=== PATIENT | female | born 1935 | race Caucasian/White ===

== ENCOUNTER 2023-08-12 14:52 | Emergency (ER) | payer MEDICARE, SELFPAY ==
[2023-08-12 14:53] VITALS: BP 153/125; PULSE 92; RESP 18; TEMP 36.9; O2SAT 98; BMI 23.6
--- NOTE | 2023-08-12 15:13 | CT_ITS ---
STUDY: CT BRAIN WITHOUT CONTRAST REASON FOR EXAM: Female, 87 years old. head injury Individualized dose optimization techniques were used for this CT. TECHNIQUE: Transaxial CT imaging of the brain was performed without administration of intravenous contrast material. COMPARISON: None FINDINGS: There are calcifications noted in the distal vertebral arteries. There are calcifications noted in the cavernous carotid arteries. This is consistent for atherosclerotic disease. Normal calvarium. Normal soft tissues. There is mild cerebral atrophy with widening of the extra-axial spaces and ventricular dilatation. There are areas of decreased attenuation within the white matter tracts of the supratentorial brain, consistent with microvascular disease changes. Normal basal ganglia and thalami. Normal brainstem. There is mild cerebellar atrophy. There is no intracranial hemorrhage. There are no findings of an acute ischemic infarction. Degenerative changes of the mandibular condyles. ASPECTS Score for Acute Strokes: 04/03 CT/Brain/Head without Contrast IMPRESSION: There are no acute findings. Chronic involutional changes of the brain. Electronically Signed: Theodore Meléndez MD at 16:09 EST Reading Location ID and State: [facility] / [place] , Service support ,
--- NOTE | 2023-08-12 15:13 | CT_ITS ---
EXAM: CT MAXILLOFACIAL WITHOUT INTRAVENOUS CONTRAST CLINICAL INDICATION: head injury TECHNIQUE: Helically acquired images were obtained of the face without intravenous contrast. This CT exam was performed using one or more of the following dose reduction techniques: automated exposure control, adjustment of the mA and/or kV according to patient size, and/or use of iterative reconstruction technique. RADIATION DOSE: CTDIvol = 29.38 mGy, DLP = 496.03 mGy-cm COMPARISON: No relevant prior studies available. FINDINGS: BONES/JOINTS: Degenerative changes of the mandibular condyles. No displaced fracture. No discrete lytic or blastic abnormalities. SOFT TISSUES: Unremarkable. No focal subcutaneous swelling. No discrete fluid collections. ORBITS: Unremarkable. Both globes are unremarkable. Extraocular muscles are normal. Retrobulbar fat appears unremarkable. SINUSES: Unremarkable as visualized. Clear. MASTOID AIR CELLS: Unremarkable as visualized. Clear. DENTAL: No acute findings. No periodontal osseous erosion. CT/Sinus/Facial Bone IMPRESSION: Degenerative changes of the mandibular condyles. Electronically Signed: Theodore Meléndez MD at 16:11 EST ,
--- NOTE | 2023-08-12 15:13 | RAD_ITS ---
EXAM: XR LEFT HUMERUS, 2 OR MORE VIEWS CLINICAL INDICATION: pain TECHNIQUE: Frontal and lateral views of the left humerus. COMPARISON: No relevant prior studies available. FINDINGS: BONES/JOINTS: Degenerative changes of the left shoulder. No acute fracture. No subluxation. Normal alignment. No sclerotic or destructive changes observed. SOFT TISSUES: Unremarkable. No soft tissue swelling or gas. No radiopaque foreign body. RAD/Humerus min 2 Views IMPRESSION: No acute findings in the left humerus. Electronically Signed: Theodore Meléndez MD at 16:08 EST ,
--- NOTE | 2023-08-12 15:15 | EDS_ITS ---
<Statement entered by Ana Barnett MD - 08/12/23 18:45> I have personally performed a face to face assessment of the patient and have reviewed the OFE Note. Patient presents with son after fall at local store. He let her out of the of the car near the door and she slipped on ice falling onto her left side. She is able to do her shopping but developed swelling around her left eye and presents for evaluation. She did not lose consciousness. She is complaining of facial pain along with left shoulder pain. Patient sitting upright in bed no acute distress. Alert and talkative. Head and neck examination reveals ecchymosis and edema along the lateral portion of the left upper orbital rim. No lacerations noted. No focal C-spine tenderness noted. Heart is regular rate and rhythm. Lung sounds are clear. Abdomen is soft and nontender. Left upper extremity examination reveals mild tenderness at the proximal left humerus. Decreased range of motion secondary to pain. No obvious deformities. Good distal pulses and strong hand grasp. Left humerus and left shoulder x-rays per my interpretation reveal no obvious dislocation or fracture. Radiology interpretation reviewed and agrees. CT scans of the brain, facial bones, and C-spine revealed no evidence of acute trauma or injury. Test results discussed with the patient she will continue supportive care at home. Return instructions provided. HPI History of Present Illness Chief Complaint: Fall Narrative Narrative: 87-year-old female was walking into [facility] and slipped on the ice landing on her left side. She struck her left forehead on the pavement and injured her left shoulder. No LOC. She was with her son and was able to get up and continued shopping. She developed swelling and bruising and presents for evaluation. She has no headache, visual changes, neck pain, or nausea or vomiting. She is on baby aspirin, no blood thinners. She is right-hand dominant. [facility] Medical History no medical history Home Medications aspirin 81 mg tablet,delayed release (Adult Aspirin Regimen) 81 mg PO DAILY 08/12/23 [History Last Taken Unknown] Allergy/AdvReac Type Severity Reaction Status Date / Time No Known Allergies Allergy Verified 08/12/23 14:53 Surgical History (Updated 08/12/23 @ 15:18 by Margoth Andrade) Hx of cholecystectomy Social History Smoking Status: Never smoker ROS ROS ED ROS Narrative Eyes: Negative for visual change. GI: Negative for nausea, vomiting. Neuro: Negative for headache, motor/sensory dysfunction. Musc: Positive for left upper arm pain. EXAM Physical Exam Narrative Exam Narrative: CONST: Patient sitting in no acute distress. EYES: Normal inspection. PERRL, EOMI. ENT: Soft tissue swelling and bruising over left lateral superior orbital rim, no step-offs,, no raccoon eyes or leger sign, no hemotympanum, no nasal septal hematoma, no CSF otorrhea or rhinorrhea. NECK: Normal inspection. No midline spinal tenderness, no step off or crepitus. RESP: No respiratory distress, CTAB. CVS: Regular rate and rhythm, no murmur, no gallop. ABD: Soft and nontender, no guarding or rebound. Back: Normal inspection, no midline tenderness. SKIN: Tiny abrasion right distal ring finger. EXTREMITIES: Normal inspection of upper and lower extremities, mild tenderness left anterior shoulder and proximal humerus with limited shoulder range of motion, no deformity, no tenderness of elbow or distal extremity. No tenderness of right arm or lower extremities. 2+ radial DP pulses. NEURO: Oriented x4. PSYCH: Normal affect. Const Vital Signs: 08/12/23 14:53 08/12/23 15:21 Temperature 98.4 F Temperature Source Temporal Pulse Rate 92 Respiratory Rate 18 Respiratory Effort Normal Non-Labored Respiratory Depth Normal Respiratory Pattern Normal Blood Pressure 153/125 H Blood Pressure Mean 134 Pulse Ox 98 Oxygen Delivery Method Room Air Room Air MDM MDM MDM Narrative Medical decision making narrative: History gathered from: Patient and son Differential: Facial contusions, skull fracture, intracranial hemorrhage Patient had a mechanical fall and struck the left side of her head and left arm on the ground. No LOC. No blood thinners. She is up and ambulatory and has localized pain over the head injury but no other complaints. GCS 15. There is a left sided hematoma over the superior orbital rim but no signs of basilar skull fracture. She is neurologically intact. She is tender over the left shoulder and proximal humerus but has no deformity or crepitus and is distally neurovascularly intact. CT scans of the brain, facial bones, and cervical spine are all negative. Left arm x-rays negative. She declined analgesia here and will take [id number] Tylenol. I discussed head injury return precautions and she was discharged in stable condition. Radiography Diagnostic Testing: Clinical Impression(s) from Imaging Studies Brain CT 08/12/23 15:13 IMPRESSION: There are no acute findings. Chronic involutional changes of the brain. Electronically Signed: Theodore Meléndez MD at 16:09 EST , Facial/Sinus 08/12/23 15:13 IMPRESSION: Degenerative changes of the mandibular condyles. Electronically Signed: Theodore Meléndez MD at 16:11 EST , Humerus X-Ray 08/12/23 15:13 IMPRESSION: No acute findings in the left humerus. Electronically Signed: Theodore Meléndez MD at 16:08 EST , Cervical Spine CT 08/12/23 15:18 IMPRESSION: There are degenerative changes as noted above. Electronically Signed: Theodore Meléndez MD at 16:11 EST , Shoulder X-Ray 08/12/23 15:40 IMPRESSION: There are no acute findings of the shoulder. Electronically Signed: Theodore Meléndez MD at 16:08 EST , ED attending interpretation of left shoulder and humerus shows no acute fracture or dislocation. Discharge Plan Triage Chief Complaint: Fall ED Midlevel Provider: Elda Garcia ED Provider: Ana Barnett Dx/Rx/DC Orders Clinical Impression: Contusion of arm, left, Facial hematoma, Head injury Instructions: Bruises (Contusions) Prescriptions: No Action aspirin [Adult Aspirin Regimen] 81 mg tablet,delayed release (DR/EC) 81 mg PO DAILY Primary Care Provider: THEODORE MORRELL DO Referrals: THEODORE MORRELL DO [Other] Activity Restrictions/Additional Instructions: Your CT scan showed no evidence of broken bones or internal bleeding. Your left arm x-rays are negative. Take Tylenol as needed for pain and use ice for the swelling. Disposition Disposition: Home, Self Care
--- NOTE | 2023-08-12 15:18 | CT_ITS ---
STUDY: X-RAY - CERVICAL SPINE REASON FOR EXAM: Female, 87 years old. fall TECHNIQUE: CT Spine Cervical W/O Contrast Injection COMPARISON: None FINDINGS: Normal anterior atlantoaxial articulation. No acute findings of the odontoid process. There is straightening of the normal cervical lordosis. There is multi-level endplate spondylosis. There is multi-level degenerative disc disease with multilevel disc space narrowing. There is multi-level osseous foraminal stenosis. The soft tissue structures are unremarkable. CT/Spine Cervical without Contras IMPRESSION: There are degenerative changes as noted above. Electronically Signed: Theodore Meléndez MD at 16:11 EST ,
--- OUTSIDE RECORDS SUMMARY | 2023-08-12 15:34 | XMS RPT_ITS | CCD ---
Author Name Unknown Address [address] [place] [address] Organization [facility] Care Team Providers Care Research And Evaluation Analyst Name Role Phone Unavailable Primary Care Provider UnavailRAS Herbert Attending Unavailable Unavailable Primary Care Provider Unavailyash mooney Unavailable Primary Care Provider UnavailDULCE Seymour Attending Unavailable ANA AVILA Referring Unavailable ANA AVILA Referring Unavailable ANA AVILA Attending Unavailable NANCY HIGGINBOTHAM Referring Unavailable VANESSA ARAIZA Attending Unavailable NANCY HIGGINBOTHAM Attending Unavailable Medications Completed/Discontinued Medications Medication Drug Class(es) Dates Sig (Normalized) Sig (Original) aspirin 81 mg delayed release oral tablet (7 sources) Platelet Aggregation Inhibitor, Nonsteroidal Anti-inflammatory Drug take 1 tablet by mouth once daily aspirin, enteric coated (ASPIRIN, ENTERIC COATED) 81 mg EC tablet Take 81 mg by mouth once daily. 0 Active Problems Active Problems Problem Classification Problem Date Documented Da te Episodic/Chronic E Codes: Fall (5 sources) Fall; Translations: [Unspecified fall, initial encounter] Onset: 10-15-2021 Episodic Heart valve disorders (2 sources) Heart murmur; Translations: [Cardiac murmur, unspecified] Onset: 05-16-2022 Episodic Immunizations and screening for infectious disease (5 sources) Patient encounter status; Translations: [Encounter for immunization] Onset: 05-16-2022 Episodic Other aftercare (1 source) Removal of sutures done; Translations: [Encounter for removal of sutures] Episodic Other aftercare (1 source) Wound finding; Translations: [Encounter for other specified aftercare] Episodic Other injuries and conditions due to external causes (1 source) Injury of head; Translations: [Unspecified injury of head, initial encounter] Episodic Other screening for suspected conditions (not mental disorders or infectious disease) (2 sources) Encounter for screening for diabetes mellitus; Translations: [Encounter for screening for lipoid disorders] Onset: 05-05-2022 Episodic Thyroid disorders (4 sources) Thyroid nodule; Translations: [Nontoxic single thyroid nodule] Onset: 05-16-2022 Chronic Past or Other Problems Problem Classification Problem Date Documented Da te Episodic/Chronic Fracture of upper limb (1 source) Nondisplaced fracture of neck of fifth metacarpal bone, left hand, initial encounter for closed fracture; Translations: [Nondisplaced fracture of neck of fifth metacarpal bone, left hand, initial encounter for closed fracture] Onset: 02-09-2022 Episodic Open wounds of extremities (1 source) Laceration without foreign body of left hand, initial encounter; Translations: [Skin tear of left hand without complication, initial encounter] Onset: 02-09-2022 Episodic Open wounds of head; neck; and trunk (2 sources) Laceration of left eyebrow; Translations: [Laceration without foreign body of left eyelid and periocular area, subsequent encounter] Onset: 10-15-2021 Episodic Other injuries and conditions due to external causes (2 sources) Unspecified injury of head, initial encounter; Translations: [Closed head injury, initial encounter] Onset: 10-15-2021 Episodic Superficial injury; contusion (4 sources) Contusion of left hand; Translations: [Contusion of left hand, initial encounter] Onset: 10-15-2021 Episodic Results Test Name Value Interpretation Reference Range Facil ity Vital Signs Date Time Vital Sign Value Performing Clinician Zak tovar 05-16-2022 15:14-0500 Body temperature 97.9 [degF] Dulce Bradford [employer] Work Phone: [facility] 05-16-2022 15:14-0500 Body weight 55.52 kg Dulce Bradford [employer] Work Phone: [facility] 05-16-2022 15:14-0500 Diastolic blood pressure 76 mm[Hg] Dulce Bradford [employer] Work Phone: [facility] 05-16-2022 15:14-0500 Heart rate 90 /min Dulce Bradford [employer] Work Phone: [facility] 05-16-2022 15:14-0500 SaO2% (BldA) [Mass fraction] 97 % Dulce Bradford DO Work Phone: [facility] 05-16-2022 15:14-0500 Systolic blood pressure 136 mm[Hg] Dulce Bradford DO Work Phone: [facility] 04-20-2022 16:07-0400 Body height 157.5 cm Ana Avila APRN.SPOT CHECKER Work Phone: [facility] 04-20-2022 16:07-0400 Body temperature 97 [degF] Ana Avila APRN.SPOT CHECKER Work Phone: [facility] 04-20-2022 16:07-0400 Body weight 53.07 kg Ana Avila APRN.SPOT CHECKER Work Phone: [facility] 04-20-2022 16:07-0400 Diastolic blood pressure 72 mm[Hg] Ana Avila APRN.SPOT CHECKER Work Phone: [facility] 04-20-2022 16:07-0400 Heart rate 88 /min Ana Avila APRN.SPOT CHECKER Work Phone: [facility] 04-20-2022 16:07-0400 SaO2% (BldA) [Mass fraction] 98 % Ana Avila APRN.SPOT CHECKER Work Phone: [facility] 04-20-2022 16:07-0400 Systolic blood pressure 138 mm[Hg] Ana Avila APRN.SPOT CHECKER Work Phone: [facility] 04-11-2022 19:12-0400 Body temperature 98.29 [degF] Ed Coreno PA-C Work Phone: [facility] 04-11-2022 19:12-0400 Body weight 53.07 kg Ed Coreno PA-C Work Phone: [facility] 04-11-2022 19:12-0400 Diastolic blood pressure 93 mm[Hg] Ed Coreno PA-C Work Phone: [facility] 04-11-2022 19:12-0400 Heart rate 109 /min Ed Coreno PA-C Work Phone: [facility] 04-11-2022 19:12-0400 SaO2% (BldA) [Mass fraction] 97 % Ed Coreno PA-C Work Phone: [facility] 04-11-2022 19:12-0400 Systolic blood pressure 171 mm[Hg] Ed Coreno PA-C Work Phone: [facility] 10-31-2021 10:53-0400 Body temperature 99 [degF] Zenaida Chiplinski OVERHEAD GARAGE DOOR HANGER.SPOT CHECKER Work Phone: [facility] 10-31-2021 10:53-0400 Diastolic blood pressure 94 mm[Hg] Zenaida Chiplinski OVERHEAD GARAGE DOOR HANGER.SPOT CHECKER Work Phone: [facility] 10-31-2021 10:53-0400 Heart rate 87 /min Zenaida Chiplinski OVERHEAD GARAGE DOOR HANGER.SPOT CHECKER Work Phone: [facility] 10-31-2021 10:53-0400 SaO2% (BldA) [Mass fraction] 99 % Zenaida Chiplinski OVERHEAD GARAGE DOOR HANGER.SPOT CHECKER Work Phone: [facility] 10-31-2021 10:53-0400 Systolic blood pressure 156 mm[Hg] Zenaida Chiplinski OVERHEAD GARAGE DOOR HANGER.SPOT CHECKER Work Phone: [facility] 10-21-2021 11:41-0400 Body temperature 99.19 [degF] America Lopez OVERHEAD GARAGE DOOR HANGER.SPOT CHECKER Work Phone: [facility] 10-21-2021 11:41-0400 Diastolic blood pressure 85 mm[Hg] America Lopez OVERHEAD GARAGE DOOR HANGER.SPOT CHECKER Work Phone: [facility] 10-21-2021 11:41-0400 Heart rate 76 /min America Lopez OVERHEAD GARAGE DOOR HANGER.SPOT CHECKER Work Phone: [facility] 10-21-2021 11:41-0400 SaO2% (BldA) [Mass fraction] 98 % America Lpoez OVERHEAD GARAGE DOOR HANGER.SPOT CHECKER Work Phone: [facility] 10-21-2021 11:41-0400 Systolic blood pressure 155 mm[Hg] America Lopez APRN.CNP Work Phone: [facility] Encounters Encounter Date Encounter Type Care Provider Facility Start: 05-16-2022 End: 05-17-2022 ambulatory DULCE BRADFORD Facility:[facility] Start: 05-16-2022 End: 05-16-2022 Patient encounter procedure Dulce Bradford DO Work Phone: [facility] Procedures Date Procedure Procedure Detail Performing Clinician Start: 04-29-2022 Us soft tissue head & neck real time imge docm Ana Avila APRN.CNP Work Phone: Start: 04-20-2022 Alignment [employer] COVI D-19 BIVALENT BOOSTER VACCINE, AGE 12+ YR Ana Avila APRN.CNP Work Phone: Plan of Treatment Date Care Activity Detail Author Start: 01-05-2030 Urine microalbumin profile [facility] Start: 05-05-2025 DIABETES SCREEN DIABETES SCREEN [facility] Start: 05-05-2025 Diabetes Screening Diabetes Screening [facility] Start: 02-23-2023 Covid-19 Vaccine ( season) Covid-19 Vaccine ( season) [facility] Start: 02-23-2023 Influenza vaccination Influenza Vaccine (#1) [facility] Start: 06-25-2022 Advance Directive Discussion Advance Directive Discussion [facility] Start: 06-25-2022 Depression Assessment Depression Assessment [facility] Start: 04-20-2022 End: 06-20-2022 Comprehensive metabolic 2000 panel - Serum or Plasma COMP METABOLIC PANEL Lab Routine Screening for diabetes mellitus Expected: 04/20/2022, Expires: 06/20/2022 [facility] Work Phone: Immunizations Immunization Date Immunization Notes Care Provider Fa cility 05-16-2022 pneumococcal Conjuga te, unspecified formulation Dulce Bradford DO Work Phone: [facility] Work Phone: 05-16-2022 pneumococcal (PCV20) vaccine, 20 valent (PREVNAR 20) Dulceamena Bradford DO Work Phone: [facility] 04-20-2022 COVID-19 booster vaccine, age 12+ yr, bivalent ([employer]) Ana Avila APRN.SPOT CHECKER Work Phone: [facility] 03-04-2022 influenza (aIIV4) vaccine, age 65+ yr, quadrivalent, PF (FLUAD QUADRIVALENT) Ana Avila APRN.SPOT CHECKER Work Phone: [facility] 03-04-2022 influenza virus vaccine, unspecified formulation Us 1 [facility] 06-07-2021 zoster vaccine recombinant Ana Avila APRN.SPOT CHECKER Work Phone: [facility] 03-31-2021 zoster vaccine recombinant Ana Avila APRN.SPOT CHECKER Work Phone: [facility] 03-04-2020 influenza, injectabl e, quadrivalent, preservative free Ana Avila APRN.SPOT CHECKER Work Phone: [facility] 01-06-2020 tetanus toxoid, redu janice diphtheria toxoid, and acellular pertussis vaccine, adsorbed America Lopez APRN.SPOT CHECKER Work Phone: [facility] 03-17-2019 Seasonal trivalent influenza vaccine, adjuvanted, preservative free Ana Avila APRN.SPOT CHECKER Work Phone: [facility] 03-25-2018 influenza, high dose seasonal, preservative-free Ana Avila OVERHEAD GARAGE DOOR HANGER.SPOT CHECKER Work Phone: [facility] 04-20-2017 influenza, high dose seasonal, preservative-free Ana Coos OVERHEAD GARAGE DOOR HANGER.SPOT CHECKER Work Phone: [facility] 04-25-2016 influenza, high dose seasonal, preservative-free Ana Coos OVERHEAD GARAGE DOOR HANGER.SPOT CHECKER Work Phone: [facility] 04-20-2015 influenza, seasonal, injectable, preservative free Ana Avila OVERHEAD GARAGE DOOR HANGER.SPOT CHECKER Work Phone: [facility] 03-25-2014 influenza, seasonal, injectable Ana Avila OVERHEAD GARAGE DOOR HANGER.SPOT CHECKER Work Phone: [facility] 04-04-2013 influenza, seasonal, injectable Ana Avila OVERHEAD GARAGE DOOR HANGER.SPOT CHECKER Work Phone: [facility] Payers Date Payer Category Payer Unknown MEDPAY MEDPAY [id number] 2022-Present [phone] [id number] [facility] [id number] [place] [address] Indemnity [id number] 2022 Unknown [id number] 2001 Medicare MEDICARE MEDICAR E A AND B [id number] 2001-Present [phone] [place] [address] Medicare [id number] 2001 Medicare MEDICARE MEDICAR E A AND B [id number] 2001-Present [phone] [place] [address] Medicare [id number] 2001 Medicare [id number] Social History Date Type Detail Facility Start: 01-06-2020 End: 02-08-2022 Tobacco smoking status VAIS Never smoked tobacco [facility] Start: 01-06-2020 End: 02-08-2022 Tobacco use and exposure Smokeless tobacco non-user [facility] Start: 1935 Sex Assigned At Not on file [facility] Start: 10-05-2021 End: 05-16-2022 Exposure to SARS-CoV-2 (event) Not sure [facility] Start: 02-16-2022 End: 04-21-2022 Alcohol intake Lifetime non-drinker (finding) [facility] Start: 04-20-2022 End: 05-16-2022 History SDOH Alcohol Binge 1 [facility] jose alberto Start: 04-20-2022 End: 05-16-2022 History SDOH Social Connections Phone 5 [facility] Start: 04-20-2022 End: 05-16-2022 History SDOH Social Connections Get Together 4 [facility] Start: 04-20-2022 End: 05-16-2022 History SDOH Social Connections Anabaptism 3 [facility] Start: 04-20-2022 History SDOH Physica l Activity DPW 7 [facility] Start: 04-20-2022 End: 05-16-2022 History SDOH Transport Med 2 [facility] jose alberto Start: 05-16-2022 History SDOH Alcohol Std Drinks 0 [facility] Start: 02-09-2022 End: 04-20-2022 History of Social function [facility] jose albetro Start: 02-09-2022 End: 04-20-2022 Social connection and isolation panel [facility] Active Member of Clu bs or Organizations Not on file [facility] Are you now , , , , never or living with a partner? [facility] How often do you hav e 6 or more drinks on 1 occasion? Never [facility] Do you feel stress - tense, restless, nervous, or anxious, or unable to sleep at night because your mind is troubled all the time - these days [OSQ] To some extent [facility] (I/We) worried wheth er (my/our) food would run out before (I/we) got money to buy more. Never true [facility] In the past 12 month s, was there a time when you were not able to pay the mortgage or rent on time? No [facility] Clinical Notes 10-15-2021 to 05-16-2022 Dulce Bradford DO - 05/16/2022 3:25 PM Teagan Adams RT(R) - 04/29/2022 8:15 AM Clair Avila APRN.SPOT CHECKER - 04/20/2022 4:24 PM EDTPatient InstructionsPatient Instructions Note Date & Type Note Facility 05-16-2022 Note HNO ID: [id number] Author: Dulce K Sanchez, DO Service: ? Author Type: Physician Type: Progress Notes Filed: 05/16/2022 3:52 PM Note Text: Pt presents to establish care. Fu er multiple x in past year for mechanical falls. All have been under circumstances when pt not using cane. Has been encouraged over and again to use assistive devices and to not do things ought not be doing. Work ups have been negative re ct neck, brain. Noted thyroid nodules, multiple. Bx suggested Rather unremarkable hx for age. Really has no co today apart from oa aches but not wanting to use meds for sfx The history is provided by the patient and a relative. HISTORY REVIEWED No past medical history on file. No past surgical history on file. No family history on file. Social History Social History Narrative Not on file Allergies: ALLERGIES No Known Allergies Medications: aspirin, enteric coated (ASPIRIN, ENTERIC COATED) 81 mg EC tablet Take 81 mg by mouth once daily. Problem List: There is no problem list on file for this patient. Review of Systems Constitutional: Negative. Respiratory: Negative. Cardiovascular: Negative. Gastrointestinal: Negative. Endocrine: Negative. Neurological: Negative. Light-headedness: mechanical falls. Physical Exam Vitals and nursing note reviewed. Constitutional: Appearance: She is well-developed. Cardiovascular: Rate and Rhythm: Normal rate and regular rhythm. Heart sounds: Murmur (signif holosyst murmur aortic post, less so at mitral.) heard. No friction rub. No gallop. Pulmonary: Effort: Pulmonary effort is normal. Breath sounds: Normal breath sounds. Abdominal: General: Bowel sounds are normal. Palpations: Abdomen is soft. Neurological: Mental Status: She is alert. Psychiatric: Behavior: Behavior normal. BP 136/76 Pulse 90 Temp 36.6 ?C (97.9 ?F) Wt 55.5 kg (122 lb 6.4 oz) SpO2 97% BMI 22.39 kg/m? ASSESSMENT/PLAN: 1. Thyroid nodule - ICD9: 241.0, ICD10: E04.1 (primary diagnosis) Sched bx as recommended. Discuss w pt will do to get info but does not relegate pt to sx. Agrees to move forward - IMAGING GUIDED BIOPSY THYROID 2. Encounter for immunization - ICD9: V03.89, ICD10: Z23 - PNEUMOCOCCAL VACCINE (PREVNAR 20) 3. Cardiac murmur - ICD9: 785.2, ICD10: R01.1 Long standing and has been told before. Apparently no siu/echo for per pt. Discuss can pursue if pt wishes. Dulce Bradford, DO [facility] 05-16-2022 History of Present illness Narrative Pt presents to establish care. Fu er multiple x in past year for mechanical falls. All have been under circumstances when pt not using cane. Has been encouraged over and again to use assistive devices and to not do things ought not be doing. Work ups have been negative re ct neck, brain. Noted thyroid nodules, multiple. Bx suggested Rather unremarkable hx for age. Really has no co today apart from oa aches but not wanting to use meds for sfx The history is provided by the patient and a relative. HISTORY REVIEWED No past medical history on file. No past surgical history on file. No family history on file. Social History Social History Narrative Not on file Allergies: ALLERGIES No Known Allergies Medications: aspirin, enteric coated (ASPIRIN, ENTERIC COATED) 81 mg EC tablet Take 81 mg by mouth once daily. Problem List: There is no problem list on file for this patient. Review of Systems Constitutional: Negative. Respiratory: Negative. Cardiovascular: Negative. Gastrointestinal: Negative. Endocrine: Negative. Neurological: Negative. Light-headedness: mechanical falls. Physical Exam Vitals and nursing note reviewed. Constitutional: Appearance: She is well-developed. Cardiovascular: Rate and Rhythm: Normal rate and regular rhythm. Heart sounds: Murmur (signif holosyst murmur aortic post, less so at mitral.) heard. No friction rub. No gallop. Pulmonary: Effort: Pulmonary effort is normal. Breath sounds: Normal breath sounds. Abdominal: General: Bowel sounds are normal. Palpations: Abdomen is soft. Neurological: Mental Status: She is alert. Psychiatric: Behavior: Behavior normal. BP 136/76 Pulse 90 Temp 36.6 C (97.9 F) Wt 55.5 kg (122 lb 6.4 oz) SpO2 97% BMI 22.39 kg/m ASSESSMENT/PLAN: 1. Thyroid nodule - ICD9: 241.0, ICD10: E04.1 (primary diagnosis) Sched bx as recommended. Discuss w pt will do to get info but does not relegate pt to sx. Agrees to move forward - IMAGING GUIDED BIOPSY THYROID 2. Encounter for immunization - ICD9: V03.89, ICD10: Z23 - PNEUMOCOCCAL VACCINE (PREVNAR 20) 3. Cardiac murmur - ICD9: 785.2, ICD10: R01.1 Long standing and has been told before. Apparently no siu/echo for per pt. Discuss can pursue if pt wishes. Dulce Bradford DO documented in this encounter [facility] 04-29-2022 Note HNO ID: [id number] Author: RT Maritza(R) Service: ? Author Type: Sales Porter Type: Progress Notes Filed: 04/29/2022 8:24 AM Note Text: Radiology Service Progress Note PATIENT NAME: Yeimy Paniagua DATE OF SERVICE: April 29, 2022 TIME: 8:23 AM PATIENT IDENTITY VERIFICATION COMPLETED USING TWO (2) IDENTIFIERS: Name and Date of confirmed by patient verbally. FALL SCREENING: Has the patient had 2 falls in the last year or 1 fall with injury or currently using an Ambulatory Assistive Device (Walker, Cane, Wheelchair, Crutches, etc.)? No PATIENT GENDER DATA: Female. status: : No status: NO. PATIENT RELEVANT IMPLANT DATA REVIEWED: Not Applicable RADIOLOGY DEPARTMENT: Ultrasound thyroid PERIPHERAL IV DATA: Not applicable SIGNED BY: RT Maritza(R) April 29, 2022 8:23 AM [facility] 04-29-2022 History of Present illness Narrative Radiology Service Progress Note PATIENT NAME: Yeimy Paniagua DATE OF SERVICE: April 29, 2022 TIME: 8:23 AM PATIENT IDENTITY VERIFICATION COMPLETED USING TWO (2) IDENTIFIERS: Name and Date of confirmed by patient verbally. FALL SCREENING: Has the patient had 2 falls in the last year or 1 fall with injury or currently using an Ambulatory Assistive Device (Walker, Cane, Wheelchair, Crutches, etc.)? No PATIENT GENDER DATA: Female. status: : No status: NO. PATIENT RELEVANT IMPLANT DATA REVIEWED: Not Applicable RADIOLOGY DEPARTMENT: Ultrasound thyroid PERIPHERAL IV DATA: Not applicable SIGNED BY: RT Maritza(R) April 29, 2022 8:23 AM documented in this encounter [facility] 04-20-2022 Note HNO ID: [id number] Author: Ana Avila APRN.SPOT CHECKER Service: ? Author Type: Nurse Practitioner Type: Progress Notes Filed: 04/21/2022 7:31 AM Note Text: This note was created using F?rsat Bu F?rsatriter. Subjective Yeimy Paniagua is a 86 year old female. Patient presents with: Fall: Fell at home 04/12/2022 Yeimy Paniagua is a 86 year old female who presents as new patient to our practice for ER follow up She fell and hit her head on 04/12/22. Went to ER ER report and CT head and neck reviewed. She is agreeable to recommendation for US thyroid Feeling fine since the fall. No symptoms She feels great. Lives alone in [place]. Son, daughter and son-in law assist in her care Neighbor checks in daily Walks with cane She plans to sell home and move in with son eventually Review of Systems Constitutional: Negative for chills, diaphoresis, fatigue and fever. HENT: Negative for congestion, rhinorrhea and sore throat. Eyes: Negative for visual disturbance. Respiratory: Negative for cough, chest tightness, shortness of breath and wheezing. Cardiovascular: Negative for chest pain, palpitations and leg swelling. Gastrointestinal: Negative for abdominal pain, constipation, diarrhea, nausea and vomiting. Genitourinary: Negative for decreased urine volume, difficulty urinating, frequency and urgency. Skin: Negative for rash. Neurological: Negative for dizziness, tremors, syncope, weakness, light-headedness, numbness and headaches. Psychiatric/Behavioral: Negative for confusion, dysphoric mood and sleep disturbance. The patient is not nervous/anxious. Objective BP 138/72 Pulse 88 Temp 36.1 ?C (97 ?F) (Left Tympanic) Ht 157.5 cm (5' 2 ) Wt 53.1 kg (117 lb) SpO2 98% BMI 21.40 kg/m? Physical Exam Vitals and nursing note reviewed. Constitutional: General: She is not in acute distress. Appearance: Normal appearance. She is not ill-appearing, toxic-appearing or diaphoretic. HENT: Head: Normocephalic and atraumatic. Right Ear: External ear normal. Left Ear: External ear normal. Nose: Nose normal. Eyes: General: Lids are normal. Conjunctiva/sclera: Conjunctivae normal. Pupils: Pupils are equal, round, and reactive to light. Cardiovascular: Rate and Rhythm: Normal rate and regular rhythm. Pulses: Normal pulses. Heart sounds: Murmur heard. Pulmonary: Effort: Pulmonary effort is normal. No respiratory distress. Breath sounds: Normal breath sounds. No wheezing, rhonchi or rales. Musculoskeletal: Cervical back: Normal range of motion and neck supple. Right lower leg: No edema. Left lower leg: No edema. Skin: General: Skin is warm and dry. Capillary Refill: Capillary refill takes less than 2 seconds. Neurological: General: No focal deficit present. Mental Status: She is alert and oriented to person, place, and time. Motor: No weakness. Psychiatric: Mood and Affect: Mood normal. Behavior: Behavior normal. Thought Content: Thought content normal. Judgment: Judgment normal. Assessment and Plan ASSESSMENT/PLAN: 1. Fall, subsequent encounter - ICD9: V58.89, E888.9, ICD10: W19.XXXD (primary diagnosis) - Continue use of cane - Follow up with Dr. Bradford as scheduled to [facility] 2. Encounter for immunization - ICD9: V03.89, ICD10: Z23 - - [employer] COVID-19 BIVALENT BOOSTER VACCINE, AGE 12+ YR - she will return for PNA vac 3. Thyroid nodule - ICD9: 241.0, ICD10: E04.1 - US THYROID/PARATHYROID 4. Screening for diabetes mellitus - ICD9: V77.1, ICD10: Z13.1 - COMP METABOLIC PANEL 5. Screening for lipid disorders - ICD9: V77.91, ICD10: Z13.220 - LIPID PANEL BASIC Ana Avila APRN.[facility] 04-20-2022 History of Present illness Narrative This note was created using NoteWriter. Subjective Yeimy Paniagua is a 86 year old female. Patient presents with: Fall: Fell at home 04/12/2022 Yeimy Paniagua is a 86 year old female who presents as new patient to our practice for ER follow up She fell and hit her head on 04/12/22. Went to ER ER report and CT head and neck reviewed. She is agreeable to recommendation for US thyroid Feeling fine since the fall. No symptoms She feels great. Lives alone in [place]. Son, daughter and son-in law assist in her care Neighbor checks in daily Walks with cane She plans to sell home and move in with son eventually Review of Systems Constitutional: Negative for chills, diaphoresis, fatigue and fever. HENT: Negative for congestion, rhinorrhea and sore throat. Eyes: Negative for visual disturbance. Respiratory: Negative for cough, chest tightness, shortness of breath and wheezing. Cardiovascular: Negative for chest pain, palpitations and leg swelling. Gastrointestinal: Negative for abdominal pain, constipation, diarrhea, nausea and vomiting. Genitourinary: Negative for decreased urine volume, difficulty urinating, frequency and urgency. Skin: Negative for rash. Neurological: Negative for dizziness, tremors, syncope, weakness, light-headedness, numbness and headaches. Psychiatric/Behavioral: Negative for confusion, dysphoric mood and sleep disturbance. The patient is not nervous/anxious. Objective BP 138/72 Pulse 88 Temp 36.1 C (97 F) (Left Tympanic) Ht 157.5 cm (5' 2 ) Wt 53.1 kg (117 lb) SpO2 98% BMI 21.40 kg/m Physical Exam Vitals and nursing note reviewed. Constitutional: General: She is not in acute distress. Appearance: Normal appearance. She is not ill-appearing, toxic-appearing or diaphoretic. HENT: Head: Normocephalic and atraumatic. Right Ear: External ear normal. Left Ear: External ear normal. Nose: Nose normal. Eyes: General: Lids are normal. Conjunctiva/sclera: Conjunctivae normal. Pupils: Pupils are equal, round, and reactive to light. Cardiovascular: Rate and Rhythm: Normal rate and regular rhythm. Pulses: Normal pulses. Heart sounds: Murmur heard. Pulmonary: Effort: Pulmonary effort is normal. No respiratory distress. Breath sounds: Normal breath sounds. No wheezing, rhonchi or rales. Musculoskeletal: Cervical back: Normal range of motion and neck supple. Right lower leg: No edema. Left lower leg: No edema. Skin: General: Skin is warm and dry. Capillary Refill: Capillary refill takes less than 2 seconds. Neurological: General: No focal deficit present. Mental Status: She is alert and oriented to person, place, and time. Motor: No weakness. Psychiatric: Mood and Affect: Mood normal. Behavior: Behavior normal. Thought Content: Thought content normal. Judgment: Judgment normal. Assessment and Plan ASSESSMENT/PLAN: 1. Fall, subsequent encounter - ICD9: V58.89, E888.9, ICD10: W19.XXXD (primary diagnosis) - Continue use of cane - Follow up with Dr. Bradford as scheduled to [facility] 2. Encounter for immunization - ICD9: V03.89, ICD10: Z23 - - PFIZER-BIONTECH COVID-19 BIVALENT BOOSTER VACCINE, AGE 12+ YR - she will return for PNA vac 3. Thyroid nodule - ICD9: 241.0, ICD10: E04.1 - US THYROID/PARATHYROID 4. Screening for diabetes mellitus - ICD9: V77.1, ICD10: Z13.1 - COMP METABOLIC PANEL 5. Screening for lipid disorders - ICD9: V77.91, ICD10: Z13.220 - LIPID PANEL BASIC Ana Avila APRN.SPOT CHECKER documented in this encounter [facility] 04-11-2022 Note HNO ID: [id number] Author: Ed Norwood PA-C Service: ? Author Type: Physician Assistant Vice President Type: Progress Notes Filed: 04/11/2022 8:21 PM Note Text: This note was created using NoteWriter. Subjective Yeimy Paniagua is a 86 year old female. Patient here with son and grand daughter to be evaluated for a fall. States she fell at approx 6:30 pm (about 45 minutes previously) at home when she was plugging in her furnace and my left leg gave out . Indicates that she hit the back of her head on a door. She denies numbness, tingling, palpitations, syncope, LOC, vision changes, fever, chills, N/V, GANT, dizziness, CP, SOB. ROS as below. Has had weight loss d/t not eating and has decreased sleep d/t grief from losing her of 64 years October of this year. States she lives alone and this will be her third fall since September of this year (10/15/2021 and 02/08/2022). Not on blood thinners. No alcohol or drug use. The history is provided by the patient and a relative. No banana room cutter was used. Fall The accident occurred Less than 1 hour ago. The fall occurred while standing. She fell from a height of 3 to 5 ft. Impact surface: hard wood door. There was no blood loss. The point of impact was the head. The pain is present in the head. The pain is at a severity of 0/10. The patient is experiencing no pain. She was Ambulatory at the scene. There was No entrapment after the fall. There was No drug use involved in the accident. There was No alcohol use involved in the accident. Pertinent negatives include no visual change, no fever, no numbness, no abdominal pain, no bowel incontinence, no nausea, no vomiting, no hematuria, no headaches, no hearing loss, no loss of consciousness and no tingling. She has tried nothing for the symptoms. The treatment provided no relief. Review of Systems Constitutional: Negative for activity change, appetite change, chills, diaphoresis, fatigue, fever and unexpected weight change. HENT: Negative. Eyes: Negative for photophobia, pain, discharge, redness, itching and visual disturbance. Respiratory: Negative for apnea, cough, choking, chest tightness, shortness of breath, wheezing and stridor. Cardiovascular: Negative for chest pain, palpitations and leg swelling. Gastrointestinal: Negative for abdominal pain, bowel incontinence, nausea and vomiting. Genitourinary: Negative for hematuria. Musculoskeletal: Positive for arthralgias (left leg). Negative for back pain, gait problem, joint swelling, myalgias, neck pain and neck stiffness. Skin: Negative for color change, pallor, rash and wound. Neurological: Negative for dizziness, tingling, tremors, seizures, loss of consciousness, syncope, facial asymmetry, speech difficulty, weakness, light-headedness, numbness and headaches. Psychiatric/Behavioral: Positive for sleep disturbance. Negative for agitation, confusion and hallucinations. The patient is not nervous/anxious. Objective BP 171/93 Pulse 109 Temp 36.8 ?C (98.3 ?F) (Temporal) Wt 53.1 kg (117 lb) SpO2 97% BMI 21.40 kg/m? VSS Physical Exam Vitals and nursing note reviewed. Constitutional: General: She is not in acute distress. Appearance: Normal appearance. She is normal weight. She is not ill-appearing, toxic-appearing or diaphoretic. HENT: Head: Contusion (small tender mass back of head) and mass (small tender mass back of head) present. No raccoon eyes, Reyna's sign, abrasion, right periorbital erythema, left periorbital erythema or laceration. Hair is normal. Jaw: There is normal jaw occlusion. Right Ear: Tympanic membrane, ear canal and external ear normal. Left Ear: Tympanic membrane, ear canal and external ear normal. Mouth/Throat: Mouth: Mucous membranes are moist. Pharynx: Oropharynx is clear. No oropharyngeal exudate or posterior oropharyngeal erythema. Eyes: Extraocular Movements: Extraocular movements intact. Pupils: Pupils are equal, round, and reactive to light. Cardiovascular: Rate and Rhythm: Regular rhythm. Tachycardia present. Pulses: Normal pulses. Heart sounds: Normal heart sounds. No murmur heard. No friction rub. No gallop. Comments: Elevated BP Pulmonary: Effort: Pulmonary effort is normal. No respiratory distress. Breath sounds: Normal breath sounds. No stridor. No wheezing, rhonchi or rales. Musculoskeletal: General: No swelling, tenderness, deformity or signs of injury. Normal range of motion. Cervical back: Normal range of motion and neck supple. No rigidity or tenderness. Right lower leg: No edema. Left lower leg: No edema. Lymphadenopathy: Cervical: No cervical adenopathy. Skin: General: Skin is warm and dry. Coloration: Skin is not jaundiced or pale. Findings: No bruising, erythema, lesion or rash. Neurological: General: No focal deficit present. Mental Status: She is alert and oriented to person, place, and time. Mental status is at baseli (more content not included)... [facility] 04-11-2022 Instructions Ed Norwood PA-C - 04/11/2022 7:34 PM EDT Please proceed to [facility] for further care Fluids and rest May take Acetaminophen for pain relief HEAD INJURY-ADULT BASIC INFORMATION DESCRIPTION: Injury to the head, with or without unconsciousness or other visible signs. Head wounds may be open or closed depending on the nature of the injury. FREQUENT SIGNS AND SYMPTOMS Depends on the extent of injury. The presence or absence of swelling at the injury site is not related to the seriousness of injury. Signs and symptoms include any or all of the following: Drowsiness or confusion. Vomiting and nausea. Blurred vision. Pupils of different size. Loss of consciousness either temporarily or for long periods. Amnesia or memory lapses. Irritability. Headache. Bleeding of the scalp, if the skin is broken. POSSIBLE COMPLICATIONS: Bleeding under the skull (subdural hemorrhage and hematoma). Bleeding into the brain TREATMENT GENERAL MEASURES: Hospitalization for observation, if signs and symptoms are severe. Diagnostic tests may include laboratory studies of blood and cerebrospinal fluid, X-rays of the skull and neck and CT scan of the head. The extent of injury can be determined only with careful examination and observation. After a doctor s examination the injured person may be sent home, but a responsible person must stay with the person and watch for serious symptoms. The first 24 hours or as recommended. Report to the doctor immediately if you cant awaken or arouse the person Report also any of the following: Vomiting. Inability to move arms and legs equally well on both sides. Temperature above 100 degrees F (37.8 degrees C). Stiff neck. Pupils of unequal size or shape. Convulsions. Noticeable restlessness. Severe headache that persists longer than 4 hours after injury. Confusion or disorientation. Additional information available from the national [employer], [address] [place] [address], . MEDICATION Don t give any medicine including non-prescription acetaminophen or aspirin until the diagnosis is certain. ACTIVITY The patient should rest in bed until the danger is over. Normal activity may then be resumed as symptoms improve. DIET Full liquid diet until the danger passes. NOTIFY OUR OFFICE IF You or a family member has symptoms of a head injury or observed them in someone else. After an injury, you observe any of the symptoms discussed in General Measures. Copyright 1994 by [email or web address] documented in this encounter [facility] 04-11-2022 History of Present illness Narrative This note was created using NoteWriter. Subjective Yeimy I Galonski is a 86 year old female. Patient here with son and grand daughter to be evaluated for a fall. States she fell at approx 6:30 pm (about 45 minutes previously) at home when she was plugging in her furnace and my left leg gave out . Indicates that she hit the back of her head on a door. She denies numbness, tingling, palpitations, syncope, LOC, vision changes, fever, chills, N/V, GANT, dizziness, CP, SOB. ROS as below. Has had weight loss d/t not eating and has decreased sleep d/t grief from losing her of 64 years October of this year. States she lives alone and this will be her third fall since September of this year (10/15/2021 and 02/08/2022). Not on blood thinners. No alcohol or drug use. The history is provided by the patient and a relative. No banana room cutter was used. Fall The accident occurred Less than 1 hour ago. The fall occurred while standing. She fell from a height of 3 to 5 ft. Impact surface: hard wood door. There was no blood loss. The point of impact was the head. The pain is present in the head. The pain is at a severity of 0/10. The patient is experiencing no pain. She was Ambulatory at the scene. There was No entrapment after the fall. There was No drug use involved in the accident. There was No alcohol use involved in the accident. Pertinent negatives include no visual change, no fever, no numbness, no abdominal pain, no bowel incontinence, no nausea, no vomiting, no hematuria, no headaches, no hearing loss, no loss of consciousness and no tingling. She has tried nothing for the symptoms. The treatment provided no relief. Review of Systems Constitutional: Negative for activity change, appetite change, chills, diaphoresis, fatigue, fever and unexpected weight change. HENT: Negative. Eyes: Negative for photophobia, pain, discharge, redness, itching and visual disturbance. Respiratory: Negative for apnea, cough, choking, chest tightness, shortness of breath, wheezing and stridor. Cardiovascular: Negative for chest pain, palpitations and leg swelling. Gastrointestinal: Negative for abdominal pain, bowel incontinence, nausea and vomiting. Genitourinary: Negative for hematuria. Musculoskeletal: Positive for arthralgias (left leg). Negative for back pain, gait problem, joint swelling, myalgias, neck pain and neck stiffness. Skin: Negative for color change, pallor, rash and wound. Neurological: Negative for dizziness, tingling, tremors, seizures, loss of consciousness, syncope, facial asymmetry, speech difficulty, weakness, light-headedness, numbness and headaches. Psychiatric/Behavioral: Positive for sleep disturbance. Negative for agitation, confusion and hallucinations. The patient is not nervous/anxious. Objective BP 171/93 Pulse 109 Temp 36.8 C (98.3 F) (Temporal) Wt 53.1 kg (117 lb) SpO2 97% BMI 21.40 kg/m VSS Physical Exam Vitals and nursing note reviewed. Constitutional: General: She is not in acute distress. Appearance: Normal appearance. She is normal weight. She is not ill-appearing, toxic-appearing or diaphoretic. HENT: Head: Contusion (small tender mass back of head) and mass (small tender mass back of head) present. No raccoon eyes, Reyna's sign, abrasion, right periorbital erythema, left periorbital erythema or laceration. Hair is normal. Jaw: There is normal jaw occlusion. Right Ear: Tympanic membrane, ear canal and external ear normal. Left Ear: Tympanic membrane, ear canal and external ear normal. Mouth/Throat: Mouth: Mucous membranes are moist. Pharynx: Oropharynx is clear. No oropharyngeal exudate or posterior oropharyngeal erythema. Eyes: Extraocular Movements: Extraocular movements intact. Pupils: Pupils are equal, round, and reactive to light. Cardiovascular: Rate and Rhythm: Regular rhythm. Tachycardia present. Pulses: Normal pulses. Heart sounds: Normal heart sounds. No murmur heard. No friction rub. No gallop. Comments: Elevated BP Pulmonary: Effort: Pulmonary effort is normal. No respiratory distress. Breath sounds: Normal breath sounds. No stridor. No wheezing, rhonchi or rales. Musculoskeletal: General: No swelling, tenderness, deformity or signs of injury. Normal range of motion. Cervical back: Normal range of motion and neck supple. No rigidity or tenderness. Right lower leg: No edema. Left lower leg: No edema. Lymphadenopathy: Cervical: No cervical adenopathy. Skin: General: Skin is warm and dry. Coloration: Skin is not jaundiced or pale. Findings: No bruising, erythema, lesion or rash. Neurological: General: No focal deficit present. Mental Status: She is alert and oriented to person, place, and time. Mental status is at baseline. Cranial Nerves: No cranial nerve deficit. Sensory: No sensory deficit. Motor: No weakness. Coordination: Coordination normal. Gait: Gait normal. Psychiatric: Mood and Affect: Mood normal. Behavior: Behavior normal. Assessment and Plan ASSESSMENT/PLAN: 1. Fall, initial encounter - ICD9: E888.9, ICD10: W19.XXXA (primary diagnosis) 2. Injury of head, initial encounter - ICD9: 959.01, ICD10: S09.90XA Sent patient to [facility] for further care Fluids and rest May take Acetaminophen for pain relief See visit diagnoses, orders and follow up recommendations Reviewed medication list I discussed the nature and progression of the above described condition and have reviewed test results that were completed today in clinic with the patient and family The patient has been advised to return to the clinic in the event of clinical condition not improving If any worsening of condition patient advised to go to [facility] Emergency room/[facility] emergency room/call 911 Advised to continue health maintenance with primary care provider Education provided regarding visit today, see after visit summary The patient and family verbalized understanding of the above and all questions were answered prior to discharge. The patient was discharged in stable condition without incident. Ed Norwood PA-C documented in this encounter [facility] 02-16-2022 Note HNO ID: [id number] Author: Vanessa Araiza PA-C Service: ? Author Type: Physician Assistant Vice President Type: Progress Notes Filed: 02/16/2022 8:02 AM Note Text: Vanessa Araiza PA-C Department of Orthopaedics Orthopaedics [address] [place] [id number] Dept: [phone] February 16, 2022 CHIEF COMPLAINT: New and Fracture of the Left Hand Ms. Yeimy Paniagua is a 86 year old female she presents with a left hand injury after a fall about 7 days ago. Patient was entering a casino for dinner when she tripped on the transition between the tile on the carpet floor. She initially went to the emergency room because she had an abrasion on her forehead that would not stop bleeding. She states that her hand is a 1 out of 10 soreness more or less related to the splint rubbing on the proximal forearm. She is right-hand dominant and lives alone, her son's, and check on her quite often. She ambulates with a cane that she holds in her right hand. ASSESSMENT: S60.222A Contusion of left hand, initial encounter (primary encounter diagnosis) S60.222A Traumatic ecchymosis of left hand, initial encounter PLAN: X-ray was questionable for a left fifth metacarpal base fracture, she does not have any tenderness to palpation over that area however. She is quite a bit of bruising and swelling in her hand she does have a small abrasion along the lateral border of the fifth MCP joint. We will get her into a mood Abir brace just for comfort. We discussed proper handwashing as well as icing and elevating. She can follow-up on an as-needed basis. Ms. Yeimy Paniagua was advised as to contrast therapies and/or to take analgesics/anti-inflammatories as needed and all contraindications were reviewed. OBJECTIVE: Ms. Yeimy Paniagua is a pleasant 86 year old in no apparent distress. Gen:There were no vitals taken for this visit. nl development, non obese, no deformities ENT: Normocephalic, normal hearing, moist mucosa CV: Pulses:Radial= 2+ and symmetric, capillary refill < 2 secs, no peripheral edema/varicosities Skin: no rash, bruising or lesions. Good turgor. Psych: cooperative and appropriate, alert and oriented x 3, good mood and affect. Musculoskeletal: Patient has a small abrasion along the lateral border of the left MCP joint. Abrasion is well scabbed over, not erythematous and without drainage. Patient is actively using her hand to speak, flexing extending the wrist and fingers without discomfort. There is no tenderness palpation over the base of the fifth metacarpal, no tenderness over into the other metacarpals and/or tenderness over the distal radius or ulna. Imaging: * * *Final Report* * * DATE OF EXAM: Feb 08 2022 11:46PM [id number] - XR HAND 3V PA/LAT/OBL LT / PROCEDURE REASON: Fracture, hand * * * * Physician Interpretation * * * * History: Evaluate for fracture TECHNIQUE: 3 views left hand. No priors Findings/ impression: Vertical lucency on oblique views of the hand at the base of the fifth metacarpal could represent a nondisplaced fracture. Correlate for pain in this region. No dislocations. Tattoo Identifier: PSCB Transcribe Date/Time: Feb 08 2022 11:56P Dictated by : EDUAR MARES MD This examination was interpreted and the report reviewed and electronically signed by: EDUAR MARES MD on Feb 09 2022 12:04AM EST left hand with mild edema extending from the wrist into all the digits. There is ecchymosis in the palm of the hand extending into the middle and ring digits. Supporting Subjective Information Below: Past Surgical History: No past surgical history on file. Medications: Current Outpatient Medications Medication Sig aspirin, enteric coated (ASPIRIN, ENTERIC COATED) 81 mg EC tablet Take 81 mg by mouth once daily. No current facility-administered medications for this visit. Allergies: Patient has no known allergies. ROS: General (negative for fatigue, malaise, weight loss/gain) HEENT (negative for headache, earache, recent vision changes, sinus pain, sore throat) Respiratory (no recent shortness of breath, hemoptysis) CV (negative for chest tightness, palpitations) Musculoskeletal (see HPI) Psych (no depression, anxiety) This note was partially generated using [employer] voice recognition system, and there may be some incorrect words, spellings, and punctuation that were not noted in checking the note before saving. Vanessa Araiza PA-C [facility] 02-16-2022 History of Present illness Narrative Vanessa Araiza PA-C Department of Orthopaedics Orthopaedics [address] [place] [id number] Dept: [phone] February 16, 2022 CHIEF COMPLAINT: New and Fracture of the Left Hand Ms. Yeimy Paniagua is a 86 year old female she presents with a left hand injury after a fall about 7 days ago. Patient was entering a casino for dinner when she tripped on the transition between the tile on the carpet floor. She initially went to the emergency room because she had an abrasion on her forehead that would not stop bleeding. She states that her hand is a 1 out of 10 soreness more or less related to the splint rubbing on the proximal forearm. She is right-hand dominant and lives alone, her son's, and check on her quite often. She ambulates with a cane that she holds in her right hand. ASSESSMENT: S60.222A Contusion of left hand, initial encounter (primary encounter diagnosis) S60.222A Traumatic ecchymosis of left hand, initial encounter PLAN: X-ray was questionable for a left fifth metacarpal base fracture, she does not have any tenderness to palpation over that area however. She is quite a bit of bruising and swelling in her hand she does have a small abrasion along the lateral border of the fifth MCP joint. We will get her into a mood Abir brace just for comfort. We discussed proper handwashing as well as icing and elevating. She can follow-up on an as-needed basis. Ms. Yeimy Paniagua was advised as to contrast therapies and/or to take analgesics/anti-inflammatories as needed and all contraindications were reviewed. OBJECTIVE: Ms. Yeimy Paniagua is a pleasant 86 year old in no apparent distress. Gen:There were no vitals taken for this visit. nl development, non obese, no deformities ENT: Normocephalic, normal hearing, moist mucosa CV: Pulses:Radial= 2+ and symmetric, capillary refill < 2 secs, no peripheral edema/varicosities Skin: no rash, bruising or lesions. Good turgor. Psych: cooperative and appropriate, alert and oriented x 3, good mood and affect. Musculoskeletal: Patient has a small abrasion along the lateral border of the left MCP joint. Abrasion is well scabbed over, not erythematous and without drainage. Patient is actively using her hand to speak, flexing extending the wrist and fingers without discomfort. There is no tenderness palpation over the base of the fifth metacarpal, no tenderness over into the other metacarpals and/or tenderness over the distal radius or ulna. Imaging: * * *Final Report* * * DATE OF EXAM: Feb 08 2022 11:46PM [id number] - XR HAND 3V PA/LAT/OBL LT / PROCEDURE REASON: Fracture, hand * * * * Physician Interpretation * * * * History: Evaluate for fracture TECHNIQUE: 3 views left hand. No priors Findings/ impression: Vertical lucency on oblique views of the hand at the base of the fifth metacarpal could represent a nondisplaced fracture. Correlate for pain in this region. No dislocations. Tattoo Identifier: ROSALIND Transcribe Date/Time: Feb 08 2022 11:56P Dictated by : EDUAR MARES MD This examination was interpreted and the report reviewed and electronically signed by: EDUAR MARES MD on Feb 09 2022 12:04AM EST left hand with mild edema extending from the wrist into all the digits. There is ecchymosis in the palm of the hand extending into the middle and ring digits. Supporting Subjective Information Below: Past Surgical History: No past surgical history on file. Medications: Current Outpatient Medications Medication Sig aspirin, enteric coated (ASPIRIN, ENTERIC COATED) 81 mg EC tablet Take 81 mg by mouth once daily. No current facility-administered medications for this visit. Allergies: Patient has no known allergies. ROS: General (negative for fatigue, malaise, weight loss/gain) HEENT (negative for headache, earache, recent vision changes, sinus pain, sore throat) Respiratory (no recent shortness of breath, hemoptysis) CV (negative for chest tightness, palpitations) Musculoskeletal (see HPI) Psych (no depression, anxiety) This note was partially generated using [employer] voice recognition system, and there may be some incorrect words, spellings, and punctuation that were not noted in checking the note before saving. Vanessa Araiza PA-C documented in this encounter [facility] 02-09-2022 Note HNO ID: [id number] Author: RT Nayeli(R) Service: ? Author Type: Sales Porter Type: Progress Notes Filed: 02/08/2022 11:44 PM Note Text: Radiology Service Progress Note PATIENT NAME: Yeimy Paniagua DATE OF SERVICE: February 08, 2022 TIME: 11:44 PM PATIENT IDENTITY VERIFICATION COMPLETED USING TWO (2) IDENTIFIERS: Name and Date of confirmed by patient verbally. FALL SCREENING: Has the patient had 2 falls in the last year or 1 fall with injury or currently using an Ambulatory Assistive Device (Walker, Cane, Wheelchair, Crutches, etc.)? No PATIENT GENDER DATA: Female. status: : No status: NO. PATIENT RELEVANT IMPLANT DATA REVIEWED: Yes RADIOLOGY DEPARTMENT: General X-ray: Exam(s) Completed: Upper Extremity X-Ray(s): Hand, left PERIPHERAL IV DATA: Not applicable SIGNED BY: RT Nayeli(R) February 08, 2022 11:44 PM [facility] 10-31-2021 Note HNO ID: [id number] Author: Zenaida Hou APRN.SPOT CHECKER Service: ? Author Type: Nurse Practitioner Type: Progress Notes Filed: 10/31/2021 1:13 PM Note Text: This note was created using [employer] Subjective Yeimy Paniagua is a 86 year old female. The history is provided by the patient. [facility]he[facility] of wound to LT brow. Pt fell in her bathroom at home 10/15/21- sutures placed to a laceration just above the LT brow Presented [facility] for suture removal 10/21/21- per note, sutures removed without difficulty For the last 10 days she has been keeping covered with bacitracin ointment and bandage Today presents requesting wound check- wants to know that wound is OK and what further wound care is needed She denies any bleeding, drainage, redness, bruising or swelling to area Review of Systems Constitutional: Negative for fever. Skin: Positive for wound. Negative for color change, pallor and rash. Objective BP 156/94 Pulse 87 Temp 37.2 ?C (99 ?F) (Temporal) SpO2 99% Physical Exam Vitals reviewed. Constitutional: Appearance: Normal appearance. HENT: Head: Skin: General: Skin is warm and dry. Neurological: Mental Status: She is alert. Psychiatric: Mood and Affect: Mood normal. Behavior: Behavior normal. Assessment and Plan 1. Visit for wound check - ICD9: V58.89, ICD10: Z51.89 (primary diagnosis) 2. Laceration of left eyebrow, subsequent encounter - ICD9: V58.89, 873.42, ICD10: S01.112D Wound appears appropriately healed OK to wash normally, leave open to air No sign of infection noted Follow up PRAmena Hou APRN.CNP [facility] 10-31-2021 History of Present illness Narrative Images from the original note were not included. This note was created using [employer] Subjective Yeimy Paniagua is a 86 year old female. The history is provided by the patient. [facility] recheck of wound to LT brow. Pt fell in her bathroom at home 10/15/21- sutures placed to a laceration just above the LT brow Presented here in [facility] for suture removal 10/21/21- per note, sutures removed without difficulty For the last 10 days she has been keeping covered with bacitracin ointment and bandage Today presents requesting wound check- wants to know that wound is OK and what further wound care is needed She denies any bleeding, drainage, redness, bruising or swelling to area Review of Systems Constitutional: Negative for fever. Skin: Positive for wound. Negative for color change, pallor and rash. Objective BP 156/94 Pulse 87 Temp 37.2 C (99 F) (Temporal) SpO2 99% Physical Exam Vitals reviewed. Constitutional: Appearance: Normal appearance. HENT: Head: Skin: General: Skin is warm and dry. Neurological: Mental Status: She is alert. Psychiatric: Mood and Affect: Mood normal. Behavior: Behavior normal. Assessment and Plan 1. Visit for wound check - ICD9: V58.89, ICD10: Z51.89 (primary diagnosis) 2. Laceration of left eyebrow, subsequent encounter - ICD9: V58.89, 873.42, ICD10: S01.112D Wound appears appropriately healed OK to wash normally, leave open to air No sign of infection noted Follow up CARLENE Hou APRN.ZAK documented in this encounter [facility] 10-21-2021 Note HNO ID: [id number] Author: America Lopez APRN.CNP Service: ? Author Type: Nurse Practitioner Type: Progress Notes Filed: 10/21/2021 12:44 PM Note Text: This note was created using NoteWriter. Subjective Yeimy Paniagua is a 85 year old female. This 85 year old female presents to [facility] with request for suture removal. 6 simple interrupted placed by [facility] ED 6 days ago. Pt fell. Resolving bruising to knees and face. Pt reports good intake, denies issues with swallowing or chewing. Pt denies fever, discharge, pain at the site. Pt is pleasant, articulate and in NAD. The history is provided by the patient. Review of Systems Constitutional: Negative for activity change, appetite change, chills, diaphoresis, fatigue and fever. Respiratory: Negative for shortness of breath. Cardiovascular: Negative for chest pain. Gastrointestinal: Negative for abdominal pain. Musculoskeletal: Positive for gait problem. Stable gait with quad cane for support Skin: Positive for wound. Negative for color change. Well approx lac to right brow region, healing, sutures placed 6 days ago Allergic/Immunologic: Negative for immunocompromised state. Neurological: Negative for dizziness, light-headedness and headaches. Hematological: Negative. Does not bruise/bleed easily. Psychiatric/Behavioral: Negative. Objective BP 155/85 Pulse 76 Temp 37.3 ?C (99.2 ?F) (Temporal) SpO2 98% No past medical history on file. Current Outpatient Medications on File Prior to Visit Medication Sig - aspirin, enteric coated (ASPIRIN, ENTERIC COATED) 81 mg EC tablet Take 81 mg by mouth once daily. No current facility-administered medications on file prior to visit. Physical Exam Vitals and nursing note reviewed. Constitutional: General: She is not in acute distress. Appearance: Normal appearance. She is not ill-appearing, toxic-appearing or diaphoretic. HENT: Head: Normocephalic and atraumatic. Right Ear: Tympanic membrane normal. Left Ear: Tympanic membrane normal. Nose: Nose normal. Mouth/Throat: Mouth: Mucous membranes are moist. Eyes: General: Right eye: No discharge. Left eye: No discharge. Extraocular Movements: Extraocular movements intact. Conjunctiva/sclera: Conjunctivae normal. Pupils: Pupils are equal, round, and reactive to light. Cardiovascular: Rate and Rhythm: Normal rate. Pulmonary: Effort: Pulmonary effort is normal. Musculoskeletal: General: Normal range of motion. Cervical back: Normal range of motion and neck supple. Skin: General: Skin is warm. Findings: Bruising present. Comments: Lac to left brow area, well approx, scant bleeding, 6 simple interrupted sutures removed. No appreciated infection or bleeding. Well tolerated removal. Scant film of Bacitracin applied following suture removal. Neurological: Mental Status: She is alert and oriented to person, place, and time. Psychiatric: Mood and Affect: Mood normal. Behavior: Behavior normal. ASSESSMENT/PLAN: 1. Visit for suture removal - ICD9: V58.32, ICD10: Z48.02 Bacitracin ointment to suture site at night x 10 days Return to us or primary doctor if pain, redness, swelling, discharge of laceration site Wash normally- pat dry Still healing- so be gentle x 1 week OK to leave open OK to stop jose carlos wrap to knees Bruising is resolving, gait unimpaired, no tenderness Consider compression hose as discussed- [employer] ok- to help with ankle swelling, elevate when able Follow up with primary care as needed OK to restart aspirin on Sun next week America Lopez APRN.[facility] 10-21-2021 History of Present illness Narrative This note was created using [employer]. Subjective Yeimy Paniagua is a 85 year old female. This 85 year old female presents to [facility] with request for suture removal. 6 simple interrupted placed by [facility] ED 6 days ago. Pt fell. Resolving bruising to knees and face. Pt reports good intake, denies issues with swallowing or chewing. Pt denies fever, discharge, pain at the site. Pt is pleasant, articulate and in NAD. The history is provided by the patient. Review of Systems Constitutional: Negative for activity change, appetite change, chills, diaphoresis, fatigue and fever. Respiratory: Negative for shortness of breath. Cardiovascular: Negative for chest pain. Gastrointestinal: Negative for abdominal pain. Musculoskeletal: Positive for gait problem. Stable gait with quad cane for support Skin: Positive for wound. Negative for color change. Well approx lac to right brow region, healing, sutures placed 6 days ago Allergic/Immunologic: Negative for immunocompromised state. Neurological: Negative for dizziness, light-headedness and headaches. Hematological: Negative. Does not bruise/bleed easily. Psychiatric/Behavioral: Negative. Objective BP 155/85 Pulse 76 Temp 37.3 C (99.2 F) (Temporal) SpO2 98% No past medical history on file. Current Outpatient Medications on File Prior to Visit Medication Sig aspirin, enteric coated (ASPIRIN, ENTERIC COATED) 81 mg EC tablet Take 81 mg by mouth once daily. No current facility-administered medications on file prior to visit. Physical Exam Vitals and nursing note reviewed. Constitutional: General: She is not in acute distress. Appearance: Normal appearance. She is not ill-appearing, toxic-appearing or diaphoretic. HENT: Head: Normocephalic and atraumatic. Right Ear: Tympanic membrane normal. Left Ear: Tympanic membrane normal. Nose: Nose normal. Mouth/Throat: Mouth: Mucous membranes are moist. Eyes: General: Right eye: No discharge. Left eye: No discharge. Extraocular Movements: Extraocular movements intact. Conjunctiva/sclera: Conjunctivae normal. Pupils: Pupils are equal, round, and reactive to light. Cardiovascular: Rate and Rhythm: Normal rate. Pulmonary: Effort: Pulmonary effort is normal. Musculoskeletal: General: Normal range of motion. Cervical back: Normal range of motion and neck supple. Skin: General: Skin is warm. Findings: Bruising present. Comments: Lac to left brow area, well approx, scant bleeding, 6 simple interrupted sutures removed. No appreciated infection or bleeding. Well tolerated removal. Scant film of Bacitracin applied following suture removal. Neurological: Mental Status: She is alert and oriented to person, place, and time. Psychiatric: Mood and Affect: Mood normal. Behavior: Behavior normal. ASSESSMENT/PLAN: 1. Visit for suture removal - ICD9: V58.32, ICD10: Z48.02 Bacitracin ointment to suture site at night x 10 days Return to us or primary doctor if pain, redness, swelling, discharge of laceration site Wash normally- pat dry Still healing- so be gentle x 1 week OK to leave open OK to stop jose carlos wrap to knees Bruising is resolving, gait unimpaired, no tenderness Consider compression hose as discussed- [employer] ok- to help with ankle swelling, elevate when able Follow up with primary care as needed OK to restart aspirin on Sun next week America Lopez APRN.SPOT CHECKER documented in this encounter [facility] 10-21-2021 Instructions America Lopez APRN.ZAK - 10/21/2021 12:01 PM EDT Bacitracin ointment to suture site at night x 10 days Return to us or primary doctor if pain, redness, swelling, discharge Wash normally- pat dry Still healing so be gentle x 1 week OK to leave open documented in this encounter [facility] 10-15-2021 Note HNO ID: [id number] Author: RT Irasema(R) Service: ? Author Type: Technologist Type: Progress Notes Filed: 10/15/2021 6:50 PM Note Text: Radiology Service Progress Note PATIENT NAME: Yeimy Paniagua DATE OF SERVICE: October 15, 2021 TIME: 6:49 PM PATIENT IDENTITY VERIFICATION COMPLETED USING TWO (2) IDENTIFIERS: Name and Date of confirmed by patient verbally and Name and Date of confirmed by identification band. FALL SCREENING: Has the patient had 2 falls in the last year or 1 fall with injury or currently using an Ambulatory Assistive Device (Walker, Cane, Wheelchair, Crutches, etc.)? Emergency Room Patient: Screened in ED PATIENT GENDER DATA: Female. status: : No status: NO. PATIENT RELEVANT IMPLANT DATA REVIEWED: Not Applicable RADIOLOGY DEPARTMENT: General X-ray: Exam(s) Completed: Lower Extremity X-Ray(s): Knee, AP / LAT Left PERIPHERAL IV DATA: Not applicable SIGNED BY: RT Irasema(R) October 15, 2021 6:49 PM [facility] Diagnosis Visit for wound check- Primary Encounter for other specified aftercare Laceration of left eyebrow, subsequent encounter [facility] Diagnosis Contusion of left hand, initial encounter- Primary Traumatic ecchymosis of left hand, initial encounter [facility]* Diagnosis Fall, initial encounter- Primary Injury of head, initial encounter documented in this encounter [facility] note* Diagnosis Fall, subsequent encounter- Primary Encounter for immunization Need for other specified prophylactic vaccination against single bacterial disease Thyroid nodule Nontoxic uninodular goiter Screening for diabetes mellitus Screening for lipid disorders [facility] Diagnosis Thyroid nodule- Primary Nontoxic uninodular goiter Encounter for immunization Need for other specified prophylactic vaccination against single bacterial disease Cardiac murmur Undiagnosed cardiac murmurs [facility]* Diagnosis Thyroid nodule Nontoxic uninodular goiter documented in this encounter [facility] for referral (narrative)* Diagnostic Procedure Only (Routine) - Pending Review Specialty Diagnoses / Procedures Referred By Bill moody Referred To Contact US IMAGING Diagnoses Thyroid nodule Procedures US THYROID/PARATHYROID US SOFT TISSUE HEAD & NECK REAL TIME IMGE Ana Trujillo APRN.CNP [address] [place] [address] Us Imaging Referral ID Status Reason Start Date Expiration Date Visits Requested Visits Authorized [id number] Pending Review Auto-Generat ed Referral 05/20/2023 1 1 [facility] for referral (narrative)* Diagnostic Procedure Only (Routine) - Closed Specialty Diagnoses / Procedures Referred By Bill moody Referred To Contact US IMAGING Diagnoses Thyroid nodule Procedures US THYROID/PARATHYROID US SOFT TISSUE HEAD & NECK REAL TIME IMGE Ana Trujillo APRN.CNP [address] [place] [address] Us Imaging [id number] Referral ID Status Reason Start Date Expiration Date V isits Requested Visits Authorized [id number] Closed Auto-Generate d Referral 04/20/2022 05/20/2023 1 1 [facility] for visit Narrative* Diagnostic Procedure Only (Routine) - Closed Specialty Diagnoses / Procedures Referred By Bill t Referred To Contact US IMAGING Diagnoses Thyroid nodule Procedures US THYROID/PARATHYROID US SOFT TISSUE HEAD & NECK REAL TIME IMGE Ana Trujillo APRN.CNP [address] [facility] [place] [place] [address] [facility] [address] Referral ID Status Reason Start Date Expiration Date V isits Requested Visits Authorized [id number] Closed Auto-Generate d Referral 04/20/2022 05/20/2023 1 1 [facility] Advance Directives Documents on File Type Date Recorded Patient Optometric Assistant Expl anation Advance Directive(s) 10/15/2021 7:37 PM Summary Purpose Family History No Family History Records FoundNo Family History Records Found Additional Source Comments Source Comments (unrecognize d section and content) In the event this informatio n is protected by the Federal Confidentiality of Alcohol and Drug Abuse Patient Records regulations: The Federal rules restrict any use of the information to criminally investigate or prosecute any alcohol or drug abuse patient.[facility] event this information is protected by the Federal Confidentiality of Alcohol and Drug Abuse Patient Records regulations: The Federal rules restrict any use of the information to criminally investigate or prosecute any alcohol or drug abuse patient.[facility] the event this information is protected by the Federal Confidentiality of Alcohol and Drug Abuse Patient Records regulations: The Federal rules restrict any use of the information to criminally investigate or prosecute any alcohol or drug abuse patient.[facility] the event this information is protected by the Federal Confidentiality of Alcohol and Drug Abuse Patient Records regulations: The Federal rules restrict any use of the information to criminally investigate or prosecute any alcohol or drug abuse patient.[facility] the event this information is protected by the Federal Confidentiality of Alcohol and Drug Abuse Patient Records regulations: The Federal rules restrict any use of the information to criminally investigate or prosecute any alcohol or drug abuse patient.[facility] the event this information is protected by the Federal Confidentiality of Alcohol and Drug Abuse Patient Records regulations: The Federal rules restrict any use of the information to criminally investigate or prosecute any alcohol or drug abuse patient.[facility] the event this information is protected by the Federal Confidentiality of Alcohol and Drug Abuse Patient Records regulations: The Federal rules restrict any use of the information to criminally investigate or prosecute any alcohol or drug abuse patient.[facility] Reason for Visit (unrecogniz ed section and content) Reason Comments Wound Check Sutures removed from above left eyebrow - Seen in [facility] 10/21/21 Reason Comments New Fracture Reason Comments Fall Fell in the doorway of her home and hit her head on the door; approx 6:30 this evening Reason Comments Fall Fell at home 022 Reason Comments Establish Care Go over ultrasound r esults INFORMATION SOURCE (unrecogn ized section and content) DATE CREATED AUTHOR AUTHOR'S ORGANIZ ATION 05/20/2022 [facility] FOR RECORDS PERTAINING TO PATIENTS WHO ARE OR HAVE BEEN ENROLLED IN A CHEMICAL DEPENDENCY/SUBSTANCEABUSE PROGRAM, SOME INFORMATION MAY BE OMITTED. This clinical summary was aggregated from multiple sources. Caution should be exercised in using it in the provision of clinical care. This summary normalizes information from multiple sources, and as a consequence, information in this document may materially change the coding, format and clinical context of patient data. In addition, data may be omitted in some cases. CLINICAL DECISIONS SHOULD BE BASED ON THE PRIMARY CLINICAL RECORDS. [employer] provides no warranty or guarantee of the accuracy or completeness of information in this document.
--- NOTE | 2023-08-12 15:40 | RAD_ITS ---
STUDY: XR Shoulder Min 2 Views REASON FOR EXAM: Female, 87 years old. pain TECHNIQUE: XR Shoulder 4 Views LEFT COMPARISON: None. FINDINGS: There is moderate degenerative arthrosis of the glenohumeral articulation. Normal acromioclavicular joint. Normal acromion. Normal humeral head and visualized proximal humerus. The soft tissue structures are unremarkable. Normal visualized pulmonary apex. RAD/Shoulder min 2 Views IMPRESSION: There are no acute findings of the shoulder. Electronically Signed: Theodore Meléndez MD at 16:08 EST ,
== END 2023-08-12 16:43 | disposition home or self-care (01) ==
PROVIDERS: Emergency Provider Emergency Medicine; Visit Provider Emergency Medicine
DX: S05.12XA Contusion of eyeball and orbital tissues, left eye, initial encounter (principal); S06.9X0A Unspecified intracranial injury without loss of consciousness, initial encounter; S49.92XA Unspecified injury of left shoulder and upper arm, initial encounter; Y92.512 Supermarket, store or market as the place of occurrence of the external cause; Z79.82 Long term (current) use of aspirin; W00.0XXA Fall on same level due to ice and snow, initial encounter
CPT/HCPCS: 70450; 70486; 72125; 73030; 73060; 99282

== ENCOUNTER 2023-12-07 13:57 | Inpatient (IN) | payer MEDICARE, SELFPAY ==
[2023-12-07 13:58] VITALS: BP 127/81; PULSE 116; RESP 18; TEMP 36.9; O2SAT 96; BMI 22.6
--- NOTE | 2023-12-07 14:24 | EKG12_ITS ---
Test Reason : FALL Blood Pressure : / mmHG Vent. Rate : 101 BPM Atrial Rate : 101 BPM P-R Int : 124 ms QRS Dur : 112 ms QT Int : 358 ms P-R-T Axes : 073 003 107 degrees QTc Int : 464 ms Sinus tachycardia with Premature atrial complexes Incomplete left bundle branch block Left ventricular hypertrophy with repolarization abnormality ( Sokolow-Amaya , [place] product , Romhi lt-Shepard ) Abnormal ECG Confirmed by MARIO VELAZQUEZ, DAISY ([id number]), newspaper or periodical editor JOANNE HOLDER ([id number]) on 12/10/2023 9:44:05 AM Referred By: Confirmed By:ROSY MARTIN MD
--- NOTE | 2023-12-07 14:30 | NURSING ---
NO OLD EKGS
[2023-12-07 14:39] LABS: Absolute Lymphocyte Count 0.97 X10^3/uL (0.83-4.51); Absolute Neutrophil Count 15.6 X10^3/uL (2.0-7.7); Basophil# 0.04 X10^3/uL; Basophil% 0.2 % (0-1); Eosinophils% 0.6 % (0-5); Hematocrit 38.7 % (37-47); Lymphocyte # 0.97 X10^3/ul (0.83-4.51); Lymphocyte % 5.5 % (19-41); Mean Corp Hgb Conc 33.6 g/dL (32-36); Mean Corpuscular Hgb 30.7 pg (27.0-32.0); Mean Corpuscular Volume 91.5 fL (81-99); Mean Platelet Vol. 10.5 fl (6.2-12.0); Monocyte# 0.79 X10^3/uL; Monocyte% 4.5 % (0-10); NRBC Flagged by Analyzer 0 % (0-5); Neutrophil # 15.55 X10^3/uL (2.7-7.7); Neutrophil % 88.6 % (47-70); Platelet Count 164 K/mm3 (150-450); RBC Distribution Width CV 13.4 % (11.6-14.6); RBC Distribution Width SD 45.1 fl (35.1-43.9); Red Blood Count 4.23 M/mm3 (4.2-5.4); White Blood Count 17.6 K/mm3 (4.4-11.0)
--- NOTE | 2023-12-07 14:40 | RAD_ITS ---
STUDY: X-RAY - PELVIS REASON FOR EXAM: Female, 88 years old. Trauma TECHNIQUE: One view of the pelvis was obtained. COMPARISON: None. FINDINGS: There is a non-specific bowel gas pattern. Soft tissue swelling. There is narrowing with cortical sclerosis and osteophyte formation of the sacroiliac joint consistent with degenerative osteoarthritic changes. Normal visualized bilateral superior and inferior pubic rami. There is narrowing with sclerosis of the pubic symphysis. Normal ischial tuberosities. Comminuted displaced fracture of the intertrochanteric region of the proximal right femur with cephalic migration of the distal fracture fragment. RAD/Pelvis 1 or 2 Views IMPRESSION: Comminuted displaced fracture of the intertrochanter region of proximal right femur with cephalic migration of the distal fracture fragment. Electronically Signed: Errol Castro MD at 15:10 EDT ,
--- NOTE | 2023-12-07 14:40 | RAD_ITS ---
STUDY: X-RAY - RIGHT FEMUR REASON FOR STUDY: Female, 88 years old. Trauma TECHNIQUE: 4 view(s) of the femur. COMPARISON: None. FINDINGS: Comminuted displaced fracture of the intertrochanteric region of the right femur with cephalic migration of the distal fracture fragment. Soft tissue swelling. RAD/Femur Min 2 Views IMPRESSION: Comminuted displaced fracture of the intertrochanteric region of the right femur with cephalic migration of the distal fracture fragment. Soft tissue swelling. Electronically Signed: Errol Castro MD at 15:11 EDT ,
--- NOTE | 2023-12-07 14:40 | RAD_ITS ---
STUDY: X-RAY - LEFT KNEE REASON FOR EXAM: Female, 88 years old. Trauma TECHNIQUE: 4 view(s) of the knee. COMPARISON: None. FINDINGS: There is demineralization of the visualized distal femur. There is demineralization of the tibia and fibula. Normal proximal tibiofibular articulation. Normal medial femorotibial compartment. Normal lateral femorotibial compartment. Normal patellofemoral articulation. The soft tissue structures are unremarkable. RAD/Knee 4 or More Views IMPRESSION: Demineralization of the visualized femur and tibia. No fracture is seen. Electronically Signed: Errol Castro MD at 15:10 EDT ,
--- NOTE | 2023-12-07 14:40 | RAD_ITS ---
STUDY: X-RAY CHEST REASON FOR EXAM: Female, 88 years old. Injury TECHNIQUE: Single AP portable view of the chest. COMPARISON: None. FINDINGS: EKG electrodes are seen. There is elevation of the left hemidiaphragm with mild increased markings at the lung bases slightly worse on the left side suggestive of scarring. Hyperinflation of the right lung. There is no demonstrated pleural abnormality. Normal size heart. Normal mediastinum and amber. Normal visualized pulmonary arteries. There is atherosclerotic calcification of the aortic arch with tortuosity. There are degenerative changes of the visualized thoracic spine. Normal visualized ribs, clavicles, and shoulders. There is no demonstrated abnormality of the visualized soft tissue structures of the upper abdomen. RAD/Chest 1 View (Portable) IMPRESSION: Elevation of the left hemidiaphragm. Hyperexpansion of the right lung. Mild scarring at the lung bases slightly more prominent on the left side. Electronically Signed: Errol Castro MD at 15:12 EDT ,
[2023-12-07 14:49] LABS: International Normalized Ratio 1.3; Prothrombin Time (Protime)PT. 16.1 SECONDS (11.7-14.9)
[2023-12-07 14:50] LABS: Partial Thromboplast Time 47.4 Seconds (24.1-36.2)
[2023-12-07 14:56] LABS: AST(SGOT) 28 U/L (15-37); Alanine Aminotransfer ALT/SGPT 19 U/L (13-56); Albumin, Serum 3.3 g/dL (3.2-5.0); Alkaline Phosphatase 75 U/L (45-117); Anion Gap 10 (5-15); BUN 15 mg/dL (7-18); BUN/Creat Ratio 15.4 RATIO (10-20); Bilirubin, Direct 0.39 mg/dL (0.00-0.30); Chloride 105 mmol/L (98-107); Creatinine, Serum 0.97 mg/dL (0.55-1.02); EST Glomerular Filtration Rate 58 mL/min (>60); Est Glom Filt Rate - Afr Amer 70 mL/min (>60); Estimated Creatinine Clearance 29.35 ml/min; Globulin 2.9 g/dL (2.2-4.2); Glucose 185 mg/dL (74-106); Lipase 20 U/L (13-75); Potassium 4.2 mmol/L (3.5-5.1); Protein, Total 6.2 g/dL (6.4-8.2); Sodium Level 140 mmol/L (136-145)
[2023-12-07 14:57] LABS: CPK Total, Creatine Kinase 259 U/L (26-192)
--- NOTE | 2023-12-07 15:09 | EDS_ITS ---
HPI History of Present Illness Chief Complaint: Fall Informant: patient and EMS Narrative Narrative: 88-year-old female states she was washing her hands of some grease when she felt thirsty so she reached for a cup of coffee and fell. She states she landed on her knees causing injury to the left knee and the right thigh. She states that she had difficulty getting up and was unable to call for help. Eventually her neighbor knocked on the door and the neighbor was able to gain access into the house because the garage door was up from a maintenance services dispatcher dropping some items off for her son. EMS was then called. Patient denies any head neck or back pain or injury. She denies any chest or abdominal pain. She tells me that the only thing she takes medication martini is a baby aspirin a day because a friend told her that it was good for her heart. She states that she is not follow-up with an orthopedic surgeon. She denies any prior orthopedic surgery. PFSH PFS Home Medications ?Medication ?Instructions ?Recorded ?Last Taken ?Type aspirin 81 mg tablet,delayed 81 mg PO DAILY 08/12/23 12/07/23 History release (Adult Aspirin Regimen) Allergy/AdvReac Type Severity Reaction Status Date / Time No Known Allergies Allergy Verified 12/07/23 14:01 Surgical History Hx of cholecystectomy Social History Smoking Status: Never smoker ROS ROS ED Constitutional Constitutional ED: Denies chills, fever(s) or weight loss Eyes Eyes: Denies change in vision or diplopia ENT ENT ED: Denies ear pain, rhinorrhea or sore throat Cardiovascular Cardiovascular: Denies chest pain, orthopnea, palpitations or racing heartbeat Respiratory/Chest Respiratory/Chest: Denies cough, dyspnea or orthopnea Gastrointestinal Gastrointestinal: Denies abdominal pain, diarrhea, nausea or vomiting Genitourinary Genitourinary ED: Denies dysuria, hematuria or urinary frequency Musculoskeletal Musculoskeletal: Reports other Details: See history of present illness ; Denies arthralgias, back pain, myalgias or neck pain Integumentary Denies abscess or rash Neurologic Neurologic: Denies headache(s), paresthesias or weakness Psychiatric Psychiatric: Denies anxiety, depression, suicidal ideation or suicidal thoughts Endocrine Endocrinology: Denies polydipsia, polyphagia or polyuria Allergic/Immunologic Allergic/Immunologic ED: Denies mouth swelling, tongue swelling or urticaria EXAM Physical Exam Const Vital Signs: 12/07/23 13:58 12/07/23 14:19 Temperature 98.4 F Temperature Source Oral Pulse Rate 116 H Respiratory Rate 18 Respiratory Effort Normal Respiratory Depth Normal Respiratory Pattern Normal Blood Pressure 127/81 H Blood Pressure Mean 96 Pulse Ox 96 Oxygen Delivery Method Room Air Room Air Positive well nourished and well developed General Appearance ED: well developed HEENT Reports normocephalic, head/scalp atraumatic and moist mucous membranes Eyes PERRL and EOMs intact bilaterally Neck full ROM, no lymphadenopathy, supple and no JVD General: Negative for tenderness Chest Wall inspection of chest normal and palpation of chest normal Resp normal respiratory effort and clear to auscultation bilaterally Cardio regular rate, regular rhythm and no murmurs Rate: tachycardic GI normal to inspection, nondistended, normoactive bowel sounds and non-tender Palpation: soft Back/Spine no CVA tenderness and normal ROM Back/Spine Narrative: Patient denies any pain upon palpation of her spine Extremity Extremity Narrative: The right leg is shortened and externally rotated. She has tenderness over the proximal femur and over the greater trochanter region with early hematoma/ecchymosis formation. There is a dorsalis pedis pulse. She is wiggling her toes. The toes appear normal color and are warm General Extremety ED: Negative for edema General Extremity: Negative for edema Neuro oriented x3 and CN's II-XII intact bilaterally Luca Coma Scale: document GCS findings Spontaneous Obeys Commands Oriented 15 Sensorium / Orientation: alert Motor Exam: strength 5/5 throughout Psych mental status grossly normal Mood & Affect: Negative for depressed or tearful Skin no rashes or lesions noted and no wounds MDM MDM MDM Narrative Medical decision making narrative: Differential diagnosis includes contusion fracture sprain strain traumatic bursitis My independent or potation of the chest x-ray is chronic elevation of the left diaphragm. My independent interpretation of the plain films of the left knee is no acute fracture. May depend interpretation of the plain films of the right femur and pelvis is an acute comminuted displaced fracture in the intertrochanteric region. White count returns at 17.6 with a hemoglobin of 13 platelet count of 164. INR 1.3 with PTT of 47.4. Glucose 185 CK2 59 total hortensia irubin 1.2 direct bilirubin 0.39. Lipase of 20. Patient will receive IV fluids pain medicine as needed. I spoke with Dr. Soni from orthopedics and the hospitalist will be admitting. History & Record Review Discussion w/independent historian: EMS personnel and Patient Lab Data Attestation: I reviewed the patient's lab results. Labs: Laboratory Results - last 24 hr 12/07/23 14:05 WBC 17.6 H RBC 4.23 Hgb 13.0 Hct 38.7 MCV 91.5 MCH 30.7 MCHC 33.6 RDW Std Deviation 45.1 H RDW Coeff of Junior 13.4 Plt Count 164 MPV 10.5 Immature Gran % (Auto) 0.600 Neut % (Auto) 88.6 H Lymph % (Auto) 5.5 L [place] % (Auto) 4.5 Eos % (Auto) 0.6 Baso % (Auto) 0.2 Absolute Neuts (auto) 15.6 H Absolute Lymphs (auto) 0.97 Nucleated RBC % 0 PT 16.1 H INR 1.3 APTT 47.4 H Sodium 140 Potassium 4.2 Chloride 105 Carbon Dioxide 25.0 Anion Gap 10 BUN 15 Creatinine 0.97 Estim Creat Clear Calc 29.35 Est GFR (MDRD) Af Amer 70 Est GFR (MDRD) Non-Af 58 L BUN/Creatinine Ratio 15.4 Glucose 185 H Calcium 9.0 Total Bilirubin 1.20 H Direct Bilirubin 0.39 H AST 28 ALT 19 Alkaline Phosphatase 75 Total Creatine Kinase 259 H Total Protein 6.2 L Albumin 3.3 Globulin 2.9 Lipase 20 Radiography Diagnostic Testing: Clinical Impression(s) from Imaging Studies Chest X-Ray 12/07/23 14:40 IMPRESSION: Elevation of the left hemidiaphragm. Hyperexpansion of the right lung. Mild scarring at the lung bases slightly more prominent on the left side. Electronically Signed: Errol Castro MD at 15:12 EDT , Femur X-Ray 12/07/23 14:40 IMPRESSION: Comminuted displaced fracture of the intertrochanteric region of the right femur with cephalic migration of the distal fracture fragment. Soft tissue swelling. Electronically Signed: Errol Castro MD at 15:11 EDT , Knee X-Ray 12/07/23 14:40 IMPRESSION: Demineralization of the visualized femur and tibia. No fracture is seen. Electronically Signed: Errol Castro MD at 15:10 EDT , Pelvis X-Ray 12/07/23 14:40 IMPRESSION: Comminuted displaced fracture of the intertrochanter region of proximal right femur with cephalic migration of the distal fracture fragment. Electronically Signed: Errol Castro MD at 15:10 EDT , EKG Initial EKG: Attestation: I personally reviewed and interpreted this EKG as follows: Interpretation: Sinus Rhythm Comments: Sinus tachycardia with left bundle branch block. LVH by voltage. Management Discussion w/another healthcare provider: Hospitalist (Dr. Nava) and Filtrose Crusher (Dr. Soni (Orthopedics)) Discharge Plan Dx/Rx/DC Orders Clinical Impression: Fall, Contusion of knee, Closed intertrochanteric fracture of femur Disposition Disposition: Acute Care Hospital [facility]
--- NOTE | 2023-12-07 15:12 | PCM.HP.STD ---
HPI - General General Date of Admission: 12/07/23 Date of Service: 12/07/23 Chief Complaint: Acute fall HPI Narrative YEIMY PANIAGUA, is a 88 F with past medical history of hypertension, who presents to the ED following an acute fall at home when she slid off from her chair while trying to get a mug of coffee. There is no associated features of syncopal episode, blackout, palpitations at the time. She is not on any blood thinners, overall is feeling well. At the time of presentation in the ED, BP 125/80, temperature 97.6, respiratory 23.7, WBC 17.6, hemoglobin 13.0, platelet count 164, INR 16.1, APTT 47.4, sodium 140, potassium 4.2, BUN 15, creatinine 0.9, CK2 59, albumin 3.3, pelvis x-ray showed comminuted displaced fracture of the intertrochanteric region of the proximal right femur with cephalic migration of the distal fracture fragment. She was evaluated by orthopedic surgery in the ED and she is planned for surgical fixation tomorrow. [facility] Medical History (Updated 12/07/23 @ 16:45 by Madeleine Duran) Non-smoker Irregular heart beat Home Medications ?Medication ?Instructions ?Recorded ?Last Taken ?Type aspirin 81 mg tablet,delayed 81 mg PO DAILY 08/12/23 Unknown History release (Adult Aspirin Regimen) Allergy/AdvReac Type Severity Reaction Status Date / Time No Known Allergies Allergy Verified 12/07/23 14:01 Surgical History Hx of cholecystectomy Social History Smoking Status: Never smoker ROS Review of Systems ROS Unobtainable: Denies due to encephalopathy, due to endotracheal tube, due to mental condition, due to mental status or other Constitutional Constitutional: Denies anorexia, change in weight, chills, fatigue, fever(s), malaise, night sweats, weakness or other Eyes Eyes: Denies blurry vision, change in eye color, change in vision, discharge from eye(s), double vision, erythema, eye pain, loss of vision or other ENT HEENT: Denies abnormal hearing, dysphagia, ear pain, epistaxis, headache(s), hearing loss, nasal congestion, nasal discharge, post nasal drip, sinus pressure, sore throat or other Cardiovascular Cardiovascular: Denies chest pain, claudication, dyspnea on exertion, edema, lightheadedness, orthopnea, palpitations, paroxysmal nocturnal dyspnea, rapid heart rate, syncope or other Respiratory/Chest Respiratory/Chest: Denies cough, dyspnea, excessive phlegm production, hemoptysis, productive cough, shortness of breath at rest, shortness of breath with exertion, wheezing or other Gastrointestinal Gastrointestinal: Denies abdominal pain, coffee ground emesis, constipation, diarrhea, dyspepsia, hematemesis, hematochezia, loose stools, melena, nausea, vomiting or other Genitourinary Genitourinary: Denies burning urination, difficulty urinating, dysuria, hematuria, nocturia, urinary frequency, urinary hesitancy, urinary incontinence, urinary urgency or other Musculoskeletal Musculoskeletal: Denies arthralgias, back pain, joint pain, joint stiffness, joint swelling, myalgias, neck pain or other Neurologic Neurologic: Denies abnormal gait, abnormal speech, confusion, disequilibrium, dizziness, focal weakness, headache(s), numbness, paresthesias, seizure-like activity, seizures, syncope, tingling, tremor(s) or other Psychiatric Psychiatric: Denies anxiety, depression, homicidal ideation, suicidal ideation or other Endocrine Endocrinology: Denies change in body appearance, cold intolerance, excessive sweating, heat intolerance, polydipsia, polyuria or other Hematologic/Lymphatic Hematologic/Lymphatic: Denies anemia, easy bleeding, easy bruising, lymphadenopathy or other Vital Signs Vital Signs Vital Signs: 12/07/23 13:58 12/07/23 14:19 Temperature 98.4 F Temperature Source Oral Pulse Rate 116 H Respiratory Rate 18 Respiratory Effort Normal Respiratory Depth Normal Respiratory Pattern Normal Blood Pressure 127/81 H Blood Pressure Mean 96 Pulse Ox 96 Oxygen Delivery Method Room Air Room Air Weight Weight: 116 lb 2.938 oz Body Mass Index (BMI) 22.6 Physical Exam Const alert, oriented x3 and average body habitus HEENT normocephalic and head/scalp atraumatic Eyes PERRL Neck no lymphadenopathy Resp normal respiratory effort Cardio regular rate and regular rhythm Cardio Narrative: Ejection systolic murmur GI normal to inspection, nondistended, normoactive bowel sounds Extremity Extremity Narrative: Pain tenderness over her right hip, exacerbated by movement Neuro oriented x3 Psych affect normal Results Medical Records Data Attestation: I reviewed the patient's medical records Lab / Micro Data Attestation: I reviewed the patient's lab results. 12/07/23 14:05 12/07/23 14:05 Labs: Laboratory Results - last 24 hr 12/07/23 14:05: WBC 17.6 H, RBC 4.23, Hgb 13.0, Hct 38.7, MCV 91.5, MCH 30.7, MCHC 33.6, RDW Std Deviation 45.1 H, RDW Coeff of Junior 13.4, Plt Count 164, MPV 10.5, Immature Gran % (Auto) 0.600, Neut % (Auto) 88.6 H, Lymph % (Auto) 5.5 L, [place] % (Auto) 4.5, Eos % (Auto) 0.6, Baso % (Auto) 0.2, Absolute Neuts (auto) 15.6 H, Absolute Lymphs (auto) 0.97, Nucleated RBC % 0, PT 16.1 H, INR 1.3, APTT 47.4 H, Sodium 140, Potassium 4.2, Chloride 105, Carbon Dioxide 25.0, Anion Gap 10, BUN 15, Creatinine 0.97, Estim Creat Clear Calc 29.35, Est GFR (MDRD) Af Amer 70, Est GFR (MDRD) Non-Af 58 L, BUN/Creatinine Ratio 15.4, Glucose 185 H, Calcium 9.0, Total Bilirubin 1.20 H, Direct Bilirubin 0.39 H, AST 28, ALT 19, Alkaline Phosphatase 75, Total Creatine Kinase 259 H, Total Protein 6.2 L, Albumin 3.3, Globulin 2.9, Lipase 20 Imaging Radiology Impression Knee X-Ray 12/07/23 14:40 IMPRESSION: Demineralization of the visualized femur and tibia. No fracture is seen. Electronically Signed: Errol Castro MD at 15:10 EDT , Pelvis X-Ray 12/07/23 14:40 IMPRESSION: Comminuted displaced fracture of the intertrochanter region of proximal right femur with cephalic migration of the distal fracture fragment. Electronically Signed: Errol Castro MD at 15:10 EDT , Assessment & Plan Assessment/Plan (1) Closed intertrochanteric fracture of femur: PLAN: Plan 88-year-old female with no significant past medical history is presents to the ED with concerns regarding a fall and right hip fracture. Given her history though no concerns regarding any A-fib, seizure, other concerns for fall. #Intertrochanteric fracture of femur: -Evaluated by orthopedic surgery in the ED plan for surgery tomorrow -[place] pain control, pain is minimal at this time, use opioids as needed -PT/OT evaluation after the surgery for placement next-case management evaluation after surgery for discharge planning #DVT prophylaxis: High risk given the hip fracture -Started on heparin 5000 units p.o. every 12 hours #Primary prophylaxis of cardiovascular disease: On aspirin for the same, -Hold aspirin given the plan for surgery tomorrow and no prior history of coronary artery disease Charges/Coding Visit Charges Inpatient E&M: 28983 Init Hosp L1
[2023-12-07 15:27] VITALS: BP 125/80; PULSE 100; RESP 23; TEMP 36.4; O2SAT 98
[2023-12-07 15:31] LABS: Color, Urine Yellow (Yellow); Glucose, Dipstick Normal (Normal); Ketone-Dipstick 15 mg/dl (Negative); Leukocyte Esterase-Dipstick 500 /ul (Negative); Nitrite-Dipstick Negative (Negative); Occult Blood-Urine 25 /ul (Negative); Protein-Dipstick 100 mg/dl (Negative); Urine Clarity Sl. Cloudy (Clear); Urine Urobilinogen 4 mg/dl (Normal)
[2023-12-07 15:35] LABS: Urine Bilirubin Dipstick 1 mg/dL (Negative)
[2023-12-07] MEDS: 0.9% Normal Saline (1000mL) 1,000 ML 999 ML IV (15:35)
[2023-12-07 15:36] LABS: White Blood Cells 5-10 SEEN /hpf (0-5)
[2023-12-07 15:37] LABS: Bacteria 1+ /hpf (None Seen); Calcium Oxalate Crystals Ur 1+ /hpf (<or=2+); Mucous, Urine 1+ /hpf (<or=2+)
[2023-12-07 15:38] LABS: Red Blood Cells-Urine 0-5 SEEN /hpf (0-5); Squamous Epithelial Cells - UA 0-5 SEEN /hpf (5-10)
--- NOTE | 2023-12-07 15:40 | NURSING ---
MED SURG HIP FX [facility]
--- NOTE | 2023-12-07 15:49 | CON.PCM.OR_ITS ---
HPI Consult Data Date of Consult: 12/07/23 HPI Narrative HPI Narrative: YEIMY PANIAGUA, is a 88 F who presents with a right hip fracture intertrochanteric. Patient had a ground-level fall. No head injury or loss of consciousness or chest pain. Patient normally ambulates with a cane. They live at home with the assistance of her son Prakash who is here today at the bedside. No prior antecedent hip pain. The patient fell onto a hardwood floor. They were down for a couple hours. Takes only 1 aspirin a day. [facility] Home Medications ?Medication ?Instructions ?Recorded ?Last Taken ?Type aspirin 81 mg tablet,delayed 81 mg PO DAILY 08/12/23 12/07/23 History release (Adult Aspirin Regimen) Allergy/AdvReac Type Severity Reaction Status Date / Time No Known Allergies Allergy Verified 12/07/23 14:01 Surgical History Hx of cholecystectomy Social History Smoking Status: Never smoker Vital Signs Vital Signs Vital Signs: 12/07/23 13:58 12/07/23 14:19 12/07/23 15:27 Temperature 98.4 F 97.6 F L Temperature Source Oral Pulse Rate 116 H 100 Respiratory Rate 18 23 H Respiratory Effort Normal Respiratory Depth Normal Respiratory Pattern Normal Blood Pressure 127/81 H 125/80 H Blood Pressure Mean 96 95 Pulse Ox 96 98 Oxygen Delivery Method Room Air Room Air Weight Weight: 116 lb 2.938 oz Body Mass Index (BMI) 22.6 Physical Exam Const alert and oriented x3 Constitutional Narrative: Patient able to answer all questions and follow along appropriately and making medical decisions. General Appearance: cooperative HEENT normocephalic Extremity normal capillary refill Extremity Narrative: Closed injury shortened and externally rotated right lower extremity. No pain at the knee or ankle. The foot is warm well-perfused good dorsalis pedis pulse. Normal sensation and motor function to the foot to the superficial and deep peroneal nerves as well as saphenous sural and tibial. Lab / Micro Data 12/07/23 14:05 12/07/23 14:05 Labs: Laboratory Results - last 24 hr 12/07/23 14:05: WBC 17.6 H, RBC 4.23, Hgb 13.0, Hct 38.7, MCV 91.5, MCH 30.7, MCHC 33.6, RDW Std Deviation 45.1 H, RDW Coeff of Junior 13.4, Plt Count 164, MPV 10.5, Immature Gran % (Auto) 0.600, Neut % (Auto) 88.6 H, Lymph % (Auto) 5.5 L, [place] % (Auto) 4.5, Eos % (Auto) 0.6, Baso % (Auto) 0.2, Absolute Neuts (auto) 15.6 H, Absolute Lymphs (auto) 0.97, Nucleated RBC % 0, PT 16.1 H, INR 1.3, APTT 47.4 H, Sodium 140, Potassium 4.2, Chloride 105, Carbon Dioxide 25.0, Anion Gap 10, BUN 15, Creatinine 0.97, Estim Creat Clear Calc 29.35, Est GFR (MDRD) Af Amer 70, Est GFR (MDRD) Non-Af 58 L, BUN/Creatinine Ratio 15.4, Glucose 185 H, Calcium 9.0, Total Bilirubin 1.20 H, Direct Bilirubin 0.39 H, AST 28, ALT 19, Alkaline Phosphatase 75, Total Creatine Kinase 259 H, Total Protein 6.2 L, Albumin 3.3, Globulin 2.9, Lipase 20 12/07/23 15:20: Urine Color Yellow, Urine Clarity Sl. Cloudy, Urine pH 5.0, Ur Specific [place] 1.020, Urine Protein 100 H, Urine Glucose (UA) Normal, Urine Ketones 15 H, Urine Occult Blood 25 H, Urine Nitrite Negative, Urine Bilirubin 1 H, Urine Urobilinogen 4 H, Ur Leukocyte Esterase 500 H, Urine RBC 0-5 SEEN, Urine WBC 5-10 SEEN, Ur Squamous Epith Cells 0-5 SEEN, Calcium Oxalate Crystal 1+, Urine Bacteria 1+, Urine Mucus 1+ Imaging Radiology Impression Chest X-Ray 12/07/23 14:40 IMPRESSION: Elevation of the left hemidiaphragm. Hyperexpansion of the right lung. Mild scarring at the lung bases slightly more prominent on the left side. Electronically Signed: Errol Castro MD at 15:12 EDT , Femur X-Ray 12/07/23 14:40 IMPRESSION: Comminuted displaced fracture of the intertrochanteric region of the right femur with cephalic migration of the distal fracture fragment. Soft tissue swelling. Electronically Signed: Errol Castro MD at 15:11 EDT , Agree at least 3 part intertrochanteric hip fracture on the right side with moderate comminution and shortening Knee X-Ray 12/07/23 14:40 IMPRESSION: Demineralization of the visualized femur and tibia. No fracture is seen. Electronically Signed: Errol Castro MD at 15:10 EDT , Pelvis X-Ray 12/07/23 14:40 IMPRESSION: Comminuted displaced fracture of the intertrochanter region of proximal right femur with cephalic migration of the distal fracture fragment. Electronically Signed: Errol Castro MD at 15:10 EDT , Assessment & Plan Assessment/Plan (1) Closed intertrochanteric fracture of femur: PLAN: 88-year-old female with comminuted three-part intertrochanteric hip fracture on the right side. Patient as well as the son Prakash was explained the diagnosis prognosis different treatment options which include but not limited to doing nothing bedrest high risk of complications like VTE and pneumonia. That being said surgery does have its own set of unique risks. Generally in all but the medically very unwell this is indicated for surgery. For intertrochanteric hip fractures this typically indicated for cephalomedullary nail. Discussed the pros and cons risks and benefits of this with moderate comminution potentially high risk of delayed or malunion associated with this as well as a prolonged recovery in this overall thin 88-year-old female. The patient understood wishes to proceed with right hip open reduction internal fixation signed the consent form for that as well as possible need for blood products. I marked the right hip patient is bedrest for now the hospitalist is actively seeing the patient pending admission to the hospitalist service. The patient ate recently and so we will delay the surgery for this evening and we will try to get this done tomorrow. The patient will be TEJINDER for now and n.p.o. at midnight trying to get this case done on Sunday the next day as soon as possible. This will most likely be around 11 AM as I did talk to the nursing staff and Dr. Quezada. Patient understands no further questions or concerns and we will proceed with the surgery I also answered a number of questions from her son Prakash. Pros and cons risks and benefits were discussed with the patient including but not limited to infection, pain, stiffness, bleeding, damage to surrounding structures, neurovascular injury, recurrence or retear, failure or wear of hardware or fixation, instability, fracture, deep vein thrombosis and pulmonary embolism, anesthetic risks, , patient dissatisfaction, need for further surgery and other risks. Patient understood and wished to proceed with surgery, and signed the informed consent documentation.
[2023-12-07 16:39] VITALS: BMI 20.7
[2023-12-07 16:46] VITALS: BP 117/66; PULSE 52; RESP 20; TEMP 36.3; O2SAT 100
[2023-12-07] MEDS: 0.9% Normal Saline (1000mL) 1,000 ML 150 ML IV ×2 (16:49→23:16)
[2023-12-07] MEDS: Morphine 4 MG/ML Syringe IV ×2 (17:40→23:26)
[2023-12-07] MEDS: 0.9% Saline Lock 10 ML Syringe IV ×2 (17:40→18:24)
[2023-12-07] MEDS: Ondansetron 4 MG/2 ML Vial IV ×2 (18:24→23:27)
[2023-12-07 20:10] VITALS: BP 123/70; PULSE 57; RESP 18; TEMP 36.4; O2SAT 98
[2023-12-07] MEDS: Heparin Injection (Vial) 5,000 UNIT/ML VIAL 5000 UNIT SC (20:22)
[2023-12-08] VITALS (15 sets, daily range): BP systolic 91–130; BP diastolic 56–67; PULSE 72–98; RESP 15–18; TEMP 36.2–36.9; O2SAT 94–100; BMI 20.7
[2023-12-08 04:48] LABS: Absolute Neutrophil Count 6.7 X10^3/uL (2.0-7.7); Basophil# 0.01 X10^3/uL; Basophil% 0.1 % (0-1); Hematocrit 30.1 % (37-47); Hemoglobin 9.8 g/dL (12.0-15.0); Lymphocyte % 9.9 % (19-41); Mean Corp Hgb Conc 32.6 g/dL (32-36); Mean Corpuscular Hgb 31.1 pg (27.0-32.0); Mean Corpuscular Volume 95.6 fL (81-99); Mean Platelet Vol. 10.9 fl (6.2-12.0); Monocyte# 0.59 X10^3/uL; Monocyte% 7.3 % (0-10); NRBC Flagged by Analyzer 0 % (0-5); Neutrophil # 6.65 X10^3/uL (2.7-7.7); Neutrophil % 82.3 % (47-70); Platelet Count 126 K/mm3 (150-450); RBC Distribution Width CV 13.8 % (11.6-14.6); Red Blood Count 3.15 M/mm3 (4.2-5.4); White Blood Count 8.1 K/mm3 (4.4-11.0)
--- NOTE | 2023-12-08 05:00 | EKG12_ITS ---
Test Reason : AM EKG Blood Pressure : / mmHG Vent. Rate : 100 BPM Atrial Rate : 100 BPM P-R Int : 112 ms QRS Dur : 110 ms QT Int : 382 ms P-R-T Axes : 046 -06 117 degrees QTc Int : 492 ms Normal sinus rhythm ST & T wave abnormality, consider lateral ischemia Prolonged QT Abnormal ECG When compared with ECG of 07-DEC-2023 14:56, MANUAL COMPARISON REQUIRED, DATA IS UNCONFIRMED Confirmed by EVI VELAZQUEZ, CAROLS ([id number]), sound editor JOANNE HOLDER ([id number]) on 12/11/2023 11:04:06 AM Referred By: DAPHNEY Confirmed By:CARLOS STEVE MD
[2023-12-08 05:12] LABS: Anion Gap 8 (5-15); BUN 20 mg/dL (7-18); BUN/Creat Ratio 22.2 RATIO (10-20); Calcium,Total 7.9 mg/dL (8.5-10.1); Chloride 112 mmol/L (98-107); EST Glomerular Filtration Rate 63 mL/min (>60); Est Glom Filt Rate - Afr Amer 76 mL/min (>60); Estimated Creatinine Clearance 31.63 ml/min; Glucose 122 mg/dL (74-106); Potassium 4.3 mmol/L (3.5-5.1); Sodium Level 143 mmol/L (136-145)
[2023-12-08] MEDS: 0.9% Normal Saline (1000mL) 1,000 ML 150 ML IV ×2 (05:48→18:21)
--- NOTE | 2023-12-08 06:43 | NURSING ---
Pt noted to have only 150 output in the last 12 hours, although she has had fluids running at 150/h for the entire 12 hour duration. Vital sign appear stable. Lung sounds auscultated and no crackles noted. Team RN and dry charge process attendant were notified.
--- NOTE | 2023-12-08 09:00 | RAD_ITS ---
STUDY: INTRAOPERATIVE FLUOROSCOPY TECHNIQUE: The examination was performed with referring physician in attendance. Under fluoroscopic observation, fluoroscopic images were obtained. Radiologist was not present for the study. Radiologist did not perform the procedure. This dictation is for documentation of the radiation dosage only. There is no interpretation of the images. TOTAL NUMBER OF IMAGES: 1 COMPARISON: None RADIATION DOSE: 20.4 mGy FLUOROSCOPY TIME: 25.5 seconds REASON FOR EXAM: HIP NAIL Female, 88 years old. FINDINGS: IM nail in place. IM radha in place. RAD/Hip Min 2 Views (Portable) IMPRESSION: Fluoroscopic assistance images were obtained. Dictation for documentation purposes only. Electronically Signed: Theodore Meléndez MD at 16:45 EDT ,
[2023-12-08] MEDS: Ondansetron 4 MG/2 ML Vial IV ×2 (09:30→16:06)
[2023-12-08] MEDS: 0.9% Saline Lock 10 ML Syringe IV ×2 (09:30→16:17)
--- NOTE | 2023-12-08 09:45 | CASEMGMT ---
RN?CM?CLIENT APPLICATION SUPPORT ENGINEER?CM?to room to meet with patient for initial transition planning/care coordination?assessment.?RN?CM?introduced self and role at [facility].? Pt voices understanding and consents to?assessment?at this time.? Pt resting in bed in no distress at this time.? Xavier Frost, @ bedside and Prakash pablo, arrived @ end of assessment. Pt is A/O at this time and answers all questions appropriately.?? Care providers, pharmacy, and demographics verified/updated at this time. PCP: Dr Theodore Bradford @ [facility]. Call placed to registration to have PCP added in [place]. Specialists: none Preferred Pharmacy: [facility], [place] Insurance: [facility] A/B Prescription Benefit:?Yes Living Will/HPOA:?Pt does not currently have LW/HCPOA. Family made aware that they can contact SW as an out-pt and make appt in the future if pt decides she would like to talk with someone about this or would like to utilize [facility] social work for advanced directive completion.? LNOK: 2 Xavier frost and Prakash Living Arrangements: Lives in 2-story home w/2 steps to enter. FF. SonPrakash, stays w/pt in [place] Sun-, but he works during the day from 5 A-7 P, so pt is home alone during that time. SonXavier, lives in [place] and will check on pt during the weekend or will take pt to his home in [place] to stay w/him over the weekend. Xavier's home is also FFSU w/2 steps to enter. Pt sponge-bathes herself and dresses herself @ baseline. Luke get groceries and manages IADL's. Pt often warms up meals in microwave. Transportation: Luke DME: Pt has the following DME:? cane that she mostly uses for community distances/outside the home. When in the home, she does not usually uses the cane, but will furniture walk @ times. Pt does have alert system on her cell phone, but was unable to reach it when she fell. Son interested in medical alert info. Provided at this time. HHC/SNF: No hx of either. Discussed discharge plan. Pt and family state they would like pt to go somewhere to get therapy for awhile and then plan is for her to go to Xavier's home in [place]. Information provided re: RU and SNF and questions answered. Both sons wish for pt to stay @ [facility] for rehab, with 1st choice being [facility] RU and 2nd choice [facility] TCU, if RU unable to accept her and pt agreeable to same plan as well. ARMIDA Gardner, made aware. A list of RU and SNF providers including quality and resource use data and consistent with the patient & family's preferred geographic region , ([place], [place], and [facility] per son's request), medical needs, and insurance network were provided from the [facility] Guide. PLAN:??TBD. RU vs TCU. Pt going to surgery today and therapy evals to be completed. Zulay BSN?RN?CM
--- NOTE | 2023-12-08 09:49 | PN.HOSP_ITS ---
Reason for Visit Reason for Visit: Diagnoses Displaced intertrochanteric fracture of unspecified femur, initial encounter for closed fracture (12/07/23) Subjective Subjective Patient was seen and examined today, she is alert and appropriate, she is scheduled to have ORIF of her right hip fracture today. Objective Data Objective Data Vital Signs: Vital Signs Temp Pulse Resp BP Pulse Ox O2 Del Method 98.2 F 96 16 109/62 96 Room Air 12/08/23 05:35 12/08/23 05:35 12/08/23 05:35 12/08/23 05:35 12/08/23 05:35 12/08/23 05:35 Oxygen Delivery Method Room Air Weight: 48.3 kg Body Mass Index (BMI) 20.7 Intake & Output: Intake and Output for Last 24 Hours 12/06/23 12/07/23 12/08/23 23:59 23:59 23:59 Intake Total 1967.5 / 1967.5 980 / 980 Output Total 175 / 175 50 / 50 Balance 1792.5 / 1792.5 930 / 930 Lab / Micro Data 12/08/23 04:10 12/08/23 04:10 Labs: Laboratory Results - last 24 hr 12/07/23 14:05: WBC 17.6 H, RBC 4.23, Hgb 13.0, Hct 38.7, MCV 91.5, MCH 30.7, MCHC 33.6, RDW Std Deviation 45.1 H, RDW Coeff of Junior 13.4, Plt Count 164, MPV 10.5, Immature Gran % (Auto) 0.600, Neut % (Auto) 88.6 H, Lymph % (Auto) 5.5 L, [place] % (Auto) 4.5, Eos % (Auto) 0.6, Baso % (Auto) 0.2, Absolute Neuts (auto) 15.6 H, Absolute Lymphs (auto) 0.97, Nucleated RBC % 0, PT 16.1 H, INR 1.3, APTT 47.4 H, Sodium 140, Potassium 4.2, Chloride 105, Carbon Dioxide 25.0, Anion Gap 10, BUN 15, Creatinine 0.97, Estim Creat Clear Calc 29.35, Est GFR (MDRD) Af Amer 70, Est GFR (MDRD) Non-Af 58 L, BUN/Creatinine Ratio 15.4, Glucose 185 H, Calcium 9.0, Total Bilirubin 1.20 H, Direct Bilirubin 0.39 H, AST 28, ALT 19, Alkaline Phosphatase 75, Total Creatine Kinase 259 H, Total Protein 6.2 L, Albumin 3.3, Globulin 2.9, Lipase 20 12/07/23 15:20: Urine Color Yellow, Urine Clarity Sl. Cloudy, Urine pH 5.0, Ur Specific [place] 1.020, Urine Protein 100 H, Urine Glucose (UA) Normal, Urine Ketones 15 H, Urine Occult Blood 25 H, Urine Nitrite Negative, Urine Bilirubin 1 H, Urine Urobilinogen 4 H, Ur Leukocyte Esterase 500 H, Urine RBC 0-5 SEEN, Urine WBC 5-10 SEEN, Ur Squamous Epith Cells 0-5 SEEN, Calcium Oxalate Crystal 1+, Urine Bacteria 1+, Urine Mucus 1+ 12/07/23 16:00: Blood Type A POSITIVE, Antibody Screen NEGATIVE 12/08/23 04:10: WBC 8.1, RBC 3.15 L, Hgb 9.8 L, Hct 30.1 L, MCV 95.6, MCH 31.1, MCHC 32.6, RDW Std Deviation 48.0 H, RDW Coeff of Junior 13.8, Plt Count 126 L, MPV 10.9, Immature Gran % (Auto) 0.400, Neut % (Auto) 82.3 H, Lymph % (Auto) 9.9 L, [place] % (Auto) 7.3, Eos % (Auto) 0.0, Baso % (Auto) 0.1, Absolute Neuts (auto) 6.7, Absolute Lymphs (auto) 0.80 L, Nucleated RBC % 0, Sodium 143, Potassium 4.3, Chloride 112 H, Carbon Dioxide 23.0, Anion Gap 8, BUN 20 H, Creatinine 0.90, Estim Creat Clear Calc 31.63, Est GFR (MDRD) Af Amer 76, Est GFR (MDRD) Non-Af 63, BUN/Creatinine Ratio 22.2 H, Glucose 122 H, Calcium 7.9 L Radiography Diagnostic Testing: Radiology Impression Chest X-Ray 12/07/23 14:40 IMPRESSION: Elevation of the left hemidiaphragm. Hyperexpansion of the right lung. Mild scarring at the lung bases slightly more prominent on the left side. Electronically Signed: Errol Castro MD at 15:12 EDT , Femur X-Ray 12/07/23 14:40 IMPRESSION: Comminuted displaced fracture of the intertrochanteric region of the right femur with cephalic migration of the distal fracture fragment. Soft tissue swelling. Electronically Signed: Errol Castro MD at 15:11 EDT , Knee X-Ray 12/07/23 14:40 IMPRESSION: Demineralization of the visualized femur and tibia. No fracture is seen. Electronically Signed: Errol Castro MD at 15:10 EDT , Pelvis X-Ray 12/07/23 14:40 IMPRESSION: Comminuted displaced fracture of the intertrochanter region of proximal right femur with cephalic migration of the distal fracture fragment. Electronically Signed: Errol Castro MD at 15:10 EDT , Physical Exam Const alert, oriented x3, no apparent distress and healthy appearing General Appearance: cooperative, well kempt and well developed Orientation / Consciousness: awake, oriented to person, oriented to place and oriented to time HEENT normocephalic, head/scalp atraumatic and moist oral mucous membranes Eyes PERRL, EOMs intact bilaterally and conjunctivae normal Neck supple, no JVD, thyroid normal and no carotid bruits General: trachea midline Resp normal respiratory effort, no retractions, no use of accessory muscles and clear to auscultation bilaterally Auscultation: Negative for rales, rhonchi or wheezes Cardio regular rate, regular rhythm, no rub and no gallops Cardio Narrative: There is a 2/6 systolic murmur at the left sternal border and apex GI normal to inspection, nondistended, normoactive bowel sounds, soft to palpation, non-tender and non-distended Extremity no clubbing, cyanosis or edema Skin no rashes or lesions noted General Skin Exam: no breakdown Neuro oriented x3, CN's II-XII intact bilaterally, no focal motor deficits and no sensory deficits noted Sensorium / Orientation: awake and alert Speech: speech normal Psych affect normal Assessment & Plan Assessment/Plan (1) Closed intertrochanteric fracture of femur: PLAN: Plan 1. Intertrochanteric fracture of the right hip-again patient will be having surgery today, most likely she will need to go to a [place] [facility] facility for rehab services or rehab unit. #2 anemia-most probably secondary to blood loss from hip fracture, CBC will be monitored after surgery #3 systolic murmur-possibly secondary to mild aortic stenosis or mitral regurg-I do not feel this needs to be worked up at this time Patient appears medically stable for surgery at this time Total clinical time spent by myself addressing the patient's medical issues, reviewing all of her data, and collaborating with patient's care team: 35 minutes Charges/Coding Visit Charges Inpatient E&M: 70639 Subs Hosp L2
--- NOTE | 2023-12-08 10:19 | PRE.ANES_ITS ---
ASA Classification* ASA Classification ASA Classification: 3 and E Assessment & Plan Anesthesia* Anesthesia Assessment Anesthesia Assessment: Discussed sedation and/or anesthesia options, risks, benefits, and alternatives with patient/parents/legal guardian/POA. Questions invited. The patient/parents/legal guardian/POA seems to understand and agrees to proceed with anesthesia plan. Reviewed the physical assessment, medical history, allergy history and patient home medications list prior to surgery/procedure/anesthetic and documented any changes. Performed airway and anesthesia risk assessments. 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 When Was Last Pacemaker Check QUESTION #4 FULL TEXT: You/Your Family Experience fever (hyperthermia) with Anesthesia Last Oral Intake Last Oral intake: Last Oral Intake NPO since Meds taken in AM with sips of water? Meds patient instructed to take am of surgery PONV PONV - freight associate: PONV - freight associate Female HX of Motion Sickness HX of N/V After Surgery Non-Smoker Duration of Surgery greater than 60 minutes Number of Risk Factors PONV Score Height & Weight Height & Weight: Anesthesia: Height & Weight Height 5 ft 12/07/23 16:39 Weight: 48.3 kg 12/07/23 16:39 Body Mass Index (BMI) 20.7 12/07/23 16:39 Respiratory Assessment Respiratory Assessment - freight associate: Respiratory Tract Infection Hx - freight associate Hx Respiratory Tract Infection STOP Sleep Apnea STOP Sleep Apnea - freight associate: STOP Sleep Apnea - freight associate Hx Hypertension No 12/07/23 16:39 Hx Sleep Apnea No 12/07/23 16:39 CPAP No 12/07/23 16:39 BIPAP No 12/07/23 16:39 Do you snore loudly (louder Yes 12/07/23 16:39 than talking or can be heard Do you often feel tired/ Yes 12/07/23 16:39 fatigued/ sleepy during daytime? Has anyone observed you stop Yes 12/07/23 16:39 breathing during sleep? STOP Results Positive 12/07/23 16:39 QUESTION #5 FULL TEXT : Do you snore loudly (louder than talking or can be heard through closed doors)? 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 Specify any problems Hx of Preganancy in last 3 N/A 12/07/23 16:39 Months Nurse Filling Out Transfusion FSTEINER 12/07/23 16:39 & Questions: Date: 12/07/23 12/07/23 16:39 Time: 16:40 12/07/23 16:39 Patient unable to answer at this time (ie. confused, unrespo /Reproduction History /Reproductive History - freight associate: /Reproductive Hx- freight associate Hx Now Gestational Age (in weeks): EDC: Hx Hx Para Hx Section SAB Active Medications Active Medications: Current Medications Generic Name Dose Route Start Last Admin Trade Name Freq PRN Reason Stop Dose Admin Acetaminophen 650 mg 12/07/23 16:48 Acetaminophen 325 Mg Tablet PO Q6H PRN PRN Pain 1-10 Or Fever >100.7 Heparin Sodium (Porcine) 5,000 unit 12/07/23 22:00 12/08/23 04:54 Heparin Injection (Vial) 5,000 Unit/Ml Vial SC Not Given Q12 MYLENE Sodium Chloride 1,000 mls @ 150 mls/hr 12/07/23 15:25 12/08/23 05:48 IV 150 mls/hr .[id number] MYLENE Administration Sodium Chloride 250 mls @ 15 mls/hr 12/07/23 16:38 IV .[id number] PRN Additional IVPB Infusion Sodium Chloride 250 mls @ 15 mls/hr 12/07/23 16:38 IV .[id number] PRN Saline Flush Morphine Sulfate 2 - 4 mg 12/07/23 18:32 Morphine 2 Mg/Ml Syringe IV Q3H PRN PRN Pain Score 6-10 Morphine Sulfate 2 - 4 mg 12/07/23 18:47 12/07/23 23:26 Morphine 4 Mg/Ml Syringe IV 4 mg Q3H PRN PRN Administration Pain Score 6-10 Ondansetron HCl 4 mg 12/07/23 18:32 12/08/23 09:30 Ondansetron 4 Mg/2 Ml Vial IV 4 mg Q6H PRN PRN Administration NAUSEA/VOMITING Oxycodone HCl 5 mg 12/07/23 16:48 Oxycodone 5 Mg Tablet PO Q4H PRN PRN Pain Score 4-10 Sodium Chloride 10 - 40 ml 12/07/23 16:38 12/08/23 09:30 0.9% Saline Lock 10 Ml Syringe IV 10 ml UD PRN Administration SALINE FLUSH Anesthesia Focused Assessment* Temperature: 98.2 F Pulse Rate: 96 Blood Pressure: 109/62 Respiratory Rate: 16 Pulse Ox: 96 Airway Assessment Mouth opens: >3 cm Mallampati Score: II Focused Labs Anesthesia Preop lab: CBC WBC 8.1 K/mm3 (4.4-11.0) 12/08/23 04:10 RBC 3.15 M/mm3 (4.2-5.4) L 12/08/23 04:10 Hgb 9.8 g/dL (12.0-15.0) L 12/08/23 04:10 Hct 30.1 % (37-47) L 12/08/23 04:10 Plt Count 126 K/mm3 (150-450) L 12/08/23 04:10 CHEMISTRY Potassium 4.3 mmol/L (3.5-5.1) 12/08/23 04:10 Sodium 143 mmol/L (136-145) 12/08/23 04:10 BUN 20 mg/dL (7-18) H 12/08/23 04:10 Creatinine 0.90 mg/dL (0.55-1.02) 12/08/23 04:10 Glucose 122 mg/dL (74-106) H 12/08/23 04:10 COAG PT 16.1 SECONDS (11.7-14.9) H 12/07/23 14:05 Review of Systems (Anesthesia) ROS Narrative System reviewed and no additional complaints, except as documented. [facility] Medical History Non-smoker Irregular heart beat Home Medications ?Medication ?Instructions ?Recorded ?Last Taken ?Type aspirin 81 mg tablet,delayed 81 mg PO DAILY 08/12/23 12/07/23 History release (Adult Aspirin Regimen) Allergy/AdvReac Type Severity Reaction Status Date / Time No Known Allergies Allergy Verified 12/07/23 14:01 Surgical History Hx of cholecystectomy Social History Smoking Status: Never smoker
[2023-12-08] MEDS: Lactated Ringers 1,000 ML 15 ML IV (10:44)
--- NOTE | 2023-12-08 11:05 | PN.ORTHO_ITS ---
Subjective Subjective No concerns. alert and oriented. Objective Data Objective Data Vital Signs: Vital Signs Temp Pulse Resp BP Pulse Ox O2 Del Method 98.2 F 96 16 109/62 96 Room Air 12/08/23 10:21 12/08/23 10:21 12/08/23 10:21 12/08/23 10:21 12/08/23 10:21 12/08/23 09:52 Oxygen Delivery Method Room Air Weight: 106 lb 7.732 oz Body Mass Index (BMI) 20.7 Intake & Output: Intake and Output for Last 24 Hours 12/06/23 12/07/23 12/08/23 23:59 23:59 23:59 Intake Total 1967.5 / 1967.5 980 / 980 Output Total 175 / 175 50 / 50 Balance 1792.5 / 1792.5 930 / 930 Lab / Micro Data 12/08/23 04:10 12/08/23 04:10 Labs: Laboratory Results - last 24 hr 12/07/23 14:05: WBC 17.6 H, RBC 4.23, Hgb 13.0, Hct 38.7, MCV 91.5, MCH 30.7, MCHC 33.6, RDW Std Deviation 45.1 H, RDW Coeff of Junior 13.4, Plt Count 164, MPV 10.5, Immature Gran % (Auto) 0.600, Neut % (Auto) 88.6 H, Lymph % (Auto) 5.5 L, [place] % (Auto) 4.5, Eos % (Auto) 0.6, Baso % (Auto) 0.2, Absolute Neuts (auto) 15.6 H, Absolute Lymphs (auto) 0.97, Nucleated RBC % 0, PT 16.1 H, INR 1.3, APTT 47.4 H, Sodium 140, Potassium 4.2, Chloride 105, Carbon Dioxide 25.0, Anion Gap 10, BUN 15, Creatinine 0.97, Estim Creat Clear Calc 29.35, Est GFR (MDRD) Af Amer 70, Est GFR (MDRD) Non-Af 58 L, BUN/Creatinine Ratio 15.4, Glucose 185 H, Calcium 9.0, Total Bilirubin 1.20 H, Direct Bilirubin 0.39 H, AST 28, ALT 19, Alkaline Phosphatase 75, Total Creatine Kinase 259 H, Total Protein 6.2 L, Albumin 3.3, Globulin 2.9, Lipase 20 12/07/23 15:20: Urine Color Yellow, Urine Clarity Sl. Cloudy, Urine pH 5.0, Ur Specific [place] 1.020, Urine Protein 100 H, Urine Glucose (UA) Normal, Urine Ketones 15 H, Urine Occult Blood 25 H, Urine Nitrite Negative, Urine Bilirubin 1 H, Urine Urobilinogen 4 H, Ur Leukocyte Esterase 500 H, Urine RBC 0-5 SEEN, Urine WBC 5-10 SEEN, Ur Squamous Epith Cells 0-5 SEEN, Calcium Oxalate Crystal 1+, Urine Bacteria 1+, Urine Mucus 1+ 12/07/23 16:00: Blood Type A POSITIVE, Antibody Screen NEGATIVE 12/08/23 04:10: WBC 8.1, RBC 3.15 L, Hgb 9.8 L, Hct 30.1 L, MCV 95.6, MCH 31.1, MCHC 32.6, RDW Std Deviation 48.0 H, RDW Coeff of Junior 13.8, Plt Count 126 L, MPV 10.9, Immature Gran % (Auto) 0.400, Neut % (Auto) 82.3 H, Lymph % (Auto) 9.9 L, [place] % (Auto) 7.3, Eos % (Auto) 0.0, Baso % (Auto) 0.1, Absolute Neuts (auto) 6.7, Absolute Lymphs (auto) 0.80 L, Nucleated RBC % 0, Sodium 143, Potassium 4.3, Chloride 112 H, Carbon Dioxide 23.0, Anion Gap 8, BUN 20 H, Creatinine 0.90, Estim Creat Clear Calc 31.63, Est GFR (MDRD) Af Amer 76, Est GFR (MDRD) Non-Af 63, BUN/Creatinine Ratio 22.2 H, Glucose 122 H, Calcium 7.9 L Radiography Diagnostic Testing: Radiology Impression Chest X-Ray 12/07/23 14:40 IMPRESSION: Elevation of the left hemidiaphragm. Hyperexpansion of the right lung. Mild scarring at the lung bases slightly more prominent on the left side. Electronically Signed: Errol Castro MD at 15:12 EDT , Femur X-Ray 12/07/23 14:40 IMPRESSION: Comminuted displaced fracture of the intertrochanteric region of the right femur with cephalic migration of the distal fracture fragment. Soft tissue swelling. Electronically Signed: Errol Castro MD at 15:11 EDT , Knee X-Ray 12/07/23 14:40 IMPRESSION: Demineralization of the visualized femur and tibia. No fracture is seen. Electronically Signed: Errol Castro MD at 15:10 EDT , Pelvis X-Ray 12/07/23 14:40 IMPRESSION: Comminuted displaced fracture of the intertrochanter region of proximal right femur with cephalic migration of the distal fracture fragment. Electronically Signed: Errol Castro MD at 15:10 EDT , Physical Exam Const alert Constitutional Narrative: nvi. Assessment & Plan Assessment/Plan (1) Closed intertrochanteric fracture of femur: PLAN: PAD 1 , no changes to H and P. ok to proceed. spinal anesthetic. spoke with both sons preop, re discussed post op recovery, rab. will proceed.
[2023-12-08] MEDS: Cefazolin 2 GM in 0.9% Normal Saline (100mL Bag) 100 ML IV (11:10)
[2023-12-08] MEDS: TRANEXAMIC ACID 1,000 MG in 0.9% Normal Saline (100mL Bag) 100 ML 660 MG IV (11:25)
--- NOTE | 2023-12-08 12:23 | PCM.OPRPT ---
Problems Associated Problem List Diagnoses (1) Closed intertrochanteric fracture of femur: Report of Operation Date of Procedure: 12/08/23 Pre-Operative Diagnosis: R hip fracture Post-Operative Diagnosis: same Surgery/Procedure Performed:: Right hip ORIF CM nail Surgeon: Dwayne Soni Type of Anesthesia: Spinal Anesthesiologist: Royce Quezada Estimated Blood Loss (mL): 100 Description of Procedure: Patient brought to the operating room theater. Placed supine on the fracture table. Spinal anesthesia administered prior to start of the procedure. All bony prominences padded. Right leg in traction and internal rotation. The left leg attached to the middle post of the bed scissoring position with appropriate padding at the medial lateral aspects of the leg along the peroneal nerve. Right lower extremity prepped and draped in the usual sterile fashion allowing over 3 minutes drying time prior to draping. 2 g of IV Ancef as well as 1 g of IV tranexamic acid administered prior to start of procedure. Preoperative timeout performed to confirm the site patient and the surgery. Began by taking AP and lateral radiographs taken to ensure appropriate reduction. There is large medial spike as well as moderate amount of comminution at the metaphyseal area of the proximal femur. I passed the guidewire through small percutaneous incision at the tip of the trochanter on both AP and lateral radiographs. I then made a small stab incision to pass a bone hook at the medial metaphysis and medial aspect of the femoral neck to pull this back into place with a countertraction on the distal fragment to ensure appropriate reduction while reaming and passing the nail. This achieved good reduction on both AP and lateral planes. Slight flexion of the neck tried to lift up the distal leg a little bit to remove that. I used the entry reamer and then passed the ball-tipped guidewire with a slight curve at the distal aspect through the reamed segment down to the knee at the proximal pole the patella. Try to ensure that this was in the middle of the femur but the patient had quite a bit of a femoral bow. I reamed sequentially up to 13.5 mm reamer. I measured 380 mm and therefore I selected a 360 mm long nail 130 degree neck shaft angle with 12 mm diameter. I inserted this in the femur down to appropriate depth. I used the drop-down guide at 130 degrees. I remove the ball-tipped guidewire. I used a percutaneous stab incisions to then passed the guidewire center center slightly inferior and posterior in the neck down to the subchondral bone of the femoral head in the middle of the femoral head. This measured 102 mm therefore reamed up to 95 mm and selected a 95 mm helical blade. Passed the blade over the guidewire impacted this into place. Then applied compression and I remove the bone hook instrument. I then locked the nail proximally. I then turned my attention distally using perfect [place] technique and percutaneous stab incisions I then passed 2 5.0 mm fully threaded cortical screws these both measure 44 mm long. I used the most distal hole in the nail as well as the oblong hole. I confirm the appropriate placement on both AP and lateral radiographs final pictures were taken and saved onto the system I also did the near far technique proximally to ensure no femoral head penetration. Guides were removed final radiographs taken and saved onto the system. Wound thoroughly irrigated subtenons tissue closed with 2-0 Vicryl suture and skin with renard. Skin cleaned with wet dry dressing followed by occasional silver Mepilex and OpSite with gauze distally. Patient transferred out of the traction set up off the operating table and taken to postanesthetic care unit in stable condition. All sponge needle instrument counts were correct no complications plan for the patient readmitted under the hospitalist service [place] for VT prophylaxis starting 24 hours postoperatively. Weightbearing as tolerated and PT and OT to see and assess. cpt 66660? Complications none Admit VTE Documentation VTE Present on Admission: No VTE Mechan Device Prophylaxis: SCD's VTE Pharm Prophylaxis ordered?: Yes Procedures Musculoskeletal [id number]: Other Procedure See Report
--- NOTE | 2023-12-08 12:28 | PCM.POST.ANE ---
Anesthesia: Postop Eval I Current Vital Signs Temperature: 97.9 F Pulse Rate: 90 Blood Pressure: 102/64 Respiratory Rate: 16 Pulse Ox: 100 Oxygen Delivery Method: Room Air Assessment Airway patent: Yes Spontaneous unlabored respirations: Yes Mental status: Awake and Calm nausea: No Vomiting: No Anesthesia Complication: No Fluid Hydration Crystalloid volume administer (ml): 1,000 Total IV fluid infused: 1,000 Progress Note Anesthesia document: Postop Eval 1 completed: Yes
--- NOTE | 2023-12-08 12:33 | POSTOPAN2_ITS ---
Anesthesia Postop Eval I Sum Postop Eval Completion status Anesthesia document: Postop Eval 1 completed: Yes Anesthesia Postop Eval I Summary Anesthesia Postop Eval I Summary: Anesthesia Postop Eval I: Assessment Summary Airway patent Yes 12/08/23 12:29 FURNITURE [email or web address] [email or web address] Spontaneous unlabored Yes 12/08/23 12:29 FURNITURE [email or web address] [email or web address] respirations Mental status Awake,Calm 12/08/23 12:29 FURNITURE UPHOLSTERY [email or web address] nausea No 12/08/23 12:29 FURNITURE UPHOLSTERY [email or web address] Vomiting No 12/08/23 12:29 FURNITURE UPHOLSTERY [email or web address] Anesthesia Postop Eval I: Fluid Summary Crystalloid volume administer 1,000 12/08/23 12:29 FURNITURE [email or web address] [email or web address] (ml) Colloids volume administered ( ml) Blood Product volume administered (ml) Total IV fluid infused 1,000 12/08/23 12:29 FURNITURE UPHOLSTERY [email or web address] Anesthesia Postop Eval I: Summary Notes Anesthesia Complication No 12/08/23 12:29 FURNITURE UPHOLSTERY [email or web address] Anesthesia Complication Comment: Post-operative progress note Anesthesia: Postop Eval II Evaluation Mental status: Awake and Calm Pain Level: 0 nausea: No Vomiting: No Complications Anesthesia Complication: No
--- NOTE | 2023-12-08 12:33 | PCM.POSTANE2 ---
Anesthesia Postop Eval I Sum Postop Eval Completion status Anesthesia document: Postop Eval 1 completed: Yes Anesthesia Postop Eval I Summary Anesthesia Postop Eval I Summary: Anesthesia Postop Eval I: Assessment Summary Airway patent Yes 12/08/23 12:29 [email or web address] Spontaneous unlabored Yes 12/08/23 12:29 [email or web address] respirations Mental status Awake,Calm 12/08/23 12:29 [email or web address] nausea No 12/08/23 12:29 [email or web address] Vomiting No 12/08/23 12:29 [email or web address] Anesthesia Postop Eval I: Fluid Summary Crystalloid volume administer 1,000 12/08/23 12:29 [email or web address] (ml) Colloids volume administered ( ml) Blood Product volume administered (ml) Total IV fluid infused 1,000 12/08/23 12:29 [email or web address] Anesthesia Postop Eval I: Summary Notes Anesthesia Complication No 12/08/23 12:29 [email or web address] Anesthesia Complication Comment: Post-operative progress note Anesthesia: Postop Eval II Evaluation Mental status: Awake and Calm Pain Level: 0 nausea: No Vomiting: No Complications Anesthesia Complication: No
--- NOTE | 2023-12-08 14:23 | CASEMGMT ---
Social Work Collaboration with JIMMY GOODWIN on discharge planning. SNF and RU lists were provided to the patient and family by Blaine MARQUEZ CM. First and second choice respectively are [facility] RU and TCU units. Patient and family anticipating need for some rehab as patient is hospitalized for hip fracture and surgical repair. Patient is for surgery today. Secure message to Sierra in admissions for both RU and TCU regarding referral, that patient is for surgery today and not yet had PT/OT. Plan: Pending PT/OT evals after surgery, which will aid RU/TCU footwear sales coordinator to evaluate for admission to either unit. SW to follow. -BÁRBARA Allen
[2023-12-08] MEDS: Morphine 2 MG/ML Syringe IV (16:07)
[2023-12-09] MEDS: 0.9% Normal Saline (1000mL) 1,000 ML 150 ML IV ×4 (00:40→20:26)
[2023-12-09 00:41] VITALS: BP 123/64; PULSE 94; RESP 16; TEMP 36.8; O2SAT 95
[2023-12-09] MEDS: Morphine 2 MG/ML Syringe IV ×3 (00:46→08:34)
[2023-12-09] MEDS: Ondansetron 4 MG/2 ML Vial IV ×2 (00:47→08:09)
[2023-12-09 05:10] VITALS: BP 108/61; PULSE 96; RESP 16; TEMP 36.9; O2SAT 96
[2023-12-09 08:22] VITALS: PULSE 70
[2023-12-09] MEDS: 0.9% Saline Lock 10 ML Syringe IV (08:37)
--- NOTE | 2023-12-09 11:29 | PCM.PN.ORT ---
Subjective Subjective doing well. up in a chair. mild pain with movement. no concerns. Objective Data Objective Data Vital Signs: Vital Signs Temp Pulse Resp BP Pulse Ox O2 Del Method 98.4 F 70 16 108/61 96 Room Air 12/09/23 05:10 12/09/23 08:22 12/09/23 05:10 12/09/23 05:10 12/09/23 05:10 12/09/23 05:10 Oxygen Delivery Method Room Air Weight: 106 lb 7.732 oz Body Mass Index (BMI) 20.7 Intake & Output: Intake and Output for Last 24 Hours 12/07/23 12/08/23 12/09/23 23:59 23:59 23:59 Intake Total 1967.5 / 1967.5 3200.0 / 3200.0 2037.5 / 2037.5 Output Total 175 / 175 300 / 300 425 / 425 Balance 1792.5 / 1792.5 2900.0 / 2900.0 1612.5 / 1612.5 Lab / Micro Data 12/08/23 04:10 12/08/23 04:10 Radiography Diagnostic Testing: Radiology Impression Hip X-Ray 12/08/23 09:00 IMPRESSION: Fluoroscopic assistance images were obtained. Dictation for documentation purposes only. Electronically Signed: Theodore Meléndez MD at 16:45 EDT Reading Location ID and State: [facility] / [place] , Service support , Physical Exam Const alert, oriented x3 and no apparent distress Constitutional Narrative: up to chair, drsg dry, thigh soft, nvi, wiggles toes, df and pf the foot, normal sensation, warm well perfused. Assessment & Plan Assessment/Plan (1) Closed intertrochanteric fracture of femur: PLAN: PAD 1 R hip ORIF long nail. CCM. WBAT. PT/OT. xarelto for vte proph. no concerns.
[2023-12-09 14:15] VITALS: BP 112/64; PULSE 82; RESP 18; TEMP 36.6; O2SAT 97
--- NOTE | 2023-12-09 14:27 | PCM.PN.HOSP ---
Reason for Visit Reason for Visit: Diagnoses Displaced intertrochanteric fracture of unspecified femur, initial encounter for closed fracture (12/07/23) Subjective Subjective Patient was seen and examined today, she does not appear to be in any distress, she is alert and oriented Objective Data Objective Data Vital Signs: Vital Signs Temp Pulse Resp BP Pulse Ox O2 Del Method 97.8 F 82 18 112/64 97 Room Air 12/09/23 14:15 12/09/23 14:15 12/09/23 14:15 12/09/23 14:15 12/09/23 14:15 12/09/23 14:15 Oxygen Delivery Method Room Air Weight: 48.3 kg Body Mass Index (BMI) 20.7 Intake & Output: Intake and Output for Last 24 Hours 12/07/23 12/08/23 12/09/23 23:59 23:59 23:59 Intake Total 1967.5 / 1967.5 3200.0 / 3200.0 4157.5 / 4157.5 Output Total 175 / 175 300 / 300 725 / 725 Balance 1792.5 / 1792.5 2900.0 / 2900.0 3432.5 / 3432.5 Lab / Micro Data 12/08/23 04:10 12/08/23 04:10 Radiography Diagnostic Testing: Radiology Impression Hip X-Ray 12/08/23 09:00 IMPRESSION: Fluoroscopic assistance images were obtained. Dictation for documentation purposes only. Electronically Signed: Theodore Meléndez MD at 16:45 EDT Reading Location ID and State: [facility] / [place] , Service support , Physical Exam Narrative alert, oriented x3, no apparent distress and healthy appearing General Appearance: cooperative, well kempt and well developed Orientation / Consciousness: awake, oriented to person, oriented to place and oriented to time HEENT normocephalic, head/scalp atraumatic and moist oral mucous membranes Eyes PERRL, EOMs intact bilaterally and conjunctivae normal Neck supple, no JVD, thyroid normal and no carotid bruits General: trachea midline Resp normal respiratory effort, no retractions, no use of accessory muscles and clear to auscultation bilaterally Auscultation: Negative for rales, rhonchi or wheezes Cardio regular rate, regular rhythm, no rub and no gallops Cardio Narrative: There is a 2/6 systolic murmur at the left sternal border and apex GI normal to inspection, nondistended, normoactive bowel sounds, soft to palpation, non-tender and non-distended Extremity no clubbing, cyanosis or edema Skin no rashes or lesions noted General Skin Exam: no breakdown Neuro oriented x3, CN's II-XII intact bilaterally, no focal motor deficits and no sensory deficits noted Sensorium / Orientation: awake and alert Speech: speech normal Psych affect normal Assessment & Plan Assessment/Plan (1) Closed intertrochanteric fracture of femur: PLAN: Plan 1. Intertrochanteric fracture of the right hip-postop day 1 right hip ORIF cephalic medullary nail-PT and OT continue, patient consents to go to the rehab unit at [facility] for inpatient rehab services, I will talk to discharge planning tomorrow #2 anemia-most probably secondary to blood loss from hip fracture, CBC will be monitored after surgery as needed #3 systolic murmur-possibly secondary to mild aortic stenosis or mitral regurg-I do not feel this needs to be worked up at this time Total clinical time spent by myself addressing the patient's medical issues, reviewing all of her data, and collaborating with patient's care team: 35 minutes Charges/Coding Visit Charges Inpatient E&M: 65823 Subs Hosp L2
[2023-12-09 20:09] VITALS: BP 130/67; PULSE 77; RESP 18; TEMP 37.1; O2SAT 97
[2023-12-10 02:41] VITALS: BP 109/62; PULSE 92; RESP 18; TEMP 36.8; O2SAT 97
[2023-12-10] MEDS: 0.9% Normal Saline (1000mL) 1,000 ML 150 ML IV (02:52)
[2023-12-10 08:44] VITALS: BP 130/70; PULSE 86; RESP 18; TEMP 36.8; O2SAT 94
--- NOTE | 2023-12-10 08:47 | NURSING ---
male at bedside, states he is pt son Prakash. discussion/education/reinforcement provided on medications, use/purpose, risks & ramifications of meds. pt states she is agreeable to take medications as long as they are mixed in liquid like my ensure, otherwise i won't take them. pt son states that pt self diagnosed herself as having a hiatal hernia. pt states she chokes at times at home
[2023-12-10] MEDS: Acetaminophen 325 MG Tablet 650 MG PO ×2 (08:53→14:44)
[2023-12-10] MEDS: oxyCODONE 5 MG Tablet PO ×2 (08:54→14:44)
[2023-12-10] MEDS: Rivaroxaban 10 MG Tablet PO (08:54)
--- NOTE | 2023-12-10 11:02 | NURSING ---
pt declines any urge/feeling/needing to void. i haven't been drinking much. I will get up and try to pee when therapy sees me. I don't normally pee much during the day either. declines to get oob to [facility] as pt reports she doesn't feel she has to void yet
--- NOTE | 2023-12-10 11:03 | CASEMGMT ---
Social Work- SW called pt son, Prakash, to provide update, as he had called in. SW advised pt son that IRU has asked for additional labs and urine before deciding acceptance. SW will keep family updated on status of referral. CHAYO Quinones
--- NOTE | 2023-12-10 13:59 | CHAPLAIN ---
Type of Pastoral Visit _x__ Initial Visit ___ Follow-up Visit ___ On-call Visit ___ General Patient Visit ___ Spiritual Assessment ___ Family Conference ___ Bereavement ___ Rapid Response ___ Code Blue ___ Other (describe below) Pastoral Care Referral From _x__ Patient ___ Family ___ Nurse ___ Physician ___ Global Product Manager ___ Media Manager ___ Other (describe below) Sacrament/Intervention _x__ Active listening ___ Anointing ___ Sabianist ___ Bereavement ___ Communion ___ Sarah exploration ___ _x__ Life review _x__ Prayer ___ Reconciliation ___ Sacrament of Sick _x__ Supportive presence ___ Wedding ___ Other (describe below) Pastoral Comments patient is welcoming and is very talkative; pt gives details of her fall and her current situation along with the plan for her future care and support; pt has two sons that are providing what she needs; pt talks about her changes of life with the recent of her and the inability to live at home; pt repeatedly talks about fulfilling her husbands desire to care for the family and make sure they all go to college and get a good start in life; pt is of the [employer] and has a long relationship with the [place] in [place] and hopes to remain with them; pt pauses enough for a prayer; pt continues to talk about her life and situation
[2023-12-10 14:27] VITALS: BP 103/57; PULSE 89; RESP 18; TEMP 36.8; O2SAT 98
[2023-12-10 15:27] LABS: Color, Urine Yellow (Yellow); Glucose, Dipstick Normal (Normal); Ketone-Dipstick Negative (Negative); Leukocyte Esterase-Dipstick Negative /ul (Negative); Nitrite-Dipstick Negative (Negative); Occult Blood-Urine Negative /ul (Negative); Protein-Dipstick 15 mg/dl (Negative); Urine Bilirubin Dipstick Negative (Negative); Urine Clarity Sl. Cloudy (Clear); Urine Urobilinogen 1 mg/dl (Normal)
[2023-12-10 15:43] LABS: Bacteria 2+ /hpf (None Seen); Mucous, Urine 1+ /hpf (<or=2+); Squamous Epithelial Cells - UA 0-5 SEEN /hpf (5-10)
[2023-12-10 15:45] LABS: Red Blood Cells-Urine 0-5 SEEN /hpf (0-5); White Blood Cells 0-5 SEEN /hpf (0-5)
--- NOTE | 2023-12-10 15:57 | PCM.PN.HOSP ---
Reason for Visit Reason for Visit: Diagnoses Displaced intertrochanteric fracture of unspecified femur, initial encounter for closed fracture (12/07/23) Subjective Subjective Patient was seen and examined today, she had no specific complaints. The rehab unit here at [facility] is agreed to accept her tomorrow, they would like some routine labs on her in the morning and requested UA be performed. Patient had some urinary retention today, she was placed on a Gomez. I have decided to place her on some Flomax to see if this helps. Objective Data Objective Data Vital Signs: Vital Signs Temp Pulse Resp BP Pulse Ox O2 Del Method 98.2 F 89 18 103/57 L 98 Room Air 12/10/23 14:27 12/10/23 14:27 12/10/23 14:27 12/10/23 14:27 12/10/23 14:27 12/10/23 14:27 Oxygen Delivery Method Room Air Weight: 48.3 kg Body Mass Index (BMI) 20.7 Intake & Output: Intake and Output for Last 24 Hours 12/08/23 12/09/23 12/10/23 23:59 23:59 23:59 Intake Total 3200.0 / 3200.0 6297.5 / 6297.5 3158.75 / 3158.75 Output Total 300 / 300 725 / 725 375 / 375 Balance 2900.0 / 2900.0 5572.5 / 5572.5 2783.75 / 2783.75 Lab / Micro Data 12/08/23 04:10 12/08/23 04:10 Labs: Laboratory Results - last 24 hr 12/10/23 14:45: Urine Color Yellow, Urine Clarity Sl. Cloudy, Urine pH 5.0, Ur Specific [place] 1.020, Urine Protein 15 H, Urine Glucose (UA) Normal, Urine Ketones Negative, Urine Occult Blood Negative, Urine Nitrite Negative, Urine Bilirubin Negative, Urine Urobilinogen 1 H, Ur Leukocyte Esterase Negative, Urine RBC 0-5 SEEN, Urine WBC 0-5 SEEN, Ur Squamous Epith Cells 0-5 SEEN, Urine Bacteria 2+, Urine Mucus 1+ Physical Exam Narrative alert, oriented x3, no apparent distress and healthy appearing General Appearance: cooperative, well kempt and well developed Orientation / Consciousness: awake, oriented to person, oriented to place and oriented to time HEENT normocephalic, head/scalp atraumatic and moist oral mucous membranes Eyes PERRL, EOMs intact bilaterally and conjunctivae normal Neck supple, no JVD, thyroid normal and no carotid bruits General: trachea midline Resp normal respiratory effort, no retractions, no use of accessory muscles and clear to auscultation bilaterally Auscultation: Negative for rales, rhonchi or wheezes Cardio regular rate, regular rhythm, no rub and no gallops Cardio Narrative: There is a 2/6 systolic murmur at the left sternal border and apex GI normal to inspection, nondistended, normoactive bowel sounds, soft to palpation, non-tender and non-distended Extremity no clubbing, cyanosis or edema Skin no rashes or lesions noted General Skin Exam: no breakdown Neuro oriented x3, CN's II-XII intact bilaterally, no focal motor deficits and no sensory deficits noted Sensorium / Orientation: awake and alert Speech: speech normal Psych affect normal Assessment & Plan Assessment/Plan (1) Closed intertrochanteric fracture of femur: PLAN: Plan 1. Intertrochanteric fracture of the right hip-postop day 2 right hip ORIF cephalic medullary nail-PT and OT continue, labs will be obtained in the morning, if she is medically stable she may be able to go over to the rehab unit at [facility]. #2 anemia-most probably secondary to blood loss from hip fracture, CBC will be monitored after surgery as needed #3 systolic murmur-possibly secondary to mild aortic stenosis or mitral regurg-I do not feel this needs to be worked up at this time Total clinical time spent by myself addressing the patient's medical issues, reviewing all of her data, and collaborating with patient's care team: 35 minutes Charges/Coding Visit Charges Inpatient E&M: 40008 Subs Hosp L2
--- NOTE | 2023-12-10 16:12 | CASEMGMT ---
Social Work- SW spoke with pt and son Prakash who state pt does have advanced directives. Son Prakash will try to being them in to place on pt chart. Pt and pt son are both uncertain on who is named HCPOA. CHAYO Quinones
[2023-12-10 20:57] VITALS: BP 109/63; PULSE 88; RESP 18; TEMP 36.6; O2SAT 97
[2023-12-11 03:38] VITALS: BP 91/70; PULSE 83; RESP 18; TEMP 36.6; O2SAT 95
[2023-12-11 06:36] LABS: Absolute Lymphocyte Count 0.89 X10^3/uL (0.83-4.51); Absolute Neutrophil Count 5.4 X10^3/uL (2.0-7.7); Basophil# 0.01 X10^3/uL; Basophil% 0.1 % (0-1); Eosinophil# 0.14 X10^3/uL; Hematocrit 21.6 % (37-47); Lymphocyte # 0.89 X10^3/ul (0.83-4.51); Lymphocyte % 12.8 % (19-41); Mean Corp Hgb Conc 32.4 g/dL (32-36); Mean Corpuscular Hgb 31.3 pg (27.0-32.0); Mean Corpuscular Volume 96.4 fL (81-99); Monocyte# 0.49 X10^3/uL; Monocyte% 7.1 % (0-10); NRBC Flagged by Analyzer 0.9 % (0-5); Neutrophil # 5.37 X10^3/uL (2.7-7.7); Neutrophil % 77.3 % (47-70); Platelet Count 136 K/mm3 (150-450); RBC Distribution Width CV 13.6 % (11.6-14.6); RBC Distribution Width SD 46.7 fl (35.1-43.9); Red Blood Count 2.24 M/mm3 (4.2-5.4)
[2023-12-11 07:06] LABS: Anion Gap 5 (5-15); BUN 16 mg/dL (7-18); BUN/Creat Ratio 34.3 RATIO (10-20); Calcium,Total 7.9 mg/dL (8.5-10.1); Chloride 110 mmol/L (98-107); Creatinine, Serum 0.47 mg/dL (0.55-1.02); EST Glomerular Filtration Rate 135 mL/min (>60); Est Glom Filt Rate - Afr Amer 163 mL/min (>60); Estimated Creatinine Clearance 35.59 ml/min; Glucose 117 mg/dL (74-106); Potassium 3.8 mmol/L (3.5-5.1); Sodium Level 140 mmol/L (136-145)
[2023-12-11 08:21] VITALS: BP 98/57; PULSE 84; RESP 16; TEMP 36.6; O2SAT 97
[2023-12-11] MEDS: Acetaminophen 500 MG Tablet 1000 MG PO (11:14)
[2023-12-11] MEDS: oxyCODONE 5 MG Tablet PO (11:15)
[2023-12-11 11:46] LABS: Hematocrit 24.4 % (37-47); Hemoglobin 7.9 g/dL (12.0-15.0)
--- NOTE | 2023-12-11 16:46 | PCM.TXEXTCAR ---
Diet Diet Order/Speech Therapy: 12/08/23 13:26 Diet: Regular - General Food consistency:: Easy to Chew Liquid Consistency:: Regular/Thin Type of Dietary Supplement:: Magic Cup L and D Is pt able to select menu?: Yes Diet Comments: Distant supervision, ensure compact with all meals Routine Orders/Code Status Routine Lab Work: CBC (On 12/13/2023) Code Status: Full Code Wound(s) RIGHT HIP: Wound Type: Surgical Incision right lower thigh: Wound Type: Surgical Incision Therapies Weight Bearing: Weight bearing as tolerated Physical Therapy: Eval and Treat Occupational Therapy: Eval and Treat Problem/Diagnosis (1) Closed intertrochanteric fracture of femur: Status: Acute Code(s): S72.143A - Displaced intertrochanteric fracture of unspecified femur, initial encounter for closed fracture Plan 1. Intertrochanteric fracture of the right hip-postop day 3 right hip ORIF cephalic medullary nail-PT and OT continue, labs will be obtained in the morning, if she is medically stable she may be able to go over to the rehab unit at [facility]. #2 anemia-most probably secondary to blood loss from hip fracture, CBC will be monitored after surgery as needed, repeat hemoglobin today was 7.9 #3 systolic murmur-possibly secondary to mild aortic stenosis or mitral regurg-I do not feel this needs to be worked up at this time Total clinical time spent by myself addressing the patient's medical issues, reviewing all of her data, and collaborating with patient's care team: 35 minutes Allergies/Procedures Done in Hospital Allergies No Known Allergies Allergy (Verified 12/07/23 14:01) Procedures: - (Cephalo medullary nail insertion right hip 12/08/2023) Type of Care/Length of Stay Estimated LOS: Convalescent Care Less Than 30 days Type of Care Needed: Acute Rehab Rehab Potential: Good Prognosis: Good Additional Orders/Day of Discharge H&P will serve as current which was dated: 12/07/23 Day of Discharge: 12/11/23 Dietary and Speech Recommendations Dietitian Recommendations/Changes: Continue liberalized regular diet with altered consistency/texture as needed. Continue ensure compact w/ all meals. Will add magic cup with lunch and dinner for tolerance. Monitor new weights as available and oral intake, reassess for malnutrition parameters. Discharge Plan Admission Admit Date/Time: 12/07/23 15:58 Primary Reason for Your Visit: Right hip fracture Attending Provider: Sameer Coughlin Primary Care Provider: DULCE MORRELL Consulting Providers: Rober Nava Discharge Orders/Prescriptions Prescriptions: New acetaminophen 500 mg Tablet 1,000 mg PO Q8H PRN PRN (Reason: Pain 1-10 Or Fever) Qty: 0 0RF oxycodone 5 mg Tablet 5 mg PO Q4H PRN PRN (Reason: Pain Score 4-10) Qty: 0 0RF Xarelto 10 mg Tablet 10 mg PO DINNER Qty: 0 0RF Discontinued aspirin [Adult Aspirin Regimen] 81 mg tablet,delayed release (DR/EC) 81 mg PO DAILY Referrals / Follow Up: DULCE MORRELL [Other] Care Physician,No Primary [Non-Staff] - Disposition Disposition (needs filled in before D/C Order can be placed): Inpatient Rehab Unit/Facility
--- NOTE | 2023-12-11 16:52 | PCM.DC.SUM ---
Providers Date of Admission: 12/07/23 Date of Discharge: 12/11/23 Primary Care Physician: DULCE MORRELL Reason For Visit: HIP FRACTURE Diagnosis Discharge Diagnosis (1) Closed intertrochanteric fracture of femur: Status: Acute Code(s): S72.143A - Displaced intertrochanteric fracture of unspecified femur, initial encounter for closed fracture Plan 1. Intertrochanteric fracture of the right hip secondary to osteoporosis-postop day 3 right hip ORIF cephalic medullary nail-PT and OT continue, labs will be obtained in the morning, if she is medically stable she may be able to go over to the rehab unit at [facility]. #2 anemia-most probably secondary to blood loss from hip fracture, CBC will be monitored after surgery as needed, repeat hemoglobin today was 7.9 #3 systolic murmur-possibly secondary to mild aortic stenosis or mitral regurg-I do not feel this needs to be worked up at this time Total clinical time spent by myself addressing the patient's medical issues, reviewing all of her data, and collaborating with patient's care team: 35 minutes Medications at Discharge Home Medications acetaminophen 500 mg tablet 1,000 mg PO Q8 Pain 1-10 Or Fever 12/11/23 oxycodone 5 mg tablet 5 mg PO Q4H PRN PRN Pain Score 4-10 #0 tabs 12/11/23 rivaroxaban 10 mg tablet (Xarelto) 10 mg PO DINNER Blood thinner #0 tabs 12/11/23 Hospital Course Operations - (Right hip cephalic medullary nail insertion 12/08/2023) Procedures None Summary of Care Provided Minutes Spent on Discharge: 31 Hospital Course: This 88-year-old white female was seen in the emergency room at [facility] following a fall at home when she slid off her chair. Workup in the emergency room included a chest x-ray of the pelvis which showed a comminuted displaced fracture of the intertrochanteric region of the right proximal femur with cephalic migration of the distal fracture fragment. Labs are remarkable for an elevated white blood cell count at 17.6, blood sugar was 185. Patient was [facility], she was seen in consultation by orthopedic surgery, she underwent insertion of a cephalic medullary nail in the right femur. Patient was seen by PT and OT, she was deemed to be a good candidate to go to the rehab unit at [facility] for inpatient rehab services. Patient's blood count dropped somewhat during her hospital stay due to her fracture. She did not require blood transfusion. On 12/11/2023, patient was seen and examined: On examination she appeared in good health and spirits, she does not appear to be in any distress. Vital signs as documented. Skin warm and dry and without overt rashes. Neck without JVD, thyroid appears normal, trachea is midline, neck is supple. Lungs clear, normal air movement was noted. Heart exam notable for regular rhythm, and presence of a systolic murmur murmur at the left sternal border and apex, there were no rubs or gallops. Abdomen unremarkable and without evidence of organomegaly, masses, or abdominal aortic enlargement, bowel sounds are present in all 4 quadrants, no abdominal tenderness was noted. Extremities nonedematous, no cyanosis was noted, no clubbing was noted. Neuro: Cranial nerves II through XII are grossly intact, no focal motor deficits were noted, sensation to light touch and pinprick is intact, motor exam 5/5 throughout. Psych: Patient is alert and oriented x3, she does not appear anxious or depressed, she does not appear agitated. Patient was discharged to the rehab unit at [facility] on 12/11/2023 in stable condition Weight / BMI Weight Weight: 48.3 kg Body Mass Index (BMI) 20.7 ABG / Lab / Microbiology Data 12/11/23 11:35 12/11/23 06:07 Laboratory: Laboratory Results - last 24 hr 12/11/23 06:07: WBC 7.0, RBC 2.24 L, Hgb 7.0 L, Hct 21.6 L, MCV 96.4, MCH 31.3, MCHC 32.4, RDW Std Deviation 46.7 H, RDW Coeff of Junior 13.6, Plt Count 136 L, MPV 11.0, Immature Gran % (Auto) 0.700, Neut % (Auto) 77.3 H, Lymph % (Auto) 12.8 L, [place] % (Auto) 7.1, Eos % (Auto) 2.0, Baso % (Auto) 0.1, Absolute Neuts (auto) 5.4, Absolute Lymphs (auto) 0.89, Nucleated RBC % 0.9, Sodium 140, Potassium 3.8, Chloride 110 H, Carbon Dioxide 25.0, Anion Gap 5, BUN 16, Creatinine 0.47 L, Estim Creat Clear Calc 35.59, Est GFR (MDRD) Af Amer 163, Est GFR (MDRD) Non-Af 135, BUN/Creatinine Ratio 34.3 H, Glucose 117 H, Calcium 7.9 L 12/11/23 11:35: Hgb 7.9 L, Hct 24.4 L Meaningful Use Info Meaningful Use Meaningful Use Diagnoses (Choose all that apply): None applicable Ischemic Stroke Statin Dosing Therapy Reference: STATIN DOSE THERAPY REFERENCE: * Patients > 75 years receive moderate or high dose statin therapy. * Patients 75 years or YOUNGER should receive HIGH intensity statin dose unless contraindicated. You will be required to document reason for non-treatment if statin daily dose does not meet guidelines. HIGH DOSE STATIN THERAPY DAILY Atorvastatin > than or = to 40 mg Rosuvastatin > than or = to 20 mg Amlodipine + Atorvastatin > than or = to 2.5/40 mg Ezetimibe + Simvastatin 10/80 mg Simvastatin 80mg Discharge Plan Admission Admit Date/Time: 12/07/23 15:58 Primary Reason for Your Visit: Right hip fracture Attending Provider: Sameer Coughlin Primary Care Provider: DULCE MORRELL Consulting Providers: Rober Nava Discharge Orders/Prescriptions Prescriptions: New oxycodone 5 mg Tablet 5 mg PO Q4H PRN PRN (Reason: Pain Score 4-10) Qty: 0 0RF Xarelto 10 mg Tablet 10 mg PO DINNER Qty: 0 0RF Discontinued aspirin [Adult Aspirin Regimen] 81 mg tablet,delayed release (DR/EC) 81 mg PO DAILY No Action acetaminophen 500 mg Tablet 1,000 mg PO Q8 Referrals / Follow Up: DULCE MORRELL [Other] Care Physician,No Primary [Non-Staff] - Disposition Disposition (needs filled in before D/C Order can be placed): Inpatient Rehab Unit/Facility Charges/Coding Visit Charges Inpatient E&M: 28108 Disch Hosp >30min
[2023-12-11] MEDS: Rivaroxaban 10 MG Tablet PO (17:11)
[2023-12-11 17:13] VITALS: BP 142/83; PULSE 95; RESP 16; TEMP 36.7; O2SAT 94
--- NOTE | 2023-12-12 16:20 | CASEMGMT ---
Social Work- SW received a message from [facility] at [facility] that pt is accepted when medically ready. SW advised pt and son, Prakash, that pt has acceptance to [facility] when physician feels pt is medically ready, as labs were repeated. SW received confirmation from physician that he would be sending pt today. Pt went to room; pt is alone in room, napping. SW placed green sheet on chart for nursing to follow d/t late discharge. Bedside nurse updated that pt is discharging today and advised that green sheet placed on chart. Plan: [facility] CHAYO Quinones
== END 2023-12-11 17:47 | DRG 481 ==
LOC: ED 15:09 → MS3 15:48
PROVIDERS: Anesthesiology; Orthopaedic Surgery Sports Medicine; Admitting Provider Internal Medicine; Emergency Provider Emergency Medicine; Visit Provider Internal Medicine
PROC: 0QS606Z Reposition Right Upper Femur with Intramedullary Internal Fixation Device, Open Approach (ICD-10-PCS; principal; 2023-12-08 10:30)
DX: M80.051A Age-related osteoporosis with current pathological fracture, right femur, initial encounter for fracture (principal); D62 Acute posthemorrhagic anemia; I73.9 Peripheral vascular disease, unspecified; I35.0 Nonrheumatic aortic (valve) stenosis; S80.00XA Contusion of unspecified knee, initial encounter; W07.XXXA Fall from chair, initial encounter; Z79.82 Long term (current) use of aspirin; R01.1 Cardiac murmur, unspecified; R33.9 Retention of urine, unspecified; Y92.000 Kitchen of unspecified non-institutional (private) residence as the place of occurrence of the external cause
CPT/HCPCS: 36415; 71045; 72170; 73502; 73552; 73564; 76000; 80048; 80076; 81001; 82550; 83690; 85014; 85018; 85025; 85610; 85730; 86850; 86900; 86901; 92526; 92610; 93005; 97110; 97162; 97166; 97530; 97535; 97802; 99285; C1776; J7030; J7120; A4216; J2405

== ENCOUNTER 2023-12-11 18:00 | Inpatient (IN) | payer MEDICARE, SELFPAY ==
[2023-12-11 18:17] VITALS: BP 116/82; PULSE 99; RESP 17; TEMP 36.7; O2SAT 96; BMI 26.0
[2023-12-11 20:17] VITALS: O2SAT 98
[2023-12-11] MEDS: oxyCODONE 5 MG Tablet PO (21:22)
[2023-12-11] MEDS: Acetaminophen 500 MG Tablet 1000 MG PO (21:22)
[2023-12-11] MEDS: Senna Tablet 2 TABLET PO (21:22)
[2023-12-11 21:38] VITALS: BP 122/88; PULSE 86; RESP 16; TEMP 36.7; O2SAT 98
[2023-12-11 22:00] VITALS: PULSE 100; RESP 15; O2SAT 95
[2023-12-12 00:58] VITALS: BP 114/78; PULSE 95; RESP 16; TEMP 37; O2SAT 94
[2023-12-12] MEDS: Acetaminophen 500 MG Tablet 1000 MG PO ×3 (05:13→20:37)
[2023-12-12 05:15] LABS: Hematocrit 23.8 % (37-47); Hemoglobin 7.6 g/dL (12.0-15.0); Mean Corp Hgb Conc 31.9 g/dL (32-36); Mean Corpuscular Hgb 30.8 pg (27.0-32.0); Mean Corpuscular Volume 96.4 fL (81-99); Mean Platelet Vol. 10.7 fl (6.2-12.0); Platelet Count 146 K/mm3 (150-450); RBC Distribution Width CV 13.8 % (11.6-14.6); RBC Distribution Width SD 46.3 fl (35.1-43.9); Red Blood Count 2.47 M/mm3 (4.2-5.4); White Blood Count 7.7 K/mm3 (4.4-11.0)
[2023-12-12 06:18] LABS: AST(SGOT) 29 U/L (15-37); Alanine Aminotransfer ALT/SGPT 27 U/L (13-56); Albumin, Serum 2.3 g/dL (3.2-5.0); Alkaline Phosphatase 56 U/L (45-117); Anion Gap 6 (5-15); BUN 16 mg/dL (7-18); BUN/Creat Ratio 25.5 RATIO (10-20); Calcium,Total 7.8 mg/dL (8.5-10.1); Chloride 106 mmol/L (98-107); Creatinine, Serum 0.63 mg/dL (0.55-1.02); EST Glomerular Filtration Rate 95 mL/min (>60); Est Glom Filt Rate - Afr Amer 115 mL/min (>60); Estimated Creatinine Clearance 40.15 ml/min; Globulin 2.4 g/dL (2.2-4.2); Glucose 116 mg/dL (74-106); Magnesium 1.5 mg/dL (1.6-2.6); Phosphorus 2.2 mg/dL (2.5-4.9); Potassium 3.7 mmol/L (3.5-5.1); Protein, Total 4.7 g/dL (6.4-8.2); Sodium Level 138 mmol/L (136-145)
[2023-12-12 07:43] VITALS: BP 107/66; PULSE 82; RESP 16; TEMP 36.6; O2SAT 96
[2023-12-12] MEDS: Senna Tablet 2 TABLET PO ×2 (08:30→20:36)
[2023-12-12 08:32] VITALS: O2SAT 96
[2023-12-12] MEDS: Menthol/Lanolin/Calamine/Znox 113 GM Tube 1 APPLIC TOPICAL ×2 (08:32→20:37)
--- NOTE | 2023-12-12 09:30 | HP.PCM_ITS ---
[facility] - General General Date of Admission: 12/11/23 Date of Service: 12/12/23 Chief Complaint: Debility due to hip fracture. [facility] Narrative YEIMY PANIAGUA, is a 88 YO F with a PMH of GERD/hiatal hernia (on no RX medications at the time of admission to the hospital) who presented to the ED at [facility] on 12/07/2023 following a mechanical fall from her chair at home. She denied syncope and also denied lightheadedness. She lives alone. Plain x-ray of the pelvis at admission showed a comminuted displaced fracture of the intertrochanteric region of the proximal right femur with cephalic migration of the distal fracture fragment. She was admitted to the hospitalist service. Consult was obtained with Dr. Soni and she was taken to surgery on 12/08/2023 for open reduction internal fixation with a cephalomedullary nail. Postoperative complications included acute blood loss anemia and urine retention for which she had Gomez catheter. Hemoglobin on 12/07/2023 was 13 and on 12/11/2023 was 7.0. A recheck later in the day showed a hemoglobin of 7.9. UA on 12/10/2023 showed 0-5 WBCs and was nitrite negative. There was 2+ bacteria present. I suspect this was a clean-catch in an 88-year-old with an acute hip fracture which is unlikely to be clean at all. She was transferred to the acute inpatient rehab unit at [facility] on 12/11/2023 for 3 hours of therapy daily to restore independence/function at or near her level prior to the recent fall. She is taking Xarelto 10 mg daily for DVT prophylaxis. She reportedly has a history of hypertension however she is not on any antihypertensives. Oxycodone 5 mg every 4 hours was ordered for pain control. All lab drawn this morning was personally reviewed. Hemoglobin is stable at 7.6. The WBC count is normal and platelets are mildly decreased at 146,000 which is up from 136,000 yesterday. The platelet count was normal at admission to the hospital. She has normochromic normocytic indices. Sodium is 138 and the potassium is 3.7. The BUN is 16 with a creatinine of 0.63. Fasting glucose has been elevated and today is 116. Phosphorus is low at 2.2 and the magnesium is low at 1.5. Bilirubin is elevated at 1.4 but the other LFTs are within normal limits. No postvoid residuals have been done yet. She is taking 75 to 100% of her diet. Blood pressure and heart rate are within normal limits. She is maintaining appropriate oxygen saturation on room air. The notes from the hospitalist say she was to be started on Flomax but, she is not on Flomax at the time of transfer. She had a very large BM today. The Oxycodone may be contributing to urine retention. Weight is up 26 pounds from admission to the hospital. in October of rectal CA. She also told me a few times that her dtr 17 years ago of a brain tumor. She has been not eating and losing wt since her passed and she also c/o that she is up several times a night and has had a hard time sleeping. They were 64 years. [facility] Medical History (Updated 12/12/23 @ 12:[address] Courtney Pierre DO) Hiatal hernia GERD (gastroesophageal reflux disease) Non-smoker Irregular heart beat Home Medications ?Medication ?Instructions ?Recorded ?Last Taken ?Type acetaminophen 500 mg tablet 1,000 mg PO Q8 Pain 1-10 Or Fever 12/11/23 12/11/23 History oxycodone 5 mg tablet 5 mg PO Q4H PRN PRN Pain Score 12/11/23 12/11/23 Rx 4-10 #0 tabs rivaroxaban 10 mg tablet (Xarelto) 10 mg PO DINNER Blood thinner #0 12/11/23 12/10/23 Rx tabs Allergy/AdvReac Type Severity Reaction Status Date / Time No Known Allergies Allergy Verified 12/07/23 14:01 Family History (Updated 12/12/23 @ 12:[address] Courtney Pierre DO) Daughter , brain tumor Cancer Mother Diabetes Surgical History (Updated 12/12/23 @ 11:[address] Courtney Pierre DO) Hx of cholecystectomy Social History (Updated 12/12/23 @ 12:[address] Courtney Pierre DO) household members: none housing: house number of children: 3 Smoking Status: Never smoker alcohol intake: never substance use type: does not use ROS Constitutional Constitutional: Reports anorexia, change in weight, difficulty sleeping, poor appetite and weakness; Denies chills, fatigue, fever(s) or night sweats Eyes Eyes: Denies blurry vision, change in vision, eye pain or loss of vision ENT HEENT: Denies abnormal hearing, dysphagia, headache(s), hearing loss, nasal congestion or sore throat Cardiovascular Cardiovascular: Reports edema; Denies chest pain, dyspnea on exertion, lightheadedness, orthopnea, palpitations, paroxysmal nocturnal dyspnea or syncope Respiratory/Chest Respiratory/Chest: Denies cough, dyspnea, shortness of breath at rest, shortness of breath with exertion or wheezing Gastrointestinal Gastrointestinal: Denies abdominal pain, constipation, diarrhea, dyspepsia, hematemesis, hematochezia, nausea or vomiting Genitourinary Genitourinary: Reports other Details: urine retention ; Denies dysuria, hematuria, nocturia, urinary frequency, urinary hesitancy, urinary incontinence or urinary urgency Musculoskeletal Musculoskeletal: Denies back pain, joint pain, joint swelling or neck pain Neurologic Neurologic: Denies confusion, disequilibrium, dizziness, focal weakness, headache(s), paresthesias, seizures or tremor(s) Psychiatric Psychiatric: Reports anhedonia, change in appetite and depression; Denies anxiety, homicidal ideation, suicidal ideation or visual hallucinations Endocrine Endocrinology: Reports change in body appearance; Denies polydipsia or polyuria Hematologic/Lymphatic Hematologic/Lymphatic: Denies easy bleeding, easy bruising or lymphadenopathy Allergic/Immunologic Allergic/Immunologic: Denies rhinitis, eczemia or asthma Vital Signs Vital Signs Vital Signs: 12/11/23 18:17 12/11/23 20:17 12/11/23 21:38 Temperature 98.1 F 98.0 F Temperature Source Temporal Temporal Pulse Rate 99 86 Pulse Strength Respiratory Rate 17 16 Respiratory Effort Respiratory Depth Respiratory Pattern Blood Pressure 116/82 H 122/88 H Blood Pressure Mean 93 99 Blood Pressure Source Monitor Monitor Blood Pressure Position Sitting Semi-Fowlers Blood Pressure Location Right Arm Right Arm Pulse Ox 96 98 98 Oxygen Delivery Method Room Air Room Air Room Air 12/11/23 22:00 12/12/23 00:58 12/12/23 07:43 Temperature 98.6 F 97.8 F Temperature Source Temporal Temporal Pulse Rate 100 95 82 Pulse Strength Respiratory Rate 15 16 16 Respiratory Effort Normal Non-Labored Respiratory Depth Normal Respiratory Pattern Normal Blood Pressure 114/78 107/66 Blood Pressure Mean 90 79 Blood Pressure Source Monitor Blood Pressure Position Semi-Fowlers Blood Pressure Location Right Arm Pulse Ox 95 94 96 Oxygen Delivery Method Room Air Room Air Room Air 12/12/23 08:32 12/12/23 09:25 Temperature Temperature Source Pulse Rate Pulse Strength Normal (2+) Respiratory Rate Respiratory Effort Respiratory Depth Respiratory Pattern Blood Pressure Blood Pressure Mean Blood Pressure Source Blood Pressure Position Blood Pressure Location Pulse Ox 96 Oxygen Delivery Method Room Air Weight Weight: 132 lb 8 oz Body Mass Index (BMI) 26.0 Physical Exam Const alert, oriented x3 and no apparent distress Constitutional Narrative: Sitting in the recliner at the bedside. Very pleasant and talkative. Makes good eye contact with me when we are talking. General Appearance: cooperative and well kempt HEENT normocephalic and head/scalp atraumatic HEENT Narrative: Mucous membranes are very dry. No evidence of thrush. She has a few missing teeth. Seems to hear pretty well and she does not have hearing aids. I did not have to repeat myself. Eyes EOMs intact bilaterally, conjunctivae normal and no scleral icterus Eyes Narrative: No discharge from the eyes and no mattering of the eyelashes. Palpebral conjunctiva is very pale. Neck supple Neck Narrative: Bilateral carotid bruits versus radiation of murmur. Chest Chest: symmetrical chest wall rise Resp normal respiratory effort, normal air movement and clear to auscultation bilaterally Effort and Inspection: able to speak in complete sentences Cardio regular rate, regular rhythm, S1 normal heart sound, S2 normal heart sound and no rub Cardio Narrative: She has a harsh systolic murmur at the second right intercostal space with radiation to the left ventricular outflow tract, lower left sternal border, apex and into the left axilla. Cannot assess for JVD since she is sitting upright in the chair. Carotids have a brisk upstroke with good pulse volume. She denies ever being told she had a heart murmur. GI normal to inspection, nondistended, normoactive bowel sounds, soft to palpation and non-tender GI Narrative: No guarding with palpation. Had a large bowel movement today. Prior to that she was having occasional small bowel movements. Admits to not eating or drinking much lately since her in October. Bladder / Kidney Exam: catheter in place urethral (She came to us with a Gomez catheter. The urine in the Gomez bag is clear but it is dark mckenna in color.) Back/Spine Back/Spine Narrative: She is kyphotic. She is not taking a calcium supplement or vitamin D. Extremity no calf tenderness Extremity Narrative: She has 4+ pitting edema of both lower extremities with pitting in both posterior thighs in addition to the ankles and pretibial areas. Skin Rashes: no rashes Neuro oriented x3, CN's II-XII intact bilaterally, moves all extremities and no focal motor deficits Psych mental status grossly normal, thought process normal, cooperative and speech normal Psych Narrative: She is pleasant and talkative but, she offered up that she has been depressed, not eating, losing weight and not sleeping. Appearance: grossly normal, appropriate and well kempt Attitude: engaged Results Lab / Micro Data 12/12/23 05:08 12/12/23 05:08 Labs: Laboratory Results - last 24 hr 12/12/23 05:08: WBC 7.7, RBC 2.47 L, Hgb 7.6 L, Hct 23.8 L, MCV 96.4, MCH 30.8, MCHC 31.9 L, RDW Std Deviation 46.3 H, RDW Coeff of Junior 13.8, Plt Count 146 L, MPV 10.7, Sodium 138, Potassium 3.7, Chloride 106, Carbon Dioxide 26.0, Anion Gap 6, BUN 16, Creatinine 0.63, Estim Creat Clear Calc 40.15, Est GFR (MDRD) Af Amer 115, Est GFR (MDRD) Non-Af 95, BUN/Creatinine Ratio 25.5 H, Glucose 116 H, Calcium 7.8 L, Phosphorus 2.2 L, Magnesium 1.5 L, Total Bilirubin 1.40 H, AST 29, ALT 27, Alkaline Phosphatase 56, Total Protein 4.7 L, Albumin 2.3 L, Globulin 2.4, Albumin/Globulin Ratio 1.0 Assessment & Plan Assessment/Plan (1) Debility: (2) Fall: QUALIFIERS: Encounter type: subsequent encounter Qualified Code(s): W19.XXXD - Unspecified fall, subsequent encounter (3) Closed intertrochanteric fracture of femur: QUALIFIERS: Encounter type: subsequent encounter Fracture alignment: displaced Laterality: right Fracture healing: with routine healing Qualified Code(s): S72.141D - Displaced intertrochanteric fracture of right femur, subsequent encounter for closed fracture with routine healing (4) Status post open reduction and internal fixation (ORIF) of fracture: (5) Acute anemia: (6) Hypophosphatemia: (7) Hypomagnesemia: (8) Urinary retention: (9) Heart murmur on physical examination: (10) Peripheral edema: (11) Hiatal hernia: (12) GERD (gastroesophageal reflux disease): QUALIFIERS: Esophagitis presence: esophagitis presence not specified Qualified Code(s): K21.9 - Gastro-esophageal reflux disease without esophagitis PLAN: Plan PLAN PT for gait stability OT for ADL's Analgesics as needed - schedule Tylenol 1 GM Q 8 Hours. DC Oxycodone and start Tramadol 25 mg Q 6H PRN pain 4-10. Bowel protocol Fall precautions Assess for Anxiety/Depression GI prophylaxis -Protonix 20 mg p.o. twice daily DVT prophylaxis with Xarelto 10 mg daily Follow up with PCP and Dr. Soni following DC from IP Rehab AM lab including CMP, CBC, Mag and Phos-all personally reviewed Check a BNP and vitamin D level today TTE for heart MM with pitting edema to the upper thighs BL - suspect Recheck BMP, CBC, mag and phos Sunday Supplement MAG and PHOS Start Remeron 7.5 mg at 9 PM daily Charges/Coding Visit Charges Inpatient E&M: 15907 Init Hosp L2
--- NOTE | 2023-12-12 11:09 | ECHOD_ITS ---
Reason For Study: MURMUR Procedure This was a 2D Doppler, Color Flow transthoracic echocardiogram. The study was technically difficult. Exam performed portable in patient room. Left Ventricle Normal LV size. Mild concentric left ventricular hypertrophy. Left ventricular systolic function is normal. The estimated ejection fraction is 55 %. Stage 1 diastolic dysfunction. No regional wall motion abnormalities noted. Right Ventricle Normal RV size. Normal systolic function. Atria Normal left atrium. Normal right atrium. Mitral Valve There is mild to moderate mitral annular calcification. Mild-Moderate (1-2+) eccentric mitral valve insufficiency. Tricuspid Valve Normal tricuspid valve. Mild (1+) tricuspid valve insufficiency. Pulmonary artery systolic pressure is 30 mmHg. Aortic Valve Trisinus/trileaflet aortic valve. Moderate focal aortic valve calcification. Peak aortic valve gradient 100 mmHg. Mean aortic valve gradient 71 mmHg. Critical aortic stenosis. Pulmonic Valve The pulmonic valve is not well visualized. Great Vessels Calcified aortic root. The pulmonary artery is normal size. Inferior vena cava collapse with respiration. Pericardium/Pleural No pericardial effusion. MMode/2D Measurements & Calculations LVIDd: 2.6 cm IVSd: 1.5 cm LVOT diam: 1.8 cm LVIDs: 1.8 cm LVPWd: 1.2 cm LVOT area: 2.7 cm2 RVDd: 3.3 cm FS: 30.5 % Ao root diam: 3.0 cm LAV(MOD-sp4): 36.0 ml LVAd ap4: 14.0 cm2 LVLd ap4: 5.6 cm EDV(MOD-sp4): 29.3 ml EDV(sp4-el): 29.4 ml LVAs ap4: 8.3 cm2 LVLs ap4: 4.7 cm ESV(MOD-sp4): 12.6 ml ESV(sp4-el): 12.3 ml EF(MOD-sp4): 56.9 % EF(sp4-el): 58.2 % LVAd ap2: 17.3 cm2 SV(MOD-sp4): 16.7 ml SV(MOD-sp2): 23.6 ml LVLd ap2: 6.9 cm EDV(MOD-sp2): 34.9 ml EDV(sp2-el): 36.5 ml LVAs ap2: 8.6 cm2 LVLs ap2: 5.3 cm ESV(MOD-sp2): 11.3 ml ESV(sp2-el): 11.8 ml EF(MOD-sp2): 67.6 % SV(sp4-el): 17.1 ml LA dimension(2D): 3.3 cm LA A4 area: 15.3 cm2 RA A4 area: 10.8 cm2 Time Measurements MV dec time: 0.44 sec Doppler Measurements & Calculations MV E max brad: 73.3 cm/sec Lat Peak E' Brad: 5.1 cm/sec Med Peak E' Brad: 4.2 cm/sec MV A max brad: 159.9 cm/sec E/E' lat: 14.3 E/E' med: 17.4 MV E/A: 0.46 MV V2 max: 169.5 cm/sec Ao V2 max: 498.7 cm/sec MV max P.5 mmHg MV dec slope: 181.4 cm/sec2 Ao max P.5 mmHg MV V2 mean: 86.0 cm/sec Ao V2 mean: 412.5 cm/sec MV mean P.5 mmHg Ao mean P.0 mmHg MV V2 VTI: 32.2 cm Ao V2 VTI: 105.9 cm AV (velocity ratio): 0.18 MVA(VTI): 1.6 cm2 SOHA(I,D): 0.48 cm2 SOHA(V,D): 0.44 cm2 LV V1 max: 82.1 cm/sec SV(LVOT): 50.7 ml PA V2 max: 127.6 cm/sec LV V1 max P.7 mmHg LV V1 mean P.6 mmHg LV V1 mean: 61.5 cm/sec LV V1 VTI: 18.9 cm TR max brad: 252.8 cm/sec TR max P.6 mmHg ECHO/Echo Complete Interpretation Summary Normal LV size. Left ventricular systolic function is normal. The estimated ejection fraction is 55 %. Stage 1 diastolic dysfunction. Mean aortic valve gradient 71 mmHg. Pulmonary artery systolic pressure is 30 mmHg. There is mild to moderate mitral annular calcification. Mild-Moderate (1-2+) eccentric mitral valve insufficiency. Critical aortic stenosis. Ordering Physician: Courtney Pierre Referring Physician: N/A Performed By: Inessa Field RDCS
--- NOTE | 2023-12-12 11:19 | RAD_ITS ---
STUDY: X-RAY - ABDOMEN/PELVIS REASON FOR EXAM: Female, 88 years old. Severe constipation. TECHNIQUE: Single AP view of the abdomen / pelvis. COMPARISON: None. FINDINGS: Left pleural thickening/pleural effusion. Normal bowel gas pattern with air seen to the rectum. Moderate to marked amount of feces in the colon. Intra-abdominal outlines obscured by gas and feces. Vascular calcification. Right dynamic hip screw. Multiple anterior wedge compression deformities of the lumbar spine, age indeterminate. RAD/Abdomen Single View IMPRESSION: Moderate amount of feces in the colon which may represent constipation. No acute abnormality identified. Electronically Signed: Anand Wilson MD at 13:35 EDT ,
[2023-12-12 11:48] LABS: BNP,B-Type NATRIURETIC PEPTIDE 1063.6 pg/mL (0-100)
--- NOTE | 2023-12-12 12:49 | REHABEVAL_ITS ---
Admission Information Primary Diagnosis:: Debility due to R hip fx/ORIF Status Changes from Prescreening?: Medical (Has gained 26 lbs in the hospital and has pitting edema to the upper thighs BL) Actual Problem List:: Falls, Skin Intergrity, Pain, ALteration in Cmfrt, Depression, Bowel, Incontinence, Alteration in Sleep, Mobility Impaired, Self Care Deficit, Fluid Overload r/t CHF and Alteration-Leisure Activ. Potential Problem List:: DVT, Bleeding, Infection, UTI, Aspiration, Falls, Skin Integrity and Depression Risk of Complications DVT: CLARISSA Hose (BL thigh high) and - (Xarelto) Bleeding: Monitor Lab Values, Nursing to Teach Precautions for anti-coagulation therapy., Wound, if applicable, to be assessed every shift. and Stroke patients assessed for lethargy or change in status. Infection: Clinical Staff to Monitor for S/S of infection: and S/S of infection include fever, redness, warmth, etc. Urinary Tract Infection: Monitor for frequency, burning, discomfort, or incontinence. and Nursing will obtain urine sample for urinalysis and C&S when ordered. Aspiration: Clinical staff will monitor for coughing, drooling, congestion., Speech will evaluate swallowing and dsyphasia. and Nursing will monitor patient swallowing during meals. Falls: Patient will be evaluated for Fall Precautions and Patient will be placed on Fall Precautions as indicated per protocol. Skin Breakdown: Nursing will assess skin daily using assessment tool. and Nursing will place on Skin Breakdown Precautions as indicated. Pain: Clinical staff will assess patient's pain level per protocol., Medications will be given, if needed, and the pain level reassessed. and Other methods: Massage, distraction, decrease stimulus, etc. used PRN. Plan of Care Patient requires physician specializing in physical medicine and rehab oversight to provide close medical supervision of rehab issues including: Pain Management, Sleep Problems, Bowel and Bladder, Medical and co-morbidity Management, DVT prophylaxis, Rehabilitation Leadership and Coordination of treatment team Patient needs Physical Therapy: For a minimum of 1 hour and At least 5 out of 7 days Patient needs Physical Therapy to improve:: Mobility, Strengthening, Transfers, Stretching, ROM, Endurance, Stairs, Gait and Balance Patient needs Occupational Therapy: For a minimum of 1 hour and At least 5 out of 7 days Patient needs Occupational Therapy to improve ADL's incl.: Eating, Grooming, Bathing, Dressing, Toileting, Toilet transfers, Community Reintegration, Higher functioning activities, Household tasks, Adaptive Equipment, Splinting and Other activities as determined Patient requires 24/7 Rehabilitation Nursing for: Pain Issues, Identifying and preventing risk factors, Monitoring and reporting current medical conditions, Assisting with ambulation, transfer, and all ADL's, Teaching patients about disease process and medications, Family teaching, Providing safe environment, Bowel and Bladder Issues, Skin integrity and Medication Management Patient needs Chief Catalyst Operator/ Case Management for: Discharge Planning, Arranging Home Equipment or Services and Family Interventions Patient needs Dietary and Nutrition Services for: Adequate Nutrition, Nutritional Supplements and Nutritional Education Goals Goals Patient will remain: free from falls Patient will perform eating at: MOD I level of assist. Patient will perform bed mobility at: MOD I level of assist. Patient will complete transfers from bed to chair at: Standby Assist. Patient will ambulate: 100 feet (with a WW on various surfaces at KAVITHA) and - Patient will complete upper body dressing at: MOD I level of assist. Patient will complete lower body dressing at: MOD I level of assist. (with AE as needed to increase independence) Patient will complete toilet transfer at: MOD I level of assist. Patient will complete toileting at: MOD I level of assist. Patient will perform bathing at: MOD I level of assist. Patient will perform Tub/Shower transfer at: - (supervision for the first 1-2 weeks post DC) Patient will complete grooming at: MOD I level of assist. Patient will complete home management skills at: - (simple meal task at MOD I) Patient will achieve: - (3 steps with 2 hand rails at CGA) Patient will have pain level of: of 3 or less Patient's skin will: remain intact Patient will receive: adequate nutrition. Discharge Planning Pt Prognosis for Sig. Practical Improv. w/in Reasonable Time: Good Estimated Length of stay (days): 21 Anticipated D/C Destination: Home w/ family or friends (and with C initially)
[2023-12-12 13:01] LABS: Vitamin D,25 Hydroxy 43.6 ng/mL
[2023-12-12] MEDS: Magnesium Chloride 64 MG Delay Rel.Tablet 128 MG PO (14:14)
[2023-12-12] MEDS: Na Biphos/Potassium Phosphate PACKET 1 PACKET PO ×2 (14:15→20:37)
[2023-12-12] MEDS: Bisacodyl 10 MG Suppository RC (16:42)
[2023-12-12] MEDS: Magnesium Hydroxide 30 ML UDC PO (16:43)
[2023-12-12] MEDS: Furosemide 40 MG Tablet PO (17:47)
[2023-12-12] MEDS: Potassium Chloride Oral Tablet 20 MEQ 40 MEQ PO (17:47)
[2023-12-12] MEDS: Rivaroxaban 10 MG Tablet PO (17:48)
[2023-12-12 19:00] VITALS: BP 122/58; PULSE 78; RESP 16; TEMP 36.4; O2SAT 97
[2023-12-12 20:35] VITALS: RESP 16; O2SAT 97; BMI 26.0
[2023-12-12] MEDS: Mirtazapine 15 MG Tablet 7.5 MG PO (20:36)
[2023-12-12] MEDS: Pantoprazole Sodium 20 MG Tablet PO (20:37)
[2023-12-13] MEDS: traMADol 50 MG Tablet 25 MG PO ×2 (05:38→11:38)
[2023-12-13] MEDS: Na Biphos/Potassium Phosphate PACKET 1 PACKET PO ×3 (05:39→21:18)
[2023-12-13] MEDS: Acetaminophen 500 MG Tablet 1000 MG PO ×3 (05:39→21:18)
[2023-12-13 06:00] VITALS: BMI 25.7
[2023-12-13 07:40] VITALS: BP 144/72; PULSE 86; RESP 16; TEMP 36.6; O2SAT 100
[2023-12-13] MEDS: Senna Tablet 2 TABLET PO ×2 (08:12→21:18)
[2023-12-13] MEDS: Magnesium Chloride 64 MG Delay Rel.Tablet 128 MG PO (08:12)
[2023-12-13] MEDS: Menthol/Lanolin/Calamine/Znox 113 GM Tube 1 APPLIC TOPICAL ×2 (08:13→21:18)
[2023-12-13] MEDS: Pantoprazole Sodium 20 MG Tablet PO ×2 (08:13→21:18)
--- NOTE | 2023-12-13 08:54 | PN_ITS ---
Subjective Subjective And was seen on team rounds today. Her son Prakash was present in the room for rounds. Afebrile VSS -blood pressures since yesterday a.m. have ranged from 107/66 to 144/72. Maintaining appropriate oxygen saturation on RA Oral intake - FOOD good FLUIDS poor Fluid balance overnight was -1298. She received 40 mg of p.o. Lasix. Weight today is down 1lb and 5 oz since yesterday. Discussed with nursing - no problems that need addressed. Had not been eating at home but, she is taking 75-100% of her meals on rehab. Reviewed the THERAPY notes Medication list reviewed. Hemoglobin A1c is 5.0. BNP was 1063 yesterday. I reviewed the echocardiogram report. The EF is 55% with mild left ventricular hypertrophy and stage I diastolic dysfunction. There were no regional wall motion abnormalities. Right ventricle is normal and atria are most of normal size. There was mild to moderate mitral valve insufficiency. No significant results after MOM and a Dulcolax supp yesterday. Today she had a smear only. Stool was heme-negative. The KUB done yesterday showed a moderate- large amount of stool throughout the colon with an unremarkable gas pattern. There were multiple anterior wedge compression deformities of the lumbar spine. There was left pleural thickening with an effusion on the left. Vitamin D level was normal at 43.6. Calcium is low at 7.8 but when corrected for hypoalbuminemia is within normal limits at 9.2. Nikki denies SOB, CP, palpitations, N/V, suprapubic pain, calf pain. Objective Data Objective Data Vital Signs: Vital Signs Temp Pulse Resp BP Pulse Ox O2 Del Method 97.8 F 86 16 144/72 H 100 Room Air 12/13/23 07:40 12/13/23 07:40 12/13/23 07:40 12/13/23 07:40 12/13/23 07:40 12/13/23 07:40 Oxygen Delivery Method Room Air Weight: 131 lb 2.801 oz Body Mass Index (BMI) 25.7 Intake & Output: Intake and Output for Last 24 Hours 12/11/23 12/12/23 12/13/23 23:59 23:59 23:59 Intake Total 200 / 200 750 / 750 360 / 360 Output Total 200 / 200 500 / 500 1650 / 1650 Balance 0 / 0 250 / 250 -1290 / -1290 Lab / Micro Data 12/14/23 04:58 12/14/23 04:58 Labs: Laboratory Results - last 24 hr 12/12/23 05:08: B-Natriuretic Peptide 1063.6 H, Vitamin D 25-Hydroxy 43.6 12/12/23 16:54: Hemoglobin A1c 5.0 Micro: Microbiology 12/12/23 14:56 Stool Stool Occult Blood ([facility]) - Final Radiography Diagnostic Testing: Radiology Impression Echocardiogram 12/12/23 11:09 Interpretation Summary Normal LV size. Left ventricular systolic function is normal. The estimated ejection fraction is 55 %. Stage 1 diastolic dysfunction. Mean aortic valve gradient 71 mmHg. Pulmonary artery systolic pressure is 30 mmHg. There is mild to moderate mitral annular calcification. Mild-Moderate (1-2+) eccentric mitral valve insufficiency. Critical aortic stenosis. Ordering Physician: Courtney Pierre Referring Physician: N/A Performed By: Inessa Field [facility] X-Ray 12/12/23 11:19 IMPRESSION: Moderate amount of feces in the colon which may represent constipation. No acute abnormality identified. Electronically Signed: Anand Wilson MD at 13:35 EDT , Physical Exam Const alert and no apparent distress Constitutional Narrative: Pleasant and talkative. Very outgoing and interacting with staff well. She had some confusion early this morning but, reoriented easily. General Appearance: cooperative Resp normal respiratory effort Resp Narrative: Has some crackles in the bases that do not clear after a few deep breaths. Effort and Inspection: Negative for tachypneic or labored Cardio regular rate and regular rhythm Cardio Narrative: No change in the MM. Denies having rheumatic fever as a child. No ectopy today GI normal to inspection, nondistended, normoactive bowel sounds and soft to palpation GI Narrative: No guarding with palpation. Rectal - good sphincter tone. No stool in the rectal vault......smear on the examining finger is brown. No masses. Extremity Extremity Narrative: Still with 4+ edema in the LE's to the groin. Skin Rashes: no rashes Wound Narrative: The bandage appears to have a lot of serosanguineous drainage. there is no erythema around the bandage. Resolving ecchymosis is present. Neuro CN's II-XII intact bilaterally and no focal motor deficits Psych Appearance: appropriate Attitude: No agitated Assessment & Plan Assessment/Plan (1) Critical aortic valve stenosis: PLAN: Nonrheumatic. (2) Acute diastolic (congestive) heart failure: PLAN: Secondary to critical aortic valve stenosis and fluid overload. (3) Debility: (4) Fall: QUALIFIERS: Encounter type: subsequent encounter Qualified Code(s): W19.XXXD - Unspecified fall, subsequent encounter (5) Closed intertrochanteric fracture of femur: QUALIFIERS: Encounter type: subsequent encounter Fracture alignment: displaced Fracture healing: with routine healing Laterality: right Qualified Code(s): S72.141D - Displaced intertrochanteric fracture of right femur, subsequent encounter for closed fracture with routine healing (6) Status post open reduction and internal fixation (ORIF) of fracture: (7) Acute anemia: (8) Hypophosphatemia: (9) Hypomagnesemia: (10) Urinary retention: (11) Peripheral edema: (12) Hiatal hernia: (13) GERD (gastroesophageal reflux disease): QUALIFIERS: Esophagitis presence: esophagitis presence not specified Qualified Code(s): K21.9 - Gastro-esophageal reflux disease without esophagitis (14) Mitral valve insufficiency: QUALIFIERS: Cardiac valve disease etiology: nonrheumatic Q ualified Code(s): I34.0 - Nonrheumatic mitral (valve) insufficiency PLAN: Plan 1. Continue therapy 2. Lasix 40 mg IV now 3. Start Cozaar 25 mg p.o. daily 4. Start Aldactone 25 mg daily 5. BMP, CBC, mag and Phos ordered for the a.m. 6. check a PTHIN 7. PA and LAT CXR today. 8. She is not impacted on rectal exam. She has moderate-large feces throughout the colon. Mag citrate ordered and will give a Dulcolax supp in 4 hours after the mag citrate. Charges/Coding Visit Charges Inpatient E&M: 29710 Subs Hosp L2
[2023-12-13] MEDS: Furosemide 40 MG/4 ML Vial IV ×2 (10:57→18:22)
[2023-12-13] MEDS: Losartan Potassium 25 MG Tablet PO (11:29)
[2023-12-13] MEDS: Spironolactone 25 MG Tablet PO (11:29)
--- NOTE | 2023-12-13 11:45 | RAD_ITS ---
STUDY: X-RAY CHEST REASON FOR EXAM: Female, 88 years old. CHF/left neural effusion TECHNIQUE: Single AP portable view of the chest. COMPARISON: Comparison is made with prior study dated December 07, 2023. FINDINGS: Stable elevation of the left hemidiaphragm with atelectasis and/or scarring at the left lung base. There is no demonstrated pleural abnormality. Normal size heart. Normal mediastinum and amber. Normal visualized pulmonary arteries. There is atherosclerotic calcification of the aortic arch with tortuosity. There are diffuse degenerative changes of the visualized thoracic spine. Normal visualized ribs, clavicles, and shoulders. There is no demonstrated abnormality of the visualized soft tissue structures of the upper abdomen. RAD/Chest 1 View IMPRESSION: Stable elevation of the left hemidiaphragm with the scarring and/or atelectasis at the left lung base. Electronically Signed: Errol Castro MD at 15:25 EDT ,
[2023-12-13 12:28] VITALS: O2SAT 100
--- NOTE | 2023-12-13 13:16 | CASEMGMT ---
Social Work Team meeting held today with pt and pts son Prakash present. PT/OT/ST/nursing updated pt on progress with therapy. Pt is participating with therapy and requiring mod-max A x2 for transfers and using the parallel bars for ambulation. SW updated pt and son of Medicare benefit. SW will update when length of stay is determined. At discharge, pt plans to go to her son Xavier's home that is one story and pt's granddgt works from home and will be able to assist as needed. Treatment plan to continue at this time and will reteam next week. CHAYO Hardin
[2023-12-13] MEDS: Magnesium Citrate 300 ML PO (14:15)
--- NOTE | 2023-12-13 16:12 | CHAPLAIN ---
Type of Pastoral Visit ___ Initial Visit _x__ Follow-up Visit ___ On-call Visit ___ General Patient Visit ___ Spiritual Assessment ___ Family Conference ___ Bereavement ___ Rapid Response ___ Code Blue ___ Other (describe below) Pastoral Care Referral From _x__ Patient ___ Family ___ Nurse ___ Physician ___ Forest Pathologist ___ Hardware Designer ___ Other (describe below) Sacrament/Intervention _x__ Active listening ___ Anointing ___ Church ___ Bereavement ___ Communion ___ Sarah exploration ___ ___ Life review _x__ Prayer ___ Reconciliation ___ Sacrament of Sick ___ Supportive presence ___ Wedding ___ Other (describe below) Pastoral Comments patient had been watching sports on TV and talked briefly about that; pt reports on therapy and that's why I'm here to get better; pt speaks of some of the same things as discussed in previous visit a few days ago; pt is pleasant and gives credit to God and family for good things; pt requests a prayer for support today
[2023-12-13] MEDS: Rivaroxaban 10 MG Tablet PO (17:01)
[2023-12-13] MEDS: 0.9% Saline Lock 10 ML Syringe IV (18:22)
[2023-12-13 20:00] VITALS: BP 111/57; PULSE 80; RESP 16; TEMP 36.4; O2SAT 98
[2023-12-13] MEDS: Bisacodyl 10 MG Suppository RC (20:23)
[2023-12-13] MEDS: Mirtazapine 15 MG Tablet 7.5 MG PO (21:18)
[2023-12-14 05:07] LABS: Hematocrit 26.4 % (37-47); Hemoglobin 8.4 g/dL (12.0-15.0); Mean Corp Hgb Conc 31.8 g/dL (32-36); Mean Corpuscular Hgb 31.6 pg (27.0-32.0); Mean Corpuscular Volume 99.2 fL (81-99); Mean Platelet Vol. 10.4 fl (6.2-12.0); Platelet Count 152 K/mm3 (150-450); RBC Distribution Width CV 17.5 % (11.6-14.6); RBC Distribution Width SD 50.7 fl (35.1-43.9); Red Blood Count 2.66 M/mm3 (4.2-5.4); White Blood Count 10.7 K/mm3 (4.4-11.0)
[2023-12-14] MEDS: Acetaminophen 500 MG Tablet 1000 MG PO ×3 (06:18→21:34)
[2023-12-14] MEDS: traMADol 50 MG Tablet 25 MG PO ×3 (06:18→21:39)
[2023-12-14] MEDS: Na Biphos/Potassium Phosphate PACKET 1 PACKET PO ×3 (06:18→21:33)
[2023-12-14 06:25] VITALS: BMI 25.7
[2023-12-14 06:31] LABS: Anion Gap 4 (5-15); BUN 19 mg/dL (7-18); BUN/Creat Ratio 25.4 RATIO (10-20); Calcium,Total 8.2 mg/dL (8.5-10.1); Chloride 101 mmol/L (98-107); Creatinine, Serum 0.75 mg/dL (0.55-1.02); EST Glomerular Filtration Rate 78 mL/min (>60); Est Glom Filt Rate - Afr Amer 94 mL/min (>60); Estimated Creatinine Clearance 39.93 ml/min; Glucose 95 mg/dL (74-106); Magnesium 2.2 mg/dL (1.6-2.6); Phosphorus 4.6 mg/dL (2.5-4.9); Potassium 4.2 mmol/L (3.5-5.1); Sodium Level 135 mmol/L (136-145); Thyroid Stim Hormone (TSH) 2.31 uIU/mL (0.358-3.74)
[2023-12-14 07:22] VITALS: BP 108/54; PULSE 82; RESP 20; TEMP 36.5; O2SAT 95
[2023-12-14 07:34] LABS: PTHIN 40.5 pg/mL (18.4-80.1)
[2023-12-14] MEDS: Magnesium Chloride 64 MG Delay Rel.Tablet 128 MG PO (08:58)
[2023-12-14] MEDS: Pantoprazole Sodium 20 MG Tablet PO (08:58)
[2023-12-14] MEDS: Losartan Potassium 25 MG Tablet PO (08:58)
[2023-12-14] MEDS: Spironolactone 25 MG Tablet PO (08:58)
[2023-12-14] MEDS: Menthol/Lanolin/Calamine/Znox 113 GM Tube 1 APPLIC TOPICAL ×2 (09:01→21:34)
--- NOTE | 2023-12-14 09:13 | PCM.PROGNOTE ---
Subjective Subjective Afebrile VSS -blood pressure over the past 24 hours has ranged from 108/54 to 144/72. She was started on Cozaar 25 mg yesterday. Heart rate is in the 80s. Maintaining appropriate oxygen saturation on RA Oral intake - FOOD refused supper last night but prior to that had been eating well. She ate 50 to 74% of her breakfast today. FLUIDS oral intake yesterday was 1710. She had 4050 ALT for a fluid balance of -2340. She received IV Lasix 40 mg twice yesterday. Weight today is 130 pounds and 15 ounces. Discussed with nursing -she had 78 liquid bowel movements last night. The right thigh dressing was changed last night because it was saturated with serosanguineous drainage. Reviewed the THERAPY notes Medication list reviewed. All lab drawn this morning was personally reviewed. The white blood cell count is 10.7. Hemoglobin is 8.4, up from 7.6 on 12/12/2023. Platelets are within normal limits today. Sodium is 135 and the potassium is 4.2. BUN is 19 and creatinine is 0.75 which is up from 0.63 on 12/12/2023. Calcium corrected for hypoalbuminemia is within normal limits. Phosphorus is normal following supplementation. Magnesium is normal at 2.2 following supplementation. TSH and PTH are within normal limits. Denies lightheadedness, shortness of breath, chest pain, palpitations, nausea/vomiting/heartburn/abdominal pain, calf tenderness. And tells me she slept well last night. She is hungry but she does not want to eat because she does not want to be incontinent of stools and burden the nurses. Objective Data Objective Data Vital Signs: Vital Signs Temp Pulse Resp BP Pulse Ox O2 Del Method 97.7 F L 82 20 H 108/54 L 95 Room Air 12/14/23 07:22 12/14/23 07:22 12/14/23 07:22 12/14/23 07:22 12/14/23 07:22 12/14/23 07:22 Oxygen Delivery Method Room Air Weight: 130 lb 15.273 oz Body Mass Index (BMI) 25.7 Intake & Output: Intake and Output for Last 24 Hours 12/12/23 12/13/23 12/14/23 23:59 23:59 23:59 Intake Total 750 / 750 1710 / 1710 200 / 200 Output Total 500 / 500 4050 / 4050 400 / 400 Balance 250 / 250 -2340 / -2340 -200 / -200 Lab / Micro Data 12/14/23 04:58 12/14/23 04:58 Labs: Laboratory Results - last 24 hr 12/14/23 04:58: WBC 10.7, RBC 2.66 L, Hgb 8.4 L, Hct 26.4 L, MCV 99.2 H, MCH 31.6, MCHC 31.8 L, RDW Std Deviation 50.7 H, RDW Coeff of Junior 17.5 H, Plt Count 152, MPV 10.4, Sodium 135 L, Potassium 4.2, Chloride 101, Carbon Dioxide 30.0, Anion Gap 4 L, BUN 19 H, Creatinine 0.75, Estim Creat Clear Calc 39.93, Est GFR (MDRD) Af Amer 94, Est GFR (MDRD) Non-Af 78, BUN/Creatinine Ratio 25.4 H, Glucose 95, Calcium 8.2 L, Phosphorus 4.6, Magnesium 2.2, TSH 2.31, PTH Intact 40.5 Micro: Microbiology 12/12/23 14:56 Stool Stool Occult Blood ([facility]ISON) - Final Radiography Diagnostic Testing: Radiology Impression Chest X-Ray 12/13/23 11:45 IMPRESSION: Stable elevation of the left hemidiaphragm with the scarring and/or atelectasis at the left lung base. Electronically Signed: Errol Castro MD at 15:25 EDT , Physical Exam Const alert Constitutional Narrative: Very talkative. Pleasant and cooperative. Resp Resp Narrative: few coarse crackles in the bases but, otherwise CTA with good air exchange. No conversational dyspnea. Effort and Inspection: Negative for tachypneic or labored Cardio regular rate and regular rhythm Cardio Narrative: No ectopy. No change in the murmur. GI normal to inspection, nondistended, normoactive bowel sounds, soft to palpation and non-tender GI Narrative: No guarding with palpation. Active bowel sounds throughout the abdomen. Having loose stools due to laxatives and stool softeners. She was full of stool. The left hemidiaphragm was elevated on the chest x-ray with many loops of bowel. No evidence of small bowel obstruction. Extremity no calf tenderness Extremity Narrative: She still has pitting edema in the thighs and distal legs BL but, the upper thigh is a lot softer. Still with tense pitting edema distal to the knees BL. No pitting in the flanks. Skin General Skin Exam: no breakdown Rashes: no rashes Wound Narrative: The dressing was saturated with serous DC and it was changed. No odor to the DC. Ecchymosis in the R thigh has settled into the posterior thigh and it is resolving. Psych Psych Narrative: Quite gregarious. Assessment & Plan Assessment/Plan (1) Critical aortic valve stenosis: PLAN: Nonrheumatic. (2) Acute diastolic (congestive) heart failure: PLAN: Secondary to critical aortic valve stenosis and fluid overload. (3) Debility: (4) Fall: QUALIFIERS: Encounter type: subsequent encounter Qualified Code(s): W19.XXXD - Unspecified fall, subsequent encounter (5) Closed intertrochanteric fracture of femur: QUALIFIERS: Encounter type: subsequent encounter Fracture alignment: displaced Laterality: right Fracture healing: with routine healing Qualified Code(s): S72.141D - Displaced intertrochanteric fracture of right femur, subsequent encounter for closed fracture with routine healing (6) Status post open reduction and internal fixation (ORIF) of fracture: (7) Acute anemia: (8) Hypophosphatemia: (9) Hypomagnesemia: (10) Urinary retention: (11) Peripheral edema: (12) Hiatal hernia: (13) GERD (gastroesophageal reflux disease): QUALIFIERS: Esophagitis presence: esophagitis presence not specified Qualified Code(s): K21.9 - Gastro-esophageal reflux disease without esophagitis (14) Mitral valve insufficiency: QUALIFIERS: Cardiac valve disease etiology: nonrheumatic Qualified Code(s): I34.0 - Nonrheumatic mitral (valve) insufficiency PLAN: Plan 1. Continue therapy 2. I suspect the constipation was contributing considerably to urine retention. Constipation has resolved and she has had an excellent response to magnesium citrate and Dulcolax. Will continue stool softeners. Will continue the Gomez catheter for now because we are diuresing her with intravenous Lasix twice a day and I want an accurate intake and output. 3. Lasix 40 mg IV twice daily 4. Limit fluids to 1500 cc daily 5. Start potassium chloride 10 mEq twice daily 6. Recheck a BMP on Sunday 7. Continue Cozaar and spironolactone. Hold Cozaar if the systolic is less than 100. Blood pressure today is 108/54 with a heart rate of 82. The mean arterial pressure has ranged from 72-96 over the past 24 hours. 8. When and is in [place] and she is staying with her son Prakash she is alone for a large portion of the day. She is very outgoing and talkative and I think she would do very well at [facility] for 2 days a week. sheetmetal trades worker provided and with the information and we will discuss with her sons prior to discharge. Charges/Coding Visit Charges Inpatient E&M: 53027 Subs Hosp L2
[2023-12-14] MEDS: 0.9% Saline Lock 10 ML Syringe IV ×3 (10:00→21:33)
[2023-12-14] MEDS: Furosemide 40 MG/4 ML Vial IV ×2 (10:00→18:12)
--- NOTE | 2023-12-14 12:11 | CASEMGMT ---
Social Work SW met with pt and introduced self and role of SW. Psychosocial assessment completed. Pt is alert and oriented x3 but forgetful. SW informed pt and also called pt's son Prakash and notified that insurance has approved 18 days with expected dc of 12/28. Pt plans to discharge to her son Xavier's home [address] where she will have 24 hour supervision. Pt does live in [place] where her son Prakash stays with her. SW provided pt with written information regarding [facility]. Pt is appreciative of information and will share with her son. SW will continue to follow for dc planning and support. CHAYO Hardin
[2023-12-14] MEDS: Rivaroxaban 10 MG Tablet PO (15:40)
[2023-12-14] MEDS: Potassium Chloride Oral Tablet 10 MEQ PO (15:40)
[2023-12-14 20:00] VITALS: BP 137/73; PULSE 85; RESP 20; TEMP 37.3; O2SAT 97
[2023-12-14] MEDS: Mirtazapine 15 MG Tablet 7.5 MG PO (21:34)
[2023-12-14] MEDS: Lansoprazole 15 MG Capsule.DR PO (21:57)
[2023-12-15] MEDS: Acetaminophen 500 MG Tablet 1000 MG PO ×3 (06:10→20:42)
[2023-12-15] MEDS: Na Biphos/Potassium Phosphate PACKET 1 PACKET PO (07:01)
[2023-12-15 07:08] VITALS: BMI 24.2
[2023-12-15] MEDS: Losartan Potassium 25 MG Tablet PO (07:49)
[2023-12-15] MEDS: Magnesium Chloride 64 MG Delay Rel.Tablet 128 MG PO (07:49)
[2023-12-15] MEDS: Lansoprazole 15 MG Capsule.DR PO ×2 (07:49→20:42)
[2023-12-15] MEDS: Potassium Chloride Oral Tablet 10 MEQ PO ×2 (07:49→16:57)
[2023-12-15] MEDS: Menthol/Lanolin/Calamine/Znox 113 GM Tube 1 APPLIC TOPICAL ×2 (07:50→20:43)
[2023-12-15] MEDS: Spironolactone 25 MG Tablet PO (07:50)
[2023-12-15] MEDS: Furosemide 40 MG/4 ML Vial IV ×2 (07:56→17:34)
[2023-12-15] MEDS: 0.9% Saline Lock 10 ML Syringe IV ×2 (07:58→16:59)
[2023-12-15 08:00] VITALS: BP 104/56; PULSE 81; RESP 18; TEMP 37.1; O2SAT 95
[2023-12-15] MEDS: traMADol 50 MG Tablet 25 MG PO (08:28)
[2023-12-15] MEDS: Rivaroxaban 10 MG Tablet PO (16:57)
[2023-12-15 19:20] VITALS: BP 100/46; PULSE 85; RESP 16; TEMP 36.7; O2SAT 98
[2023-12-15] MEDS: Mirtazapine 15 MG Tablet 7.5 MG PO (20:40)
[2023-12-15 21:50] VITALS: RESP 16; O2SAT 95
[2023-12-16] MEDS: Acetaminophen 500 MG Tablet 1000 MG PO ×3 (05:23→20:50)
[2023-12-16] MEDS: traMADol 50 MG Tablet 25 MG PO ×2 (05:36→20:54)
[2023-12-16 05:46] VITALS: BMI 24.0
[2023-12-16 07:12] LABS: Anion Gap 6 (5-15); BUN 21 mg/dL (7-18); BUN/Creat Ratio 24.5 RATIO (10-20); Calcium,Total 8.1 mg/dL (8.5-10.1); Chloride 97 mmol/L (98-107); Creatinine, Serum 0.86 mg/dL (0.55-1.02); EST Glomerular Filtration Rate 67 mL/min (>60); Est Glom Filt Rate - Afr Amer 81 mL/min (>60); Estimated Creatinine Clearance 36.07 ml/min; Glucose 98 mg/dL (74-106); Sodium Level 134 mmol/L (136-145)
[2023-12-16] MEDS: Magnesium Chloride 64 MG Delay Rel.Tablet 128 MG PO (07:33)
[2023-12-16] MEDS: Lansoprazole 15 MG Capsule.DR PO ×2 (07:33→20:48)
[2023-12-16] MEDS: Potassium Chloride Oral Tablet 10 MEQ PO ×2 (07:33→16:48)
[2023-12-16] MEDS: Spironolactone 25 MG Tablet PO (07:33)
[2023-12-16] MEDS: Menthol/Lanolin/Calamine/Znox 113 GM Tube 1 APPLIC TOPICAL ×2 (07:37→20:49)
[2023-12-16 08:00] VITALS: BP 98/50; PULSE 80; RESP 16; TEMP 36.4; O2SAT 95
[2023-12-16] MEDS: 0.9% Saline Lock 10 ML Syringe IV ×3 (10:46→20:41)
[2023-12-16] MEDS: Furosemide 40 MG/4 ML Vial IV ×2 (10:46→16:58)
[2023-12-16] MEDS: Rivaroxaban 10 MG Tablet PO (16:48)
[2023-12-16 19:25] VITALS: BP 105/55; PULSE 83; RESP 16; TEMP 37; O2SAT 96
[2023-12-16] MEDS: Mirtazapine 15 MG Tablet 7.5 MG PO (20:48)
[2023-12-17] MEDS: traMADol 50 MG Tablet 25 MG PO ×2 (02:54→09:51)
[2023-12-17 06:00] VITALS: BMI 23.2
[2023-12-17] MEDS: Acetaminophen 500 MG Tablet 1000 MG PO ×3 (06:23→21:22)
[2023-12-17 07:16] VITALS: BP 99/51; PULSE 81; RESP 16; TEMP 36.7; O2SAT 96
[2023-12-17] MEDS: Magnesium Chloride 64 MG Delay Rel.Tablet 128 MG PO (07:48)
[2023-12-17] MEDS: Potassium Chloride Oral Tablet 10 MEQ PO ×2 (07:48→17:00)
[2023-12-17] MEDS: Lansoprazole 15 MG Capsule.DR PO ×2 (07:48→21:22)
[2023-12-17] MEDS: Senna Tablet 2 TABLET PO ×2 (07:48→21:22)
[2023-12-17] MEDS: Spironolactone 25 MG Tablet PO (07:48)
[2023-12-17] MEDS: Menthol/Lanolin/Calamine/Znox 113 GM Tube 1 APPLIC TOPICAL ×2 (07:52→21:22)
[2023-12-17] MEDS: 0.9% Saline Lock 10 ML Syringe IV ×2 (09:52→21:24)
[2023-12-17] MEDS: Furosemide 40 MG/4 ML Vial IV (09:52)
--- NOTE | 2023-12-17 10:12 | PCM.PROGNOTE ---
Subjective Subjective Afebrile VSS - Last 2 doses of Losartan have been held due to low BP. Maintaining appropriate oxygen saturation on RA Oral intake - FOOD intake over the weekend was poor and she only took 25 to 49% of her meals. Today she had 50 to 74% of her breakfast. FLUIDS poor yesterday. She only took 720 p.o. and had 3 L out. After she was cleaned out with laxatives she did not have a BM Sunday but, she had a BM yesterday. Weight is down to 118 and 6 oz today........down from 132 and 8 oz at admission to rehab. She weighed 106 and 7 oz at presentation to the hospital. Discussed with nursing - per nursing she has a skin tear R leg in between the incisions. Reviewed the THERAPY notes Medication list reviewed. Has been taking Ultram 2-3 times a day for pain. I reviewed all lab done on 12/15. Sodium was 134 and the potassium was 4.0. Chloride is 97. Serum bicarb was high normal at 31. The BUN is 21 which is up from 19 on 12/14/2023. Creatinine is 0.86. And denies lightheadedness, cephalgia, chest pain, shortness of breath, cough, nausea/vomiting/heartburn/abdominal pain, constipation and calf tenderness. She tells me that she does not want to gain back the wt she lost after her passed in October..........I told her that she is not going to heal the bone or the surgery site unless she has adequate intake. She is drinking chocolate Ensure Plus at times. She tells me that she was restless last night. Objective Data Objective Data Vital Signs: Vital Signs Temp Pulse Resp BP Pulse Ox O2 Del Method 98.1 F 81 16 99/51 L 96 Room Air 12/17/23 07:16 12/17/23 07:16 12/17/23 07:16 12/17/23 07:16 12/17/23 07:16 12/17/23 07:16 Oxygen Delivery Method Room Air Weight: 118 lb 6.212 oz Body Mass Index (BMI) 23.2 Intake & Output: Intake and Output for Last 24 Hours 12/15/23 12/16/23 12/17/23 23:59 23:59 23:59 Intake Total 1190 / 1190 720 / 720 220 / 220 Output Total 2305 / 2305 3025 / 3025 300 / 300 Balance -1115 / -1115 -2305 / -2305 -80 / -80 Lab / Micro Data 12/14/23 04:58 12/16/23 06:35 Micro: Microbiology 12/12/23 14:56 Stool Stool Occult Blood ([facility]ISON) - Final Physical Exam Const alert and no apparent distress General Appearance: cooperative HEENT Mouth: dry mucous membranes Resp clear to auscultation bilaterally Resp Narrative: Clear after a few deep breaths. No cough. Effort and Inspection: Negative for tachypneic GI normal to inspection, nondistended, normoactive bowel sounds, soft to palpation and non-tender Extremity Extremity Narrative: She has pitting edema of the R thigh and the ankle. No ankle edema on the left. No edema in the flanks. All 4 incisions are intact with no dehiscence. There is a small amount of serosanguineous drainage present. No jena-incisional erythema. Ecchymosis is resolving. She has 2 small skin tears on the mid/distal right lateral thigh, more likely than not related to tape. No sign infection. No odor and no purulent DC. Skin General Skin Exam: skin tear(s) Rashes: no rashes Wound Narrative: see extremity exam Assessment & Plan Assessment/Plan (1) Critical aortic valve stenosis: (2) Acute diastolic (congestive) heart failure: (3) Debility: (4) Fall: QUALIFIERS: Encounter type: subsequent encounter Qualified Code(s): W19.XXXD - Unspecified fall, subsequent encounter (5) Closed intertrochanteric fracture of femur: QUALIFIERS: Encounter type: subsequent encounter Fracture alignment: displaced Laterality: right Fracture healing: with routine healing Qualified Code(s): S72.141D - Displaced intertrochanteric fracture of right femur, subsequent encounter for closed fracture with routine healing (6) Status post open reduction and internal fixation (ORIF) of fracture: (7) Acute anemia: (8) Urinary retention: (9) Skin tear: PLAN: R lateral thigh. No sign of infection. Most likely related to tape. Will use a Mepilex to cover and nursing is aware. PLAN: Plan 1. Continue therapy 2. Discontinue IV Lasix and transition to Lasix 40 mg p.o. daily 3. Check orthostatics today 4. CBC, BMP, magnesium, phosphorus in the a.m. 5. Order calorie counts for the next 3 days. 6. Voiding trial in the AM. Hoping that since the constipation/obstipation has resolved that she will no longer be retaining. Charges/Coding Visit Charges Inpatient E&M: 58094 Subs Hosp L2
[2023-12-17 11:20] VITALS: BP 103/50; BP 107/54; BP 112/57; PULSE 78; PULSE 82; PULSE 97
[2023-12-17] MEDS: Rivaroxaban 10 MG Tablet PO (17:00)
[2023-12-17 20:25] VITALS: BP 90/59; PULSE 84; RESP 16; TEMP 36.6; O2SAT 98
[2023-12-17 21:16] VITALS: BP 111/64; PULSE 84; O2SAT 97
[2023-12-17] MEDS: Petrolatum 33% Tube 1 APPLIC TOPICAL (21:22)
[2023-12-17] MEDS: Mirtazapine 15 MG Tablet 7.5 MG PO (21:22)
[2023-12-18 06:00] VITALS: BMI 23.1
[2023-12-18] MEDS: Acetaminophen 500 MG Tablet 1000 MG PO ×3 (06:52→21:06)
[2023-12-18 07:08] LABS: Anion Gap 5 (5-15); BUN 22 mg/dL (7-18); BUN/Creat Ratio 28.9 RATIO (10-20); Calcium,Total 8.3 mg/dL (8.5-10.1); Chloride 98 mmol/L (98-107); Creatinine, Serum 0.76 mg/dL (0.55-1.02); EST Glomerular Filtration Rate 77 mL/min (>60); Est Glom Filt Rate - Afr Amer 93 mL/min (>60); Estimated Creatinine Clearance 35.59 ml/min; Glucose 97 mg/dL (74-106); Potassium 3.9 mmol/L (3.5-5.1); Sodium Level 134 mmol/L (136-145)
[2023-12-18 07:36] VITALS: BP 115/60; PULSE 83; RESP 17; TEMP 36.6; O2SAT 100
[2023-12-18] MEDS: Magnesium Chloride 64 MG Delay Rel.Tablet 128 MG PO (07:46)
[2023-12-18] MEDS: Furosemide 40 MG Tablet PO (07:46)
[2023-12-18] MEDS: Losartan Potassium 25 MG Tablet PO (07:46)
[2023-12-18] MEDS: Potassium Chloride Oral Tablet 10 MEQ PO ×2 (07:46→16:45)
[2023-12-18] MEDS: Spironolactone 25 MG Tablet PO (07:46)
[2023-12-18] MEDS: Senna Tablet 2 TABLET PO ×2 (07:46→21:07)
[2023-12-18] MEDS: Lansoprazole 15 MG Capsule.DR PO ×2 (07:46→21:07)
[2023-12-18] MEDS: Menthol/Lanolin/Calamine/Znox 113 GM Tube 1 APPLIC TOPICAL ×2 (07:52→21:07)
--- NOTE | 2023-12-18 08:54 | PCM.PROGNOTE ---
Subjective Subjective Afebrile VSS -blood pressure is better today at 115/60. Heart rate is within normal limits. Maintaining appropriate oxygen saturation on RA-97 to 100% on room air Oral intake - FOOD fair - good Ate 50-74% of supper last night and 75-100% of breakfast this AM FLUIDS poor Weight today is 117 pounds and 15 ounces, down from 118 pounds and 6 ounces yesterday. Fluid balance yesterday was -1260 and overnight she was -270. Discussed with nursing - She had a bloody nose last night. Reviewed the THERAPY notes Medication list reviewed. All lab drawn this morning was personally reviewed. The sodium is stable at 134 and potassium is 3.9. The BUN is 22 with a creatinine of 0.76 which is stable. Calcium corrected for hypoalbuminemia is within normal limits. Magnesium is 2.0. Phosphorus is normal. Hemoglobin is stable at 8.7. Platelets and white blood cell count are within normal limit. And denies lightheadedness, shortness of breath, cough, nausea/vomiting/abdominal pain, calf tenderness. Her biggest complaint is she is afraid she is going to fall. Objective Data Objective Data Vital Signs: Vital Signs Temp Pulse Resp BP Pulse Ox O2 Del Method 97.8 F 83 17 115/60 100 Room Air 12/18/23 07:36 12/18/23 07:36 12/18/23 07:36 12/18/23 07:36 12/18/23 07:36 12/18/23 07:36 Oxygen Delivery Method Room Air Weight: 117 lb 15.157 oz Body Mass Index (BMI) 23.1 Intake & Output: Intake and Output for Last 24 Hours 12/16/23 12/17/23 12/18/23 23:59 23:59 23:59 Intake Total 720 / 720 640 / 640 480 / 480 Output Total 3025 / 3025 1900 / 1900 750 / 750 Balance -2305 / -2305 -1260 / -1260 -270 / -270 Lab / Micro Data 12/18/23 05:15 12/18/23 05:15 Labs: Laboratory Results - last 24 hr 12/18/23 05:15: Sodium 134 L, Potassium 3.9, Chloride 98, Carbon Dioxide 31.0, Anion Gap 5, BUN 22 H, Creatinine 0.76, Estim Creat Clear Calc 35.59, Est GFR (MDRD) Af Amer 93, Est GFR (MDRD) Non-Af 77, BUN/Creatinine Ratio 28.9 H, Glucose 97, Calcium 8.3 L, Magnesium 2.0 Micro: Microbiology 12/12/23 14:56 Stool Stool Occult Blood (ALLISON) - Final Physical Exam Const alert and no apparent distress General Appearance: cooperative Resp normal respiratory effort and clear to auscultation bilaterally Resp Narrative: No conversational dyspnea Effort and Inspection: Negative for tachypneic Cardio regular rate, regular rhythm and no gallops Cardio Narrative: No change in the murmur. No ectopy. GI normal to inspection, nondistended, normoactive bowel sounds, soft to palpation and non-tender GI Narrative: No guarding with palpation Extremity Extremity Narrative: No pitting edema in the thighs any longer. She has mild pitting edema in the RLE in the pretibial area and the ankle. No flank edema. Skin Wound Narrative: Incisions are intact with no purulent discharge but with mild serous drainage, no odor, no jena-incisional erythema and no significant swelling around the incision. Assessment & Plan Assessment/Plan (1) Critical aortic valve stenosis: (2) Acute diastolic (congestive) heart failure: (3) Debility: (4) Fall: QUALIFIERS: Encounter type: subsequent encounter Qualified Code(s): W19.XXXD - Unspecified fall, subsequent encounter (5) Closed intertrochanteric fracture of femur: QUALIFIERS: Encounter type: subsequent encounter Fracture alignment: displaced Laterality: right Fracture healing: with routine healing Qualified Code(s): S72.141D - Displaced intertrochanteric fracture of right femur, subsequent encounter for closed fracture with routine healing (6) Status post open reduction and internal fixation (ORIF) of fracture: (7) Acute anemia: (8) Urinary retention: (9) Skin tear: PLAN: Plan 1. Continue therapy 2. Continue Lasix 40 mg p.o. daily 3. Calorie counts are in progress. 4. Voiding trial today 5. Catheterized urine specimen for UA prior to discontinuing the Gomez. Charges/Coding Visit Charges Inpatient E&M: 48357 Subs Hosp L1
[2023-12-18] MEDS: traMADol 50 MG Tablet 25 MG PO ×3 (09:14→22:54)
[2023-12-18 09:39] LABS: Hematocrit 27.7 % (37-47); Hemoglobin 8.7 g/dL (12.0-15.0); Mean Corp Hgb Conc 31.4 g/dL (32-36); Mean Corpuscular Hgb 31.5 pg (27.0-32.0); Mean Corpuscular Volume 100.4 fL (81-99); Platelet Count 194 K/mm3 (150-450); RBC Distribution Width CV 17.6 % (11.6-14.6); RBC Distribution Width SD 61.1 fl (35.1-43.9); Red Blood Count 2.76 M/mm3 (4.2-5.4); Scan Indicated on CBC? Y/N NO; White Blood Count 8.3 K/mm3 (4.4-11.0)
[2023-12-18 10:58] LABS: Phosphorus 3.7 mg/dL (2.5-4.9)
[2023-12-18 13:35] LABS: Mucous, Urine 0 SEEN /hpf (<or=2+)
[2023-12-18 13:36] LABS: Color, Urine Yellow (Yellow); Glucose, Dipstick Normal (Normal); Ketone-Dipstick Negative (Negative); Leukocyte Esterase-Dipstick 500 /ul (Negative); Nitrite-Dipstick Negative (Negative); Occult Blood-Urine 10 /ul (Negative); Protein-Dipstick Negative (Negative); Urine Bilirubin Dipstick Negative (Negative); Urine Clarity Sl. Cloudy (Clear); Urine Urobilinogen Normal (Normal)
[2023-12-18 13:49] LABS: Red Blood Cells-Urine 0-5 SEEN /hpf (0-5); Squamous Epithelial Cells - UA 0-5 SEEN /hpf (5-10); White Blood Cells 5-10 SEEN /hpf (0-5)
[2023-12-18 13:50] LABS: Bacteria 1+ /hpf (None Seen)
[2023-12-18] MEDS: Ensure Plus High Protein 120 ML LIQUID PO ×2 (14:22→21:06)
[2023-12-18] MEDS: Rivaroxaban 10 MG Tablet PO (16:45)
[2023-12-18 20:00] VITALS: BP 98/48; PULSE 83; RESP 17; TEMP 36.6; O2SAT 93
[2023-12-18] MEDS: Mirtazapine 15 MG Tablet 7.5 MG PO (21:06)
[2023-12-19] MEDS: Acetaminophen 500 MG Tablet 1000 MG PO ×3 (05:40→20:56)
[2023-12-19] MEDS: Ensure Plus High Protein 120 ML LIQUID PO ×2 (05:40→14:02)
[2023-12-19] MEDS: 0.9% Saline Lock 10 ML Syringe IV ×2 (05:44→20:57)
[2023-12-19 05:54] VITALS: BMI 22.9
[2023-12-19] MEDS: Lansoprazole 15 MG Capsule.DR PO ×2 (07:23→20:57)
[2023-12-19] MEDS: Potassium Chloride Oral Tablet 10 MEQ PO ×2 (07:23→17:05)
[2023-12-19] MEDS: Spironolactone 25 MG Tablet PO (07:23)
[2023-12-19] MEDS: Furosemide 40 MG Tablet PO (07:23)
[2023-12-19] MEDS: Magnesium Chloride 64 MG Delay Rel.Tablet 128 MG PO (07:23)
[2023-12-19] MEDS: Losartan Potassium 25 MG Tablet PO (07:23)
[2023-12-19] MEDS: Menthol/Lanolin/Calamine/Znox 113 GM Tube 1 APPLIC TOPICAL ×2 (07:27→21:01)
[2023-12-19 08:38] VITALS: BP 116/65; PULSE 74; RESP 16; TEMP 36.4; O2SAT 96
[2023-12-19] MEDS: Rivaroxaban 10 MG Tablet PO (17:05)
[2023-12-19 20:30] VITALS: BP 100/60; PULSE 82; RESP 16; TEMP 36.6; O2SAT 97
[2023-12-19] MEDS: Mirtazapine 15 MG Tablet 7.5 MG PO (20:56)
[2023-12-19] MEDS: Senna Tablet 2 TABLET PO (20:57)
[2023-12-19] MEDS: traMADol 50 MG Tablet 25 MG PO (20:57)
[2023-12-20] MEDS: Acetaminophen 500 MG Tablet 1000 MG PO ×3 (05:00→21:04)
[2023-12-20 05:37] VITALS: BMI 23.1
[2023-12-20 07:39] VITALS: BP 114/54; PULSE 74; RESP 16; TEMP 36.6; O2SAT 96
[2023-12-20] MEDS: Potassium Chloride Oral Tablet 10 MEQ PO ×2 (08:11→16:51)
[2023-12-20] MEDS: Lansoprazole 15 MG Capsule.DR PO ×2 (08:11→21:05)
[2023-12-20] MEDS: Spironolactone 25 MG Tablet PO (08:11)
[2023-12-20] MEDS: Magnesium Chloride 64 MG Delay Rel.Tablet 128 MG PO (08:11)
[2023-12-20] MEDS: Losartan Potassium 25 MG Tablet PO (08:11)
[2023-12-20] MEDS: Menthol/Lanolin/Calamine/Znox 113 GM Tube 1 APPLIC TOPICAL ×2 (08:11→21:06)
[2023-12-20] MEDS: Furosemide 40 MG Tablet PO (08:11)
--- NOTE | 2023-12-20 09:27 | PCM.PROGNOTE ---
Subjective Subjective Nikki was seen on team rounds today. Her sons Prakash and Xavier were present in the room for rounds. All questions were answered to their satisfaction. Afebrile VSS -blood pressure for the past 48 hours has ranged from 98/48 on 12/18/2023 at bedtime to 116/65. Blood pressure this a.m. is 114/54. Heart rate is within normal limits. Maintaining appropriate oxygen saturation on RA Oral intake - FOOD variable and ranges from poor to 75%. FLUIDS poor fluid balance yesterday was +665 and she is on Lasix 40 mg p.o. daily. Calorie count is in progress. I reviewed the dietitian's note from 12/19/2023. On 12/18/2023 she took approximately 400 fredy and only 9 g of protein. Weight today is 118 pounds which is up from 116 pounds and 14 ounces yesterday. Discussed with nursing - no problems that need addressed. She was straight cath'd once on 12/17. Postvoid residuals yesterday and today are 101 and 153. Reviewed the THERAPY notes Medication list reviewed. Had tramadol 25 mg 3 times on 12/18/2023 but yesterday only had 1 dose and that was at bedtime last night. Urine culture results were reviewed. She had 50-80,000 colonies of 2 different E. coli's. Both are pansensitive. And denies lightheadedness, chest pain, cough, shortness of breath, nausea, dysuria and calf tenderness. She is complaining of being tired after therapy. She continues to complain of right hip pain and tells me it gets worse with therapy. She has not been asking for pain medication. She denies shortness of breath, cough, chest pain, lightheadedness, dysuria, nausea/vomiting/abdominal pain. Objective Data Objective Data Vital Signs: Vital Signs Temp Pulse Resp BP Pulse Ox O2 Del Method 97.9 F 74 16 114/54 L 96 Room Air 12/20/23 07:39 12/20/23 07:39 12/20/23 07:39 12/20/23 07:39 12/20/23 07:39 12/20/23 07:39 Oxygen Delivery Method Room Air Weight: 118 lb Body Mass Index (BMI) 23.1 Intake & Output: Intake and Output for Last 24 Hours 12/18/23 12/19/23 12/20/23 23:59 23:59 23:59 Intake Total 950 / 950 920 / 920 220 / 220 Output Total 1750 / 1750 255 / 255 Balance -800 / -800 665 / 665 220 / 220 Lab / Micro Data 12/18/23 05:15 12/21/23 05:34 Micro: Microbiology 12/18/23 13:25 Urine Catheter - Gomez Urine Culture - Final Escherichia coli Escherichia coli#2 12/12/23 14:56 Stool Stool Occult Blood (ALLISON) - Final Physical Exam Const alert Constitutional Narrative: Appropriate. Sitting in the recliner at the bedside with her legs dependent. Pleasant. General Appearance: cooperative HEENT moist oral mucous membranes Resp Resp Narrative: Persistent coarse crackles in the R lung base. No cough with deep breathing. No conversational dyspnea. Diminished breath sounds in the left base which is chronic secondary to left hemidiaphragm elevation. Effort and Inspection: Negative for tachypneic Cardio regular rate and regular rhythm Cardio Narrative: No change in the MM other than it is a little softer. No gallop. No ectopy GI normal to inspection, nondistended, normoactive bowel sounds, soft to palpation and non-tender GI Narrative: No guarding with palpation. Denies heartburn. Extremity no calf tenderness Extremity Narrative: No ankle edema. S she is on Xarelto 10 mg daily for DVT prophylaxis. He had pitting edema of the R thigh. No edema of the flanks. Skin Skin Narrative: She has skin tears, X2, of the R lateral thigh. No purulent DC. Incisions are intact with no dehiscence and no jena-incisional erythema. Rashes: no rashes Psych Psych Narrative: She is calm. does not seem overwhelmingly depressed and she is sleeping better but, appetite remains poor. She is not anxious. She is very polite and grateful for the care she is getting. Appearance: appropriate Attitude: No agitated Activity / Motor Behavior: Negative for restless Assessment & Plan Assessment/Plan (1) Critical aortic valve stenosis: (2) Acute diastolic (congestive) heart failure: (3) Debility: (4) Fall: QUALIFIERS: Encounter type: subsequent encounter Qualified Code(s): W19.XXXD - Unspecified fall, subsequent encounter (5) Closed intertrochanteric fracture of femur: QUALIFIERS: Encounter type: subsequent encounter Fracture alignment: displaced Fracture healing: with routine healing Laterality: right Qualified Code(s): S72.141D - Displaced intertrochanteric fracture of right femur, subsequent encounter for closed fracture with routine healing (6) Status post open reduction and internal fixation (ORIF) of fracture: (7) Acute anemia: (8) Urinary retention: (9) Skin tear: (10) Obstipation: PLAN: resolved (11) UTI (urinary tract infection) due to urinary indwelling catheter: PLAN: Catheter was inserted for urine retention which has resolved following good bowel protocol with multiple stools following laxatives. PLAN: Plan 1. Continue therapy 2. Increase Remeron to 15 mg p.o. nightly 3. Start Keflex suspension 500 mg 3 times daily for 7 days for catheter induced urinary tract infection. 4. BMP and magnesium in the AM. 5. Scheduled tramadol 25 mg 3 times daily for better pain control Charges/Coding Visit Charges Inpatient E&M: 86158 Subs Hosp L2
[2023-12-20] MEDS: 0.9% Saline Lock 10 ML Syringe IV (11:59)
[2023-12-20] MEDS: traMADol 50 MG Tablet 25 MG PO ×2 (11:59→21:05)
--- NOTE | 2023-12-20 12:34 | CASEMGMT ---
Social Work- Teams Meeting IDT met with patient and sons, Xavier and Prakash to complete care planning. Discussed patient's progress with therapy (PT/OT/ST) and nursing. Patient is 1-2 person assist for self care task. Patient requires mod/min assist with bed transfer/ mobility. Patient is mod/max for bed/chair. Patient is ambulating 20ft with a walker. Patient is progressing with speech therapy, but requires continued care. ARMIDA educated Xavier and Prakash on patient's Medicare coverage and benefits. Patient is approved for 18 days; anticipated discharge on 12/28. Patient's son, Xavier informed ARMIDA that ideally the patient will need to be independent to care with minimal assistance prior to discharging home with family. Patient's family would like the patient to discharge home to [place] to provide family support with home health care when needed. Patient's son, Prakash informed ARMIDA that he is unsure the patient will be able to transition home post discharge. Family would like to have patient discharge to the Transitional Care Unit. IF patient is unable to transition to TCU then they would like placement in [place] or [place]. Patient's son has a list of facilities from initial hospitalization. Xavier provided choice by preference: 1. TCU 2. [facility] 3. [facility] will continue to monitor to assist with discharge planning. ITZEL Perea
[2023-12-20] MEDS: Cephalexin Suspension 250 MG/5 ML PO.SYRINGE 500 MG PO ×2 (14:30→21:05)
[2023-12-20] MEDS: Ensure Plus High Protein 120 ML LIQUID PO ×2 (14:30→21:05)
[2023-12-20] MEDS: Rivaroxaban 10 MG Tablet PO (16:51)
[2023-12-20 21:00] VITALS: BP 94/58; PULSE 92; RESP 16; TEMP 37.1; O2SAT 92; O2SAT 96
[2023-12-20] MEDS: Senna Tablet 2 TABLET PO (21:04)
[2023-12-20] MEDS: Mirtazapine 15 MG Tablet PO (21:05)
[2023-12-21] VITALS (8 sets, daily range): BP systolic 70–114; BP diastolic 38–65; PULSE 77–91; RESP 16–19; TEMP 36.8; O2SAT 96–97; BMI 23.1
[2023-12-21 06:21] LABS: Anion Gap 7 (5-15); BUN 26 mg/dL (7-18); BUN/Creat Ratio 32.9 RATIO (10-20); Calcium,Total 8.5 mg/dL (8.5-10.1); Chloride 101 mmol/L (98-107); Creatinine, Serum 0.79 mg/dL (0.55-1.02); EST Glomerular Filtration Rate 73 mL/min (>60); Est Glom Filt Rate - Afr Amer 88 mL/min (>60); Estimated Creatinine Clearance 35.59 ml/min; Glucose 100 mg/dL (74-106); Magnesium 2.2 mg/dL (1.6-2.6); Potassium 4.5 mmol/L (3.5-5.1); Sodium Level 135 mmol/L (136-145)
[2023-12-21] MEDS: Cephalexin Suspension 250 MG/5 ML PO.SYRINGE 500 MG PO ×3 (06:32→21:05)
[2023-12-21] MEDS: Ensure Plus High Protein 120 ML LIQUID PO ×3 (06:32→21:06)
[2023-12-21] MEDS: Acetaminophen 500 MG Tablet 1000 MG PO ×3 (06:32→21:03)
[2023-12-21] MEDS: traMADol 50 MG Tablet 25 MG PO ×3 (06:33→21:04)
[2023-12-21] MEDS: Magnesium Chloride 64 MG Delay Rel.Tablet 128 MG PO (08:07)
[2023-12-21] MEDS: Potassium Chloride Oral Tablet 10 MEQ PO (08:07)
[2023-12-21] MEDS: Lansoprazole 15 MG Capsule.DR PO ×2 (08:08→21:04)
[2023-12-21] MEDS: Menthol/Lanolin/Calamine/Znox 113 GM Tube 1 APPLIC TOPICAL ×2 (08:16→21:05)
[2023-12-21] MEDS: 0.9% Saline Lock 10 ML Syringe IV ×2 (08:26→20:53)
--- NOTE | 2023-12-21 14:25 | PN_ITS ---
Subjective Subjective Day #2 of Keflex for E. coli cystitis. Afebrile VSS - She was hypotensive this AM but, this has resolved. Maintaining appropriate oxygen saturation on RA Oral intake - FOOD only 825 to 49% of her breakfast this morning and she refused dinner last night. She did eat 75 to 100% of her lunch and she has been good about drinking the Ensure. FLUIDS fluid intake yesterday was 810 and so far today she has had 10:20 AM. Calorie counts: 12/17 750 fredy with 29 g of protein, 12/18 936 fredy with 25.5 g of protein, 12/19 965 fredy with 33 g of protein 3-day average is 883 fredy and 29 g of protein daily. Remeron was increased to 15 mg nightly last night. Dietitian will continue to follow the patient. Weight today is 117 pounds and 9 ounces which is down from 118 pounds yesterday. Discussed with nursing - no problems that need addressed. She slept well last night. Reviewed the THERAPY notes - she was less painful with therapy today and did much better with management of the WW. Medication list reviewed. All lab drawn this morning was personally reviewed. Sodium is 135 and the potassium is 4.5. Bicarb is 27 and the BUN is 26 with a stable creatinine at 0.79. Magnesium is normal at 2.2. Denies lightheadedness, chest pain, shortness of breath, cough, nausea, abdominal pain, dysuria. Her only complaint is she feels tired. Still telling me that she has no appetite. The last 2 postvoid residuals were less than 200. Objective Data Objective Data Vital Signs: Vital Signs Temp Pulse Resp BP Pulse Ox O2 Del Method 98.3 F 89 16 114/65 96 Room Air 12/21/23 08:24 12/21/23 08:24 12/21/23 08:24 12/21/23 11:26 12/21/23 08:30 12/21/23 08:30 Oxygen Delivery Method Room Air Weight: 117 lb 9 oz Body Mass Index (BMI) 23.1 Intake & Output: Intake and Output for Last 24 Hours 12/19/23 12/20/23 12/21/23 23:59 23:59 23:59 Intake Total 920 / 920 810 / 810 1020 / 1020 Output Total 255 / 255 100 / 100 Balance 665 / 665 710 / 710 1020 / 1020 Lab / Micro Data 12/18/23 05:15 12/21/23 05:34 Labs: Laboratory Results - last 24 hr 12/21/23 05:34: Sodium 135 L, Potassium 4.5, Chloride 101, Carbon Dioxide 27.0, Anion Gap 7, BUN 26 H, Creatinine 0.79, Estim Creat Clear Calc 35.59, Est GFR (MDRD) Af Amer 88, Est GFR (MDRD) Non-Af 73, BUN/Creatinine Ratio 32.9 H, Glucose 100, Calcium 8.5, Magnesium 2.2 Micro: Microbiology 12/18/23 13:25 Urine Catheter - Gomez Urine Culture - Final Escherichia coli Escherichia coli#2 12/12/23 14:56 Stool Stool Occult Blood (ALLISON) - Final Physical Exam Const alert and no apparent distress Constitutional Narrative: Sitting in the recliner at the bedside. Looks tired and is not quite as talkative........I suspect scheduling the Tramadol TID is contributing to the tired feeling but, she did not c/o leg pain to me today. General Appearance: cooperative Orientation / Consciousness: Negative for confused Resp Resp Narrative: Decreased in the left base.......this is chronic due to elevation of the L hemidiaphragm. She has just a few coarse crackles in the R base and she has no wheezes. She is not tachypneic and she has no conversational dyspnea. Cardio regular rate, regular rhythm and no gallops GI normal to inspection, nondistended, normoactive bowel sounds and non-tender Extremity Extremity Narrative: Mild ankle edema on the R but no ankle edema on the left. Assessment & Plan Assessment/Plan (1) Critical aortic valve stenosis: (2) Acute diastolic (congestive) heart failure: (3) Debility: (4) Fall: QUALIFIERS: Encounter type: subsequent encounter Qualified Code(s): W19.XXXD - Unspecified fall, subsequent encounter (5) Closed intertrochanteric fracture of femur: QUALIFIERS: Encounter type: subsequent encounter Fracture alignment: displaced Laterality: right Fracture healing: with routine healing Qualified Code(s): S72.141D - Displaced intertrochanteric fracture of right femur, subsequent encounter for closed fracture with routine healing (6) Status post open reduction and internal fixation (ORIF) of fracture: (7) Acute anemia: (8) Urinary retention: (9) Skin tear: (10) UTI (urinary tract infection) due to urinary indwelling catheter: QUALIFIERS: Indwelling urinary catheter type: indwelling urethral catheter Encounter type: initial encounter Qualified Code(s): T83.511A - Infection and inflammatory reaction due to indwelling urethral catheter, initial encounter; N39.0 - Urinary tract infection, site not specified PLAN: Plan 1. Continue therapy 2. Discontinue potassium supplementation. Continue spironolactone 25 mg p.o. daily for aortic stenosis/congestive heart failure 3. Hold Cozaar 4. Check orthostatics today 5. Continue Keflex 6. Recheck a BMP and HH on Sunday a.m. 7. Continue tramadol 3 times daily through the weekend and reevaluate on Sunday. Charges/Coding Visit Charges Inpatient E&M: 249[address] [facility] Hosp L1
[2023-12-21] MEDS: Rivaroxaban 10 MG Tablet PO (16:58)
[2023-12-21] MEDS: Mirtazapine 15 MG Tablet PO (21:04)
[2023-12-22 06:00] VITALS: BMI 22.4
[2023-12-22] MEDS: traMADol 50 MG Tablet 25 MG PO ×3 (07:01→21:17)
[2023-12-22] MEDS: Acetaminophen 500 MG Tablet 1000 MG PO ×3 (07:01→21:18)
[2023-12-22] MEDS: Ensure Plus High Protein 120 ML LIQUID PO ×3 (07:01→21:17)
[2023-12-22] MEDS: Cephalexin Suspension 250 MG/5 ML PO.SYRINGE 500 MG PO ×3 (07:05→21:17)
[2023-12-22] MEDS: Spironolactone 25 MG Tablet PO (07:45)
[2023-12-22] MEDS: Lansoprazole 15 MG Capsule.DR PO ×2 (07:45→21:18)
[2023-12-22] MEDS: Furosemide 40 MG Tablet PO (07:45)
[2023-12-22] MEDS: Magnesium Chloride 64 MG Delay Rel.Tablet 128 MG PO (07:45)
[2023-12-22] MEDS: Menthol/Lanolin/Calamine/Znox 113 GM Tube 1 APPLIC TOPICAL ×2 (07:48→21:18)
[2023-12-22 08:42] VITALS: BP 109/51; PULSE 94; RESP 14; TEMP 36.4; O2SAT 97
--- NOTE | 2023-12-22 09:06 | NURSING ---
24 renard removed from surgical sites. 2 renard left d/t risk of incision opening up. Will continue to monitor and reassess tomorrow. New dressing applied to site of current drainage.
--- NOTE | 2023-12-22 09:32 | NURSING ---
Bed zero'd out again and pt reweighed. Weight accurate.
[2023-12-22] MEDS: Rivaroxaban 10 MG Tablet PO (17:35)
[2023-12-22] MEDS: Senna Tablet 2 TABLET PO (21:18)
[2023-12-22] MEDS: Mirtazapine 15 MG Tablet PO (21:18)
[2023-12-22] MEDS: 0.9% Saline Lock 10 ML Syringe IV (21:21)
[2023-12-22 21:33] VITALS: BP 100/53; PULSE 87; RESP 17; TEMP 37.3; O2SAT 99
[2023-12-23 06:00] VITALS: BMI 22.3
[2023-12-23] MEDS: Cephalexin Suspension 250 MG/5 ML PO.SYRINGE 500 MG PO ×3 (06:09→21:11)
[2023-12-23] MEDS: traMADol 50 MG Tablet 25 MG PO ×3 (06:09→21:12)
[2023-12-23] MEDS: Acetaminophen 500 MG Tablet 1000 MG PO ×3 (06:09→21:11)
[2023-12-23] MEDS: Ensure Plus High Protein 120 ML LIQUID PO ×3 (06:10→21:11)
[2023-12-23] MEDS: Senna Tablet 2 TABLET PO (07:42)
[2023-12-23] MEDS: Lansoprazole 15 MG Capsule.DR PO ×2 (07:43→21:11)
[2023-12-23] MEDS: Magnesium Chloride 64 MG Delay Rel.Tablet 128 MG PO (07:43)
[2023-12-23] MEDS: Spironolactone 25 MG Tablet PO (07:43)
[2023-12-23] MEDS: Furosemide 40 MG Tablet PO (07:43)
[2023-12-23] MEDS: Menthol/Lanolin/Calamine/Znox 113 GM Tube 1 APPLIC TOPICAL ×2 (07:43→21:12)
[2023-12-23 09:19] VITALS: BP 113/63; PULSE 86; RESP 16; TEMP 36.6; O2SAT 98
[2023-12-23] MEDS: Rivaroxaban 10 MG Tablet PO (17:04)
[2023-12-23 20:15] VITALS: BP 104/57; PULSE 85; RESP 16; TEMP 36.9; O2SAT 98
[2023-12-23] MEDS: Mirtazapine 15 MG Tablet PO (21:11)
[2023-12-23] MEDS: 0.9% Saline Lock 10 ML Syringe IV (21:36)
[2023-12-24] MEDS: Cephalexin Suspension 250 MG/5 ML PO.SYRINGE 500 MG PO ×3 (05:19→21:15)
[2023-12-24 05:20] LABS: Hematocrit 29.3 % (37-47); Hemoglobin 9.3 g/dL (12.0-15.0)
[2023-12-24] MEDS: Acetaminophen 500 MG Tablet 1000 MG PO ×3 (05:20→21:16)
[2023-12-24] MEDS: Ensure Plus High Protein 120 ML LIQUID PO ×3 (05:20→21:15)
[2023-12-24] MEDS: traMADol 50 MG Tablet 25 MG PO ×3 (05:20→21:16)
[2023-12-24 05:35] VITALS: BP 100/54; PULSE 82; RESP 17; TEMP 37; O2SAT 98; BMI 22.1
[2023-12-24 05:48] LABS: Anion Gap 8 (5-15); BUN 23 mg/dL (7-18); Calcium,Total 8.4 mg/dL (8.5-10.1); Chloride 100 mmol/L (98-107); Creatinine, Serum 0.79 mg/dL (0.55-1.02); EST Glomerular Filtration Rate 73 mL/min (>60); Est Glom Filt Rate - Afr Amer 88 mL/min (>60); Estimated Creatinine Clearance 35.59 ml/min; Glucose 97 mg/dL (74-106); Potassium 4.1 mmol/L (3.5-5.1); Sodium Level 136 mmol/L (136-145)
[2023-12-24] MEDS: Spironolactone 25 MG Tablet PO (08:03)
[2023-12-24] MEDS: Furosemide 40 MG Tablet PO (08:03)
[2023-12-24] MEDS: Magnesium Chloride 64 MG Delay Rel.Tablet 128 MG PO (08:03)
[2023-12-24] MEDS: Lansoprazole 15 MG Capsule.DR PO ×2 (08:03→21:16)
[2023-12-24] MEDS: Menthol/Lanolin/Calamine/Znox 113 GM Tube 1 APPLIC TOPICAL ×2 (08:07→21:16)
--- NOTE | 2023-12-24 09:40 | PCM.PROGNOTE ---
Subjective Subjective Afebrile VSS -blood pressure this morning is 100/54. Cozaar was discontinued last week. Poor oral intake. Heart rate is within normal limits. Maintaining appropriate oxygen saturation on RA Oral intake - FOOD still variable. FLUIDS poor Weight today is 112 pounds and 10 ounces which is down from 118 pounds on 12/20/2023. No bowel movement reported since Sunday. Discussed with nursing - no problems that need addressed. Incontinent of urine so fluid balance is unknown. Reviewed the THERAPY notes Medication list reviewed. Denies lightheadedness, cephalgia, chest pain, shortness of breath at rest, orthopnea, nausea/vomiting/abdominal pain, burning with urination, calf pain. Continues to complain of poor appetite. Tells me she is sleeping well at night. Orthostatic VS's did not show a change in the BP when going from lying to standing but, the HR increased 16 beats. Objective Data Objective Data Vital Signs: Vital Signs Temp Pulse Resp BP Pulse Ox O2 Del Method 98.6 F 82 17 100/54 L 98 Room Air 12/24/23 05:35 12/24/23 05:35 12/24/23 05:35 12/24/23 05:35 12/24/23 05:35 12/23/23 20:20 Oxygen Delivery Method Room Air Weight: 112 lb 10.499 oz Body Mass Index (BMI) 22.1 Intake & Output: Intake and Output for Last 24 Hours 12/22/23 12/23/23 12/24/23 23:59 23:59 23:59 Intake Total 690 / 690 540 / 540 100 / 100 Balance 690 / 690 540 / 540 100 / 100 Lab / Micro Data 12/24/23 05:11 12/24/23 05:11 Labs: Laboratory Results - last 24 hr 12/24/23 05:11: Hgb 9.3 L, Hct 29.3 L, Sodium 136, Potassium 4.1, Chloride 100, Carbon Dioxide 28.0, Anion Gap 8, BUN 23 H, Creatinine 0.79, Estim Creat Clear Calc 35.59, Est GFR (MDRD) Af Amer 88, Est GFR (MDRD) Non-Af 73, BUN/Creatinine Ratio 29.0 H, Glucose 97, Calcium 8.4 L Micro: Microbiology 12/18/23 13:25 Urine Catheter - Gomez Urine Culture - Final Escherichia coli Escherichia coli#2 12/12/23 14:56 Stool Stool Occult Blood (ALLISON) - Final Physical Exam Const alert and no apparent distress General Appearance: cooperative Orientation / Consciousness: Negative for confused HEENT HEENT Narrative: Mucous membranes are a little bit dry today. No evidence of thrush. Eyes no scleral icterus Neck Neck Narrative: Bilateral carotid bruits versus radiation of murmur. Resp normal respiratory effort and normal air movement Resp Narrative: Breath sounds are diminished in the left base which is chronic secondary to elevated left hemidiaphragm. There are rare coarse crackles in the base of the right lung. No wheezing, no tachypnea, no labored respirations. No conversational dyspnea. Cardio regular rate, regular rhythm and no gallops Cardio Narrative: No ectopy. No change in the MM. Rate: Negative for tachycardic GI normal to inspection, nondistended, normoactive bowel sounds, soft to palpation and non-tender Back/Spine Back/Spine Narrative: She is kyphotic. She is not taking a calcium supplement or vitamin D. Extremity no calf tenderness Extremity Narrative: No ankle edema on either side. She has a small amount of pitting edema in the right medial thigh. Skin Skin Narrative: [place] have been removed and the incision is intact with no dehiscence, no jena-incisional erythema and no discharge. General Skin Exam: no breakdown Rashes: no rashes Wound Narrative: Incisions are intact with no purulent discharge but with mild serous drainage, no odor, no jena-incisional erythema and no significant swelling around the incision. Neuro no sensory deficits noted Psych affect normal Psych Narrative: She is calm. does not seem overwhelmingly depressed and she is sleeping better but, appetite remains poor. She is not anxious. She is very polite and grateful for the care she is getting. Appearance: appropriate Attitude: engaged Activity / Motor Behavior: Negative for restless Assessment & Plan Assessment/Plan (1) Debility: (2) Fall: QUALIFIERS: Encounter type: subsequent encounter Qualified Code(s): W19.XXXD - Unspecified fall, subsequent encounter (3) Closed intertrochanteric fracture of femur: QUALIFIERS: Encounter type: subsequent encounter Fracture alignment: displaced Laterality: right Fracture healing: with routine healing Qualified Code(s): S72.141D - Displaced intertrochanteric fracture of right femur, subsequent encounter for closed fracture with routine healing (4) Status post open reduction and internal fixation (ORIF) of fracture: (5) UTI (urinary tract infection) due to urinary indwelling catheter: QUALIFIERS: Indwelling urinary catheter type: indwelling urethral catheter Encounter type: initial encounter Qualified Code(s): T83.511A - Infection and inflammatory reaction due to indwelling urethral catheter, initial encounter; N39.0 - Urinary tract infection, site not specified (6) Critical aortic valve stenosis: PLAN: Plan 1. Continue therapy 2. Orthostatic vital signs this morning 3. Remeron was increased to 15 mg last Sunday. Hope to see an increase in appetite 4. Encouraged her to increase her fluid intake today. 5. Change Lasix to 40 mg p.o. every 48 hours. 6. Recheck a BMP later in the week. 7. No bowel movement since 12/21/2023-will give milk of mag today. 8. Continue Keflex for treatment of UTI related to urine retention and Gomez catheter. Gomez is out and she is incontinent of urine. Will check 3 more post void residuals. Charges/Coding Visit Charges Inpatient E&M: 48969 Subs Hosp L1
[2023-12-24 10:05] VITALS: BP 105/67; BP 108/60; BP 111/61; PULSE 81; PULSE 85; PULSE 97
[2023-12-24] MEDS: Rivaroxaban 10 MG Tablet PO (16:53)
[2023-12-24] MEDS: 0.9% Saline Lock 10 ML Syringe IV ×2 (16:55→21:45)
[2023-12-24 17:34] VITALS: BP 111/65; PULSE 90; RESP 16; TEMP 36.9; O2SAT 97
[2023-12-24] MEDS: Mirtazapine 15 MG Tablet PO (21:16)
[2023-12-24] MEDS: Senna Tablet 2 TABLET PO (21:16)
[2023-12-25] MEDS: Cephalexin Suspension 250 MG/5 ML PO.SYRINGE 500 MG PO ×3 (05:19→21:14)
[2023-12-25] MEDS: traMADol 50 MG Tablet 25 MG PO ×3 (05:19→21:14)
[2023-12-25] MEDS: Acetaminophen 500 MG Tablet 1000 MG PO ×3 (05:19→21:13)
[2023-12-25 05:30] VITALS: BP 135/68; PULSE 88; RESP 15; TEMP 36.9; O2SAT 98; BMI 22.4
[2023-12-25] MEDS: Spironolactone 25 MG Tablet PO (07:52)
[2023-12-25] MEDS: Magnesium Chloride 64 MG Delay Rel.Tablet 128 MG PO (07:52)
[2023-12-25] MEDS: Senna Tablet 2 TABLET PO ×2 (07:52→21:13)
[2023-12-25] MEDS: Lansoprazole 15 MG Capsule.DR PO ×2 (07:52→21:13)
[2023-12-25] MEDS: Menthol/Lanolin/Calamine/Znox 113 GM Tube 1 APPLIC TOPICAL ×2 (07:53→21:14)
--- NOTE | 2023-12-25 09:10 | PCM.PROGNOTE ---
Subjective Subjective Keflex #5/7 Afebrile VSS - Orthostatics were negative yesterday and today. Maintaining appropriate oxygen saturation on RA Oral intake - FOOD slowly improving FLUIDS improving, she had 1020 in yesterday and another 540 overnight. Lasix was changed to every 48 hours yesterday. wt is stable PVR yesterday was 424 and today at 2 AM it was 214. Last BM was 12/24/23. Discussed with nursing - no problems that need addressed. Remains incontinent of urine. Sleeping good at night now. There is a very small area of dehiscence in the proximal incision which is draining some bloody fluid. Nursing applied steri strips. Reviewed the THERAPY notes Medication list reviewed. Not c/o pain. Denies lightheadedness, CP, SOB, palpitations, N/V/abd pain, painful urination and calf pain. Objective Data Objective Data Vital Signs: Vital Signs Temp Pulse Resp BP Pulse Ox O2 Del Method 98.4 F 88 15 135/68 H 98 Room Air 12/25/23 05:30 12/25/23 05:30 12/25/23 05:30 12/25/23 05:30 12/25/23 05:30 12/25/23 05:30 Oxygen Delivery Method Room Air Weight: 113 lb 15.664 oz Body Mass Index (BMI) 22.4 Intake & Output: Intake and Output for Last 24 Hours 12/23/23 12/24/23 12/25/23 23:59 23:59 23:59 Intake Total 540 / 540 1020 / 1020 540 / 540 Output Total 500 / 500 Balance 540 / 540 520 / 520 540 / 540 Lab / Micro Data 12/24/23 05:11 12/24/23 05:11 Micro: Microbiology 12/18/23 13:25 Urine Catheter - Gomez Urine Culture - Final Escherichia coli Escherichia coli#2 12/12/23 14:56 Stool Stool Occult Blood ([facility]) - Final Physical Exam Const alert and no apparent distress Constitutional Narrative: Pleasant and interacting very well with staff. Not tearful and affect is not flat. General Appearance: cooperative Resp Resp Narrative: few coarse crackles in the R base and diminished BS's in the L base - unchanged. Effort and Inspection: Negative for tachypneic Cardio regular rate, regular rhythm and no gallops Cardio Narrative: MM is unchanged. No ectopy GI normal to inspection, nondistended, normoactive bowel sounds, soft to palpation and non-tender GI Narrative: No guarding with palpation. Extremity no calf tenderness Extremity Narrative: No edema in the ankles. Skin Wound Narrative: there is a small area of dehiscence in the distal end of the proximal incision that is bleeding when she stands up. Nurses have been steri-stripping. There is no jena-incisional erythema and no edema around the incisions. Skin tears have healed. Assessment & Plan Assessment/Plan (1) Debility: (2) Fall: QUALIFIERS: Encounter type: subsequent encounter Qualified Code(s): W19.XXXD - Unspecified fall, subsequent encounter (3) Closed intertrochanteric fracture of femur: QUALIFIERS: Encounter type: subsequent encounter Fracture alignment: displaced Laterality: right Fracture healing: with routine healing Qualified Code(s): S72.141D - Displaced intertrochanteric fracture of right femur, subsequent encounter for closed fracture with routine healing (4) Status post open reduction and internal fixation (ORIF) of fracture: (5) UTI (urinary tract infection) due to urinary indwelling catheter: QUALIFIERS: Indwelling urinary catheter type: indwelling urethral catheter Encounter type: initial encounter Qualified Code(s): T83.511A - Infection and inflammatory reaction due to indwelling urethral catheter, initial encounter; N39.0 - Urinary tract infection, site not specified (6) Critical aortic valve stenosis: (7) Urinary retention: PLAN: Plan 1. Continue therapy. 2. Use a silver nitrate stick on the area of the proximal incision that is bleeding and then steri strip. If it continues to bleed may have to put in a stitch to achieve hemostasis. 3. Try adding Flomax to the drug regimen to see if the urine retention resolves. Will order orthostatics for the next 3 days. 4. will follow up with cardiology post DC. She has critical on the ECHO but, she is asymptomatic at the present time......this will need to be followed by cardiology. Charges/Coding Visit Charges Inpatient E&M: 41326 Subs Hosp L1
[2023-12-25 10:21] VITALS: BP 121/73; BP 124/60; BP 125/61; PULSE 79; PULSE 81; PULSE 89
[2023-12-25] MEDS: Ensure Plus High Protein 120 ML LIQUID PO ×2 (14:50→21:14)
--- NOTE | 2023-12-25 16:01 | CASEMGMT ---
Social Work SW confirmed with trauma coordinator at TCU that pt is accepted on 12/28. SW phoned son, Xavier, to update. Xavier expressed appreciation. Plan: DC 12/28 to TCU, skilled AALNNA Muller
[2023-12-25] MEDS: Tamsulosin HCl 0.4 MG Capsule PO (17:41)
[2023-12-25] MEDS: Rivaroxaban 10 MG Tablet PO (17:41)
[2023-12-25 18:00] VITALS: BP 103/61; PULSE 85; RESP 16; TEMP 37.1; O2SAT 98
[2023-12-25] MEDS: Mirtazapine 15 MG Tablet PO (21:13)
[2023-12-26] MEDS: traMADol 50 MG Tablet 25 MG PO ×3 (05:13→20:52)
[2023-12-26] MEDS: Cephalexin Suspension 250 MG/5 ML PO.SYRINGE 500 MG PO ×3 (05:14→20:50)
[2023-12-26] MEDS: Ensure Plus High Protein 120 ML LIQUID PO ×3 (05:14→20:51)
[2023-12-26] MEDS: Acetaminophen 500 MG Tablet 1000 MG PO ×3 (05:14→20:51)
[2023-12-26 06:00] VITALS: BP 113/59; PULSE 85; RESP 16; TEMP 36.6; O2SAT 98; BMI 21.8
[2023-12-26] MEDS: Senna Tablet 2 TABLET PO ×2 (08:02→20:51)
[2023-12-26] MEDS: Lansoprazole 15 MG Capsule.DR PO ×2 (08:02→20:51)
[2023-12-26] MEDS: Magnesium Chloride 64 MG Delay Rel.Tablet 128 MG PO (08:02)
[2023-12-26] MEDS: Furosemide 40 MG Tablet PO (08:02)
[2023-12-26] MEDS: Spironolactone 25 MG Tablet PO (08:02)
[2023-12-26] MEDS: Menthol/Lanolin/Calamine/Znox 113 GM Tube 1 APPLIC TOPICAL ×2 (08:09→20:53)
[2023-12-26 09:17] VITALS: BP 112/62; BP 113/60; BP 115/58; PULSE 80; PULSE 84; PULSE 87
[2023-12-26] MEDS: Silver Nitrate (BKC) 1 EACH TOPICAL (10:02)
[2023-12-26] MEDS: 0.9% Saline Lock 10 ML Syringe IV (14:30)
[2023-12-26] MEDS: Tamsulosin HCl 0.4 MG Capsule PO (17:25)
[2023-12-26] MEDS: Rivaroxaban 10 MG Tablet PO (17:25)
[2023-12-26 17:41] VITALS: BP 140/76; PULSE 85; RESP 16; TEMP 36.8; O2SAT 98
[2023-12-26 20:50] VITALS: PULSE 85; RESP 16; O2SAT 98
[2023-12-26] MEDS: Mirtazapine 15 MG Tablet PO (20:52)
[2023-12-26] MEDS: Lactobacillis Acidophilus 1 CAP PO (20:53)
[2023-12-27 06:00] VITALS: BP 101/60; PULSE 88; RESP 16; TEMP 36.8; O2SAT 96; BMI 21.8
[2023-12-27] MEDS: Ensure Plus High Protein 120 ML LIQUID PO ×2 (06:04→13:03)
[2023-12-27] MEDS: Acetaminophen 500 MG Tablet 1000 MG PO ×3 (06:04→21:01)
[2023-12-27] MEDS: Cephalexin Suspension 250 MG/5 ML PO.SYRINGE 500 MG PO ×2 (06:04→13:00)
[2023-12-27] MEDS: traMADol 50 MG Tablet 25 MG PO ×3 (06:05→21:06)
[2023-12-27] MEDS: Senna Tablet 2 TABLET PO ×2 (07:53→21:01)
[2023-12-27] MEDS: Spironolactone 25 MG Tablet PO (07:53)
[2023-12-27] MEDS: Magnesium Chloride 64 MG Delay Rel.Tablet 128 MG PO (07:53)
[2023-12-27] MEDS: Lactobacillis Acidophilus 1 CAP PO ×2 (07:53→21:01)
[2023-12-27] MEDS: Lansoprazole 15 MG Capsule.DR PO ×2 (07:53→21:01)
[2023-12-27] MEDS: Menthol/Lanolin/Calamine/Znox 113 GM Tube 1 APPLIC TOPICAL ×2 (07:57→21:03)
[2023-12-27 16:50] VITALS: BP 94/54; PULSE 83; RESP 16; TEMP 36.6; O2SAT 100
[2023-12-27] MEDS: Tamsulosin HCl 0.4 MG Capsule PO (17:07)
[2023-12-27] MEDS: Rivaroxaban 10 MG Tablet PO (17:07)
[2023-12-27] MEDS: 0.9% Saline Lock 10 ML Syringe IV (17:16)
[2023-12-27] MEDS: Mirtazapine 15 MG Tablet PO (21:00)
[2023-12-28] MEDS: Acetaminophen 500 MG Tablet 1000 MG PO ×3 (05:41→20:53)
[2023-12-28] MEDS: Ensure Plus High Protein 120 ML LIQUID PO ×2 (05:44→13:51)
[2023-12-28] MEDS: traMADol 50 MG Tablet 25 MG PO ×3 (05:55→20:56)
[2023-12-28 06:00] VITALS: BP 106/51; PULSE 92; RESP 16; TEMP 36.7; O2SAT 96
[2023-12-28 06:45] LABS: Anion Gap 7 (5-15); BUN 21 mg/dL (7-18); BUN/Creat Ratio 29.4 RATIO (10-20); Calcium,Total 8.8 mg/dL (8.5-10.1); Chloride 99 mmol/L (98-107); Creatinine, Serum 0.71 mg/dL (0.55-1.02); EST Glomerular Filtration Rate 82 mL/min (>60); Est Glom Filt Rate - Afr Amer 100 mL/min (>60); Estimated Creatinine Clearance 35.59 ml/min; Glucose 93 mg/dL (74-106); Magnesium 2.1 mg/dL (1.6-2.6); Potassium 4.2 mmol/L (3.5-5.1); Sodium Level 134 mmol/L (136-145)
[2023-12-28] MEDS: Spironolactone 25 MG Tablet PO (08:05)
[2023-12-28] MEDS: Lansoprazole 15 MG Capsule.DR PO ×2 (08:05→20:53)
[2023-12-28] MEDS: Magnesium Chloride 64 MG Delay Rel.Tablet 128 MG PO (08:06)
[2023-12-28] MEDS: Furosemide 40 MG Tablet PO (08:06)
[2023-12-28] MEDS: Menthol/Lanolin/Calamine/Znox 113 GM Tube 1 APPLIC TOPICAL ×2 (08:06→21:05)
[2023-12-28] MEDS: Lactobacillis Acidophilus 1 CAP PO ×2 (08:06→20:53)
[2023-12-28 09:00] VITALS: BMI 21.9
--- NOTE | 2023-12-28 13:06 | CASEMGMT ---
Social Work IDT met patient, son for Team meeting. Discussed patient's progress in PT/OT/ST/SN. Educated to Medicare approval of 18 days. Confirmed DC 12/28 to TCU for ongoing therapy. No other needs or concerns noted. Plan: DC to TCU 12/28 ALANNA MullerW
[2023-12-28] MEDS: Rivaroxaban 10 MG Tablet PO (16:13)
[2023-12-28] MEDS: Tamsulosin HCl 0.4 MG Capsule PO (16:14)
[2023-12-28 18:00] VITALS: BP 104/54; PULSE 95; RESP 17; TEMP 37.2; O2SAT 97
[2023-12-28] MEDS: Senna Tablet 2 TABLET PO (20:53)
[2023-12-28] MEDS: Mirtazapine 15 MG Tablet PO (20:55)
[2023-12-29] MEDS: Acetaminophen 500 MG Tablet 1000 MG PO (05:24)
[2023-12-29] MEDS: traMADol 50 MG Tablet 25 MG PO (05:25)
[2023-12-29] MEDS: Ensure Plus High Protein 120 ML LIQUID PO (05:25)
[2023-12-29 05:29] VITALS: BMI 21.7
[2023-12-29 05:32] VITALS: BP 102/61; PULSE 68; RESP 15; TEMP 36.4; O2SAT 96
--- NOTE | 2023-12-29 08:41 | PCM.PROGNOTE ---
Subjective Subjective Late entry for 12/28/23 Nikki was seen on TEAM rounds today. Her son Xavier and his were present in the room and son Prakash participated by phone. Afebrile VSS - Maintaining appropriate oxygen saturation on RA Oral intake - FOOD [] FLUIDS [] Discussed with nursing - no problems that need addressed Reviewed the THERAPY notes Medication list reviewed. Objective Data Objective Data Vital Signs: Vital Signs Temp Pulse Resp BP Pulse Ox O2 Del Method 97.6 F L 68 15 102/61 96 Room Air 12/29/23 05:32 12/29/23 05:32 12/29/23 05:32 12/29/23 05:32 12/29/23 05:32 12/29/23 05:32 Oxygen Delivery Method Room Air Weight: 110 lb 7.225 oz Body Mass Index (BMI) 21.7 Intake & Output: Intake and Output for Last 24 Hours 12/27/23 12/28/23 12/29/23 23:59 23:59 23:59 Intake Total 1280 / 1280 780 / 880 200 / 200 Output Total 300 / 300 100 / 100 Balance 980 / 980 680 / 780 200 / 200 Lab / Micro Data 12/24/23 05:11 12/28/23 05:02 Micro: Microbiology 12/18/23 13:25 Urine Catheter - Gomez Urine Culture - Final Escherichia coli Escherichia coli#2 12/12/23 14:56 Stool Stool Occult Blood ([facility]) - Final
--- NOTE | 2023-12-29 08:42 | TREXTCAR_ITS ---
Diet Diet Order/Speech Therapy: 12/11/23 18:16 Diet: Regular - General Food consistency:: Easy to Chew Liquid Consistency:: Regular/Thin Dietary Modifications:: Fortified Foods Type of Dietary Supplement:: Magic Cup Dessert Is pt able to select menu?: Yes Fluid restriction:: 1500 mL Diet Comments: Magic cup L & D, Distant supervision, SMALL PORTIONS Routine Orders/Code Status Enema Type: Fleetz Enema Frequency: Daily PRN Suppository Type: Dulcolax 10mg Suppository Frequency: Daily PRN O2 Liters per Minute: 1-2 O2 Frequency: PRN Keep PO Greater than or Equal to (%): 90 Wound(s) RT HIP: Wound Type: Surgical Incision RT MEDIAL THIGH: Wound Type: Surgical Incision RT DISTAL THIGH: Wound Type: Surgical Incision (The incisions are on the R lateral thigh and all are healing well ) RT THIGH SKIN TEAR: Wound Type: Skin Tear (Healed) Therapies Weight Bearing: Full weight bearing Extremity Affected:: Right Lower Physical Therapy: Eval and Treat Occupational Therapy: Eval and Treat Speech Therapy: Eval and Treat Problem/Diagnosis (1) Debility: Status: Acute Code(s): R53.81 - Other malaise (2) Fall: Status: Inactive Code(s): W19.XXXA - Unspecified fall, initial encounter Comment: Ground-level mechanical fall (3) Closed intertrochanteric fracture of femur: Status: Inactive Code(s): S72.143A - Displaced intertrochanteric fracture of unspecified femur, initial encounter for closed fracture (4) Status post open reduction and internal fixation (ORIF) of fracture: Status: Acute Code(s): Z98.890 - Other specified postprocedural states; Z87.81 - Personal history of (healed) traumatic fracture Comment: 12/08/23 had ORIF with CM nailing by Dr. Soni. (5) UTI (urinary tract infection) due to urinary indwelling catheter: Status: Resolved Code(s): T83.511A - Infection and inflammatory reaction due to indwelling urethral catheter, initial encounter; N39.0 - Urinary tract infection, site not specified (6) Critical aortic valve stenosis: Status: Chronic Code(s): I35.0 - Nonrheumatic aortic (valve) stenosis (7) Urinary retention: Status: Acute Code(s): R33.9 - Retention of urine, unspecified Comment: Started on Flomax. (8) Skin tear: Status: Resolved (9) Hypomagnesemia: Status: Resolved Code(s): E83.42 - Hypomagnesemia (10) Hypophosphatemia: Status: Resolved Code(s): E83.39 - Other disorders of phosphorus metabolism (11) Depression: Status: Acute Code(s): F32.A - Depression, unspecified Comment: Started on Remeron and being discharged on 15 mg nightly. She is sleeping better however appetite is still somewhat decreased. Plan 1. Discharge to transitional care unit for additional halfway/therapy prior to going home with family. 2. check post void residuals X 3 following DC to TCU 3. Will need follow up with Cardiology for critical aortic stenosis diagnosed o n a TTE. 4. Recommend she have a bone mineral density study following DC from TCU. I suspect she has osteoporosis. I did not start a bisphosphonate due to hx of large HH, swallowing difficulties and GERD. 7. Consider starting Aricept for BCAT of Allergies/Procedures Done in Hospital Allergies No Known Allergies Allergy (Verified 12/07/23 14:01) Procedures: 2-D Echocardiogram (OTIS 11/1923: Interpretation Summary Normal LV size. Left ventricular systolic function is normal. The estimated ejection fraction is 55 %. Stage 1 diastolic dysfunction. Mean aortic valve gradient 71 mmHg. Pulmonary artery systolic pressure is 30 mmHg. There is mild to moderate mitral annular calcif) and - (ORIF of R hip fx on 12/08/23 with a cephalomedullary nail by Dr. Soni.) Type of Care/Length of Stay Estimated LOS: Convalescent Care Less Than 30 days Type of Care Needed: Skilled Rehab Potential: Good Prognosis: Good Additional Orders/Day of Discharge Additional Orders: Post void residual X 3. She retains urine and was started on Flomax. Orthostatics have been negative. H&P will serve as current which was dated: 12/12/23 Day of Discharge: 12/29/23 Dietary and Speech Recommendations Dietitian Recommendations/Changes: 1.Continue Regular diet to optimize oral intakes and fluid restriction per MD to manage fluid retention. Will order fortified foods. 2. Continue Ensure Plus High Protien supplement to medpass 120mL 3x daily to provide supplemental energy. 3. Continue Magic Cup BID with meals to provide supplemental energy 4. Continue remron to help stimulate appetite. 5. If it aligns with pt's goals of care and appetite stimulant doesn't help to improve appetite, pt would be appropriate for a feeding tube to supplement PO diet d/t inadequate oral intakes. Follow Up Care Please follow up with your Primary Care Physician in: within 2 weeks after DC from TCU Please Follow Up With: Dwayne Soni MD When: Following DC form TCU. Discharge Plan Admission Admit Date/Time: 12/11/23 18:00 Primary Reason for Your Visit: Debility due to R hip fracture. Attending Provider: Courtney Pierre Primary Care Provider: DULCE MORRELL Discharge Orders/Prescriptions Prescriptions: New bisacodyl 10 mg Suppository 10 mg [place] X1 PRN (Reason: Constipation) Qty: 1 0RF furosemide 40 mg Tablet 40 mg PO Q48H Qty: 1 0RF L.acidoph,saliva-B.bif-S.therm 175 mg Capsule 1 cap PO DAILY Qty: 1 0RF Ensure Plus High Protein 0.08 gram-1.5 kcal/mL Liquid 120 ml PO TID Qty: 1 0RF lansoprazole 15 mg Capsule,Delayed Release(Dr/Ec) 15 mg PO BID Qty: 1 0RF magnesium chloride [Mag 64] 64 mg Tablet,Delayed Release (Dr/Ec) 128 mg PO DAILY Qty: 1 0RF magnesium hydroxide 400 mg/5 mL Suspension 30 ml PO X1 PRN (Reason: Constipation) Qty: 30 0RF menthol-zinc oxide [Calmoseptine] 0.44-20.6 % Ointment 1 applic topical BID Qty: 113 0RF Protocol: *Topical Application Instructions APPLICATION INSTRUCTIONS: BUTTOCKS mirtazapine 15 mg Tablet 15 mg PO 2100 Qty: 1 0RF (DME) Petrolatum 33% [Eucerin Eqivalent] See Rx Instructions .ROUTE .MEDSUPPLY Qty: 1 0RF Rx Instructions: Apply to the legs distal to the knees. sennosides [senna] 8.6 mg Tablet 8.6 mg PO BID Qty: 1 0RF Xarelto 10 mg Tablet 10 mg PO DINNER Qty: 7 0RF Rx Instructions: DC after the dose on 01/05/24 tramadol 50 mg Tablet 25 mg PO Q8H PRN (Reason: pain 3-10) Qty: 1 0RF spironolactone 25 mg Tablet 25 mg PO DAILY Qty: 1 0RF tamsulosin 0.4 mg Capsule 0.4 mg PO DAILY@1730 Qty: 1 0RF Rx Instructions: One daily for urine retention Changed acetaminophen 500 mg Tablet 1,000 mg PO Q8 PRN (Reason: Pain 1-10 Or Fever) Qty: 1 0RF Discontinued oxycodone 5 mg Tablet 5 mg PO Q4H PRN PRN (Reason: Pain Score 4-10) Qty: 0 0RF Xarelto 10 mg Tablet 10 mg PO DINNER Qty: 0 0RF Referrals / Follow Up: DULCE MORRELL [Other] - 01/01/24 2:45 pm Isauro tucker-Cardiology [Other] - 04/15/24 12:45 pm (You will be see for Critical Aortic Stenosis) Babak Aggarwal DPM [Med Staff - Active Staff] - 03/21/24 10:00 am Dwayne Soni MD [Med Staff - Active Staff] - 12/31/23 2:15 pm Disposition Disposition (needs filled in before D/C Order can be placed): [facility] (2) Fall Qualifiers: Encounter type: subsequent encounter Qualified Code(s): W19.XXXD - Unspecified fall, subsequent encounter (3) Closed intertrochanteric fracture of femur Qualifiers: Encounter type: subsequent encounter Fracture alignment: displaced Laterality: right Fracture healing: with routine healing Qualified Code(s): S72.141D - Displaced intertrochanteric fracture of right femur, subsequent encounter for closed fracture with routine healing (5) UTI (urinary tract infection) due to urinary indwelling catheter Qualifiers: Indwelling urinary catheter type: indwelling urethral catheter Encounter type: initial encounter Qualified Code(s): T83.511A - Infection and inflammatory reaction due to indwelling urethral catheter, initial encounter; N39.0 - Urinary tract infection, site not specified (11) Depression Qualifiers: Depression Type: unspecified Qualified Code(s): F32.A - Depression, unspecified
[2023-12-29] MEDS: Lactobacillis Acidophilus 1 CAP PO (09:03)
[2023-12-29] MEDS: Spironolactone 25 MG Tablet PO (09:03)
[2023-12-29] MEDS: Lansoprazole 15 MG Capsule.DR PO (09:03)
[2023-12-29] MEDS: Magnesium Chloride 64 MG Delay Rel.Tablet 128 MG PO (09:03)
[2023-12-29] MEDS: Menthol/Lanolin/Calamine/Znox 113 GM Tube 1 APPLIC TOPICAL (09:03)
[2023-12-29 09:23] VITALS: BP 111/59; PULSE 82; RESP 18; TEMP 36.3; O2SAT 97
--- NOTE | 2023-12-29 09:27 | DS.PCM_ITS ---
Providers Date of Admission: 12/11/23 Date of Discharge: 12/29/23 Primary Care Physician: THEODORE MORRELL Reason For Visit: RIGHT HIP FRACTURE Diagnosis Discharge Diagnosis (1) Debility: Status: Acute Code(s): R53.81 - Other malaise (2) Fall: Status: Inactive Code(s): W19.XXXA - Unspecified fall, initial encounter Qualifiers: Encounter type: subsequent encounter Qualified Code(s): W19.XXXD - Unspecified fall, subsequent encounter (3) Closed intertrochanteric fracture of femur: Status: Inactive Code(s): S72.143A - Displaced intertrochanteric fracture of unspecified femur, initial encounter for closed fracture Qualifiers: Encounter type: subsequent encounter Fracture alignment: displaced F racture healing: with routine healing Laterality: right Qualified Code(s): S 72.141D - Displaced intertrochanteric fracture of right femur, subsequent encounter for closed fracture with routine healing (4) Status post open reduction and internal fixation (ORIF) of fracture: Status: Acute Code(s): Z98.890 - Other specified postprocedural states; Z87.81 - Personal history of (healed) traumatic fracture (5) Acute blood loss anemia: Status: Acute Code(s): D62 - Acute posthemorrhagic anemia Plan: Hemoglobin is up to 9.3 on 12/24/2023. (6) UTI (urinary tract infection) due to urinary indwelling catheter: Status: Resolved Code(s): T83.511A - Infection and inflammatory reaction due to indwelling urethral catheter, initial encounter; N39.0 - Urinary tract infection, site not specified Qualifiers: Encounter type: initial encounter Indwelling urinary catheter type: i ndwelling urethral catheter Qualified Code(s): T83.511A - Infection and inflammatory reaction due to indwelling urethral catheter, initial encounter; N39.0 - Urinary tract infection, site not specified Plan: Due to combined urine retention and Gomez catheter. (7) Acute diastolic (congestive) heart failure: Status: Resolved Code(s): I50.31 - Acute diastolic (congestive) heart failure Plan: Did not tolerate low-dose Cozaar. She is being discharged on spironolactone daily and Lasix every 48 hours. Would continue daily weights and accurate intake and output. (8) Critical aortic valve stenosis: Status: Chronic Code(s): I35.0 - Nonrheumatic aortic (valve) stenosis Plan: With mitral valve insufficiency. Follow-up with [facility] cardiology has been scheduled. (9) Urinary retention: Status: Chronic Code(s): R33.9 - Retention of urine, unspecified Plan: Started on Flomax. Plan 3 postvoid residuals following transfer to transitional care. (10) Obstipation: Status: Resolved Code(s): K59.00 - Constipation, unspecified Plan: Urine retention continued despite regular bowel function. (11) Hypomagnesemia: Status: Resolved Code(s): E83.42 - Hypomagnesemia (12) Hypophosphatemia: Status: Resolved Code(s): E83.39 - Other disorders of phosphorus metabolism (13) Depression: Status: Acute Code(s): F32.A - Depression, unspecified Qualifiers: Depression Type: unspecified Qualified Code(s): F32.A - Depression, unspecified Plan: Started on Remeron 7.5 mg and transition to 15 mg after 1 week. Insomnia has resolved but still has variable appetite/oral intake. (14) Skin tear: Status: Resolved (15) Hiatal hernia: Status: Chronic Code(s): K44.9 - Diaphragmatic hernia without obstruction or gangrene (16) GERD (gastroesophageal reflux disease): Status: Chronic Code(s): K21.9 - Gastro-esophageal reflux disease without esophagitis Qualifiers: Esophagitis presence: esophagitis presence not specified Qualified Code(s): K21.9 - Gastro-esophageal reflux disease without esophagitis Plan 1. Discharge to transitional care unit for additional jail/therapy prior to going home with family. 2. check post void residuals X 3 following DC to TCU 3. Will need follow up with Cardiology for critical aortic stenosis diagnosed on a TTE. 4. Recommend she have a bone mineral density study following DC from TCU. I suspect she has osteoporosis. I did not start a bisphosphonate due to hx of large HH, swallowing difficulties and GERD. 7. Consider starting Aricept for BCAT of Medications at Discharge Home Medications L.acidophil,salivari-Bifido bifidum-Strep thermoph 175 mg capsule 1 cap PO DAILY Supplement #1 cap 12/29/23 Petrolatum 33% [Eucerin Eqivalent] 12/29/23 acetaminophen 500 mg tablet 1,000 mg (2 x 500 mg) PO Q8 PRN Pain 1-10 Or Fever #1 TAB 12/29/23 bisacodyl 10 mg rectal suppository 10 mg WA X1 PRN Constipation #1 ea 12/29/23 food supplemt, lactose-reduced 0.08 gram-1.5 kcal/mL oral liquid (Ensure Plus High Protein) 120 ml PO TID Supplement #1 mL 12/29/23 furosemide 40 mg tablet 40 mg PO Q48H Diuretic #1 TAB 12/29/23 lansoprazole 15 mg capsule,delayed release 15 mg PO BID GERD #1 cap 12/29/23 magnesium chloride 64 mg (magnesium chloride) tablet,delayed release (Mag 64) 128 mg (2 x 64 mg) PO DAILY Supplement #1 TAB 12/29/23 magnesium hydroxide 400 mg/5 mL oral suspension 30 ml PO X1 PRN Constipation #30 mL 12/29/23 menthol 0.44 %-zinc oxide 20.6 % topical ointment (Calmoseptine) 1 applic topical BID Redness to buttocks #113 grams 12/29/23 mirtazapine 15 mg tablet 15 mg PO 2100 Appetite stimulant #1 TAB 12/29/23 rivaroxaban 10 mg tablet (Xarelto) 10 mg PO DINNER Anticoagulant #7 tabs 12/29/23 sennosides 8.6 mg tablet (senna) 8.6 mg PO BID Constipation #1 TAB 12/29/23 spironolactone 25 mg tablet 25 mg PO DAILY Blood pressure #1 TAB 12/29/23 tamsulosin 0.4 mg capsule 0.4 mg PO DAILY@1730 Urine retention #1 cap 12/29/23 tramadol 50 mg tablet 25 mg (1/2 x 50 mg) PO Q8H PRN pain 3-10 #1 TAB 12/29/23 Hospital Course Operations - (Open reduction internal fixation of right hip fracture with a cephalomedullary nail by Dr. Soni on 12/08/2023.) Procedures 2-D Echocardiogram (nterpretation Summary Normal LV size. Left ventricular systolic function is normal. The estimated ejection fraction is 55 %. Stage 1 diastolic dysfunction. Mean aortic valve gradient 71 mmHg. Pulmonary artery systolic pressure is 30 mmHg. There is mild to moderate mitral annular calcification. Mild-) Summary of Care Provided Minutes Spent on Discharge: 35 Hospital Course: YEIMY PANIAGUA, is a 88 YO F with a PMH of GERD/hiatal hernia (on no RX medications at the time of admission to the hospital) who presented to the ED at [facility] on 12/07/2023 following a mechanical fall from her chair at home. She denied syncope and also denied lightheadedness. She lives alone. Plain x-ray of the pelvis at admission showed a comminuted displaced fracture of the intertrochanteric region of the proximal right femur with cephalic migration of the distal fracture fragment. She was admitted to the hospitalist service. Consult was obtained with Dr. Soni and she was taken to surgery on 12/08/2023 for open reduction internal fixation with a cephalomedullary nail. Postoperative complications included acute blood loss anemia and urine retention for which she had Gomez catheter. Hemoglobin on 12/07/2023 was 13 and on 12/11/2023 was 7.0. A recheck later in the day showed a hemoglobin of 7.9. UA on 12/10/2023 showed 0-5 WBCs and was nitrite negative. There was 2+ bacteria present. She was transferred to the acute inpatient rehab unit at [facility] on 12/11/2023 for 3 hours of therapy daily to restore independence/function at or near her level prior to the recent fall. Xarelto 10 mg daily was ordered for DVT prophylaxis. Weight at admission to rehab was up 26 lbs from admission to the hospital. Phosphorus and magnesium were both low at presentation to rehab and supplementation was ordered. On physical examination she had 4+ pitting edema both lower extremities with pitting edema in both posterior thighs in addition to the ankles and pretibial areas. After a few deep breaths the lungs are clear to auscultation. Her had in October and she was very depressed at presentation to rehab. She had insomnia and had very poor appetite. She had lost weight and felt weak. She had a harsh systolic murmur at the second right intercostal space with radiation to the left ventricular outflow tract, lower left sternal border, apex and into the left axilla. A transthoracic echocardiogram was ordered and showed mild concentric left ventricular hypertrophy with an estimated ejection fraction of 55%. There was stage I diastolic dysfunction present with no wall motion abnormalities. The atria were of normal size. There was mild to moderate mitral annular calcification with 1- 2+ MR. The aortic valve was trileaflet with calcification. The mean aortic valve gradient was 71 which is consistent with critical aortic stenosis. She was started on intravenous Lasix, Cozaar 25 mg daily and Aldactone. Blood pressure did not tolerate Cozaar and this was discontinued prior to discharge from rehab. She was also started on Remeron 7.5 mg and was transition to 15 mg after 1 week. The insomnia resolved but she continued to have variable intake. With diuresis her weight dropped from 132 pounds and 8 ounces at admission to rehab to 111 pounds at discharge. With diuresis the hemoglobin increased from 7 at admission to rehab to 9.3 prior to discharge. She did not require transfusion. Appetite has gradually improved with increasing the Remeron to 15 mg and she is taking 50 to 74% of the majority of her meals. The dietitian has been following her and providing supplements. While on rehab she was retaining urine and a KUB was obtained which showed a large amount of fecal retention. She was started on scheduled stool softeners and was given laxatives. After several bowel movements she continued to retain urine. She was started on Flomax in hopes that this would improve urine retention. On 12/18/2023 the urine appeared cloudy with some sediment and a UA was obtained and showed 5-10 white blood cells with 1+ bacteria. The specimen was obtained from a catheter. Urine culture showed 2 different types of E. coli and both were pansensitive. She received an appropriate course of antibiotics. Lab 1 day following discharge from rehab showed a mildly decreased sodium at 134 with a BUN of 21 and a stable creatinine at 0.71. Potassium was 4.2 and the magnesium was 2.1. Calcium was normal. Vitamin D level was checked and was within normal limits on no supplementation. Hemoccult stool was negative. Canseco improved significantly while on rehab but, she was not yet ready to return safely home with family. She was transferred to [facility] on 12/29/23 for additional therapy. We are hopeful that she will be able to go home with family at [facility]. She has 2 sons, Prakash and Xavier who are very supportive and involved in her care. She ill need to follow up with her PCP, Dr. Theodore Morrell at [facility] from [facility]. An appt has been made for her to follow up with [facility] cardiology (Dr. Viki Rucker MD) for . She also has an appts to follow up with Dr. Liliya Ashton for podiatric care and Dr. Soni for orthopedics. Physical Exam Const alert and no apparent distress Constitutional Narrative: Pleasant and interacting very well with staff. Not tearful and affect is not flat. Forgetful but, not confused. General Appearance: cooperative HEENT head/scalp atraumatic and moist oral mucous membranes HEENT Narrative: She is somewhat hard of hearing and speaks loudly. Neck Neck Narrative: Bilateral carotid bruits versus radiation of the aortic stenosis murmur Lymph Lymphatic: no lymphadenopathy noted Resp Resp Narrative: Few coarse crackles in the R base that resolve after a few deep breaths and diminished BS's in the L base. There is elevation of the L hemidiaphragm which is chronic. She has a large hiatal hernia. Effort and Inspection: Negative for tachypneic, labored or uses accessory muscles Cardio regular rate, regular rhythm and no gallops Cardio Narrative: There is a harsh systolic murmur heard best at the second right intercostal space with radiation to the left ventricular outflow tract, lower left sternal border, apex and into the left axilla. The murmur has gotten softer since admission to rehab. Echocardiogram showed critical aortic stenosis. No ectopy Rate: Negative for bradycardia or tachycardic GI normal to inspection, nondistended, normoactive bowel sounds, soft to palpation and non-tender GI Narrative: No guarding with palpation. Having regular bowel movements. Extremity no calf tenderness Extremity Narrative: No edema in the ankles. General Extremity: Negative for edema Skin Wound Narrative: There was a small area in the distal third of the incision that was bleeding but this was cauterized with a silver nitrate stick and it is no longer bleeding. There is no discharge from the wound at the time of discharge, no jena- incisional swelling, no jena-incisional erythema and no dehiscence. The skin tears have healed. Neuro CN's II-XII intact bilaterally and no focal motor deficits Coordination / Balance: [id number] test normal Psych Psych Narrative: She is very animated and talkative. She is not tearful and she interacts with staff and other patients well. She is usually smiling and is always cooperative. She is sleeping well at night and appetite is gradually improving. Eating 50-74% of the majority of meals now. Appearance: appropriate Attitude: No agitated Thought Content: No suicidality and No homicidality Weight / BMI Weight Weight: 110 lb 7.225 oz Body Mass Index (BMI) 21.7 ABG / Lab / Microbiology Data 12/24/23 05:11 12/28/23 05:02 Microbiology: Microbiology 12/18/23 13:25 Urine Catheter - Gomez Urine Culture - Final Escherichia coli Escherichia coli#2 12/12/23 14:56 Stool Stool Occult Blood ([facility]) - Final D/C Instructions Please Follow Up With: Dwayne Soni MD Meaningful Use Info Meaningful Use Meaningful Use Diagnoses (Choose all that apply): CHF CHF WALT/ARB ordered at discharge?: No Reason WALT/ARB not ordered?: Severe aortic stenosis Documented LVEF (%): 55 Ischemic Stroke Statin Dosing Therapy Reference: STATIN DOSE THERAPY REFERENCE: * Patients > 75 years receive moderate or high dose statin therapy. * Patients 75 years or YOUNGER should receive HIGH intensity statin dose unless contraindicated. You will be required to document reason for non-treatment if statin daily dose does not meet guidelines. HIGH DOSE STATIN THERAPY DAILY Atorvastatin > than or = to 40 mg Rosuvastatin > than or = to 20 mg Amlodipine + Atorvastatin > than or = to 2.5/40 mg Ezetimibe + Simvastatin 10/80 mg Simvastatin 80mg Discharge Plan Admission Admit Date/Time: 12/11/23 18:00 Primary Reason for Your Visit: Debility due to R hip fracture. Attending Provider: Courtney Pierre Primary Care Provider: THEODORE MORRELL Discharge Orders/Prescriptions Prescriptions: New bisacodyl 10 mg Suppository 10 mg WA X1 PRN (Reason: Constipation) Qty: 1 0RF furosemide 40 mg Tablet 40 mg PO Q48H Qty: 1 0RF L.acidoph,saliva-B.bif-S.therm 175 mg Capsule 1 cap PO DAILY Qty: 1 0RF Ensure Plus High Protein 0.08 gram-1.5 kcal/mL Liquid 120 ml PO TID Qty: 1 0RF lansoprazole 15 mg Capsule,Delayed Release(Dr/Ec) 15 mg PO BID Qty: 1 0RF magnesium chloride [Mag 64] 64 mg Tablet,Delayed Release (Dr/Ec) 128 mg PO DAILY Qty: 1 0RF magnesium hydroxide 400 mg/5 mL Suspension 30 ml PO X1 PRN (Reason: Constipation) Qty: 30 0RF menthol-zinc oxide [Calmoseptine] 0.44-20.6 % Ointment 1 applic topical BID Qty: 113 0RF Protocol: *Topical Application Instructions APPLICATION INSTRUCTIONS: BUTTOCKS mirtazapine 15 mg Tablet 15 mg PO 2100 Qty: 1 0RF sennosides [senna] 8.6 mg Tablet 8.6 mg PO BID Qty: 1 0RF Xarelto 10 mg Tablet 10 mg PO DINNER Qty: 7 0RF Rx Instructions: DC after the dose on 01/05/24 tramadol 50 mg Tablet 25 mg PO Q8H PRN (Reason: pain 3-10) Qty: 1 0RF spironolactone 25 mg Tablet 25 mg PO DAILY Qty: 1 0RF tamsulosin 0.4 mg Capsule 0.4 mg PO DAILY@1730 Qty: 1 0RF Rx Instructions: One daily for urine retention Changed acetaminophen 500 mg Tablet 1,000 mg PO Q8 PRN (Reason: Pain 1-10 Or Fever) Qty: 1 0RF Discontinued oxycodone 5 mg Tablet 5 mg PO Q4H PRN PRN (Reason: Pain Score 4-10) Qty: 0 0RF Xarelto 10 mg Tablet 10 mg PO DINNER Qty: 0 0RF No Action (DME) Petrolatum 33% [Eucerin Eqivalent] See Rx Instructions .Route .MEDSUPPLY Rx Instructions: Apply to the legs distal to the knees. Referrals / Follow Up: THEODORE MORRELL [Other] - 01/01/24 2:45 pm Isauro rucker-Cardiology [Other] - 04/15/24 12:45 pm (You will be see for Critical Aortic Stenosis) Babak Aggarwal DPM [Med Staff - Active Staff] - 03/21/24 10:00 am Dwayne Soni MD [Med Staff - Active Staff] - 12/31/23 2:15 pm Disposition Disposition (needs filled in before D/C Order can be placed): [facility] Facility Charges/Coding Visit Charges Inpatient E&M: 68366 Disch Hosp >30min
[2023-12-29 10:46] VITALS: BP 111/59; PULSE 82; RESP 18; TEMP 36.3; O2SAT 97
--- NOTE | 2023-12-29 11:08 | NURSING ---
Discharge to TCU at this time. Report given.
== END 2023-12-29 11:11 | disposition skilled nursing facility (03) | DRG 559 ==
PROVIDERS: Admitting Provider Internal Medicine; Visit Provider Internal Medicine
DX: S72.141D Displaced intertrochanteric fracture of right femur, subsequent encounter for closed fracture with routine healing (principal); I50.31 Acute diastolic (congestive) heart failure; D62 Acute posthemorrhagic anemia; T81.31XA Disruption of external operation (surgical) wound, not elsewhere classified, initial encounter; E88.09 Other disorders of plasma-protein metabolism, not elsewhere classified; E83.39 Other disorders of phosphorus metabolism; S81.811A Laceration without foreign body, right lower leg, initial encounter; D64.9 Anemia, unspecified; I08.0 Rheumatic disorders of both mitral and aortic valves; F32.A Depression, unspecified; T83.511A Infection and inflammatory reaction due to indwelling urethral catheter, initial encounter; E83.42 Hypomagnesemia; K21.9 Gastro-esophageal reflux disease without esophagitis; K44.9 Diaphragmatic hernia without obstruction or gangrene; W07.XXXD Fall from chair, subsequent encounter; K59.00 Constipation, unspecified; N39.0 Urinary tract infection, site not specified; R01.1 Cardiac murmur, unspecified; Z79.01 Long term (current) use of anticoagulants; R33.9 Retention of urine, unspecified; B96.20 Unspecified Escherichia coli [E. coli] as the cause of diseases classified elsewhere; M81.0 Age-related osteoporosis without current pathological fracture; G47.00 Insomnia, unspecified; X58.XXXA Exposure to other specified factors, initial encounter; R04.0 Epistaxis; Y83.1 Surgical operation with implant of artificial internal device as the cause of abnormal reaction of the patient, or of later complication, without mention of misadventure at the time of the procedure
CPT/HCPCS: 36415; 71045; 74018; 80048; 80053; 81001; 82274; 82306; 83036; 83735; 83880; 83970; 84100; 84443; 85014; 85018; 85027; 87077; 87086; 87088; 87186; 92507; 92523; 92526; 92610; 93306; 94668; 97110; 97116; 97129; 97130; 97162; 97166; 97530; 97535; 97803; A4216; J1940

== ENCOUNTER 2023-12-29 11:24 | Inpatient (IN) | payer MEDICARE, SELFPAY ==
[2023-12-29 11:58] VITALS: BMI 21.7
[2023-12-29 12:06] VITALS: BP 118/58; PULSE 85; RESP 16; TEMP 36.6; O2SAT 99; BMI 19.0
[2023-12-29] MEDS: Ensure Plus High Protein 120 ML LIQUID PO ×2 (15:22→20:45)
[2023-12-29 15:39] VITALS: PULSE 88; RESP 16; O2SAT 99
[2023-12-29] MEDS: Rivaroxaban 10 MG Tablet PO (17:25)
[2023-12-29] MEDS: Tamsulosin HCl 0.4 MG Capsule PO (17:25)
[2023-12-29] MEDS: Menthol/Lanolin/Calamine/Znox 113 GM Tube 1 APPLIC TOPICAL (20:43)
[2023-12-29] MEDS: Petrolatum 33% Tube 1 APPLIC TOPICAL (20:44)
[2023-12-29] MEDS: Mirtazapine 15 MG Tablet PO (20:45)
[2023-12-29] MEDS: Senna Tablet 2 TABLET PO (20:45)
[2023-12-29] MEDS: Lansoprazole 15 MG Capsule.DR PO (20:45)
[2023-12-30 02:23] VITALS: PULSE 94; RESP 14; O2SAT 95
[2023-12-30 04:41] VITALS: BMI 18.9
[2023-12-30 05:55] LABS: Absolute Neutrophil Count 3.9 X10^3/uL (2.0-7.7); Basophil# 0.02 X10^3/uL; Basophil% 0.4 % (0-1); Eosinophil# 0.17 X10^3/uL; Hematocrit 31.4 % (37-47); Lymphocyte % 16.1 % (19-41); Mean Corp Hgb Conc 31.8 g/dL (32-36); Mean Corpuscular Hgb 31.7 pg (27.0-32.0); Mean Corpuscular Volume 99.7 fL (81-99); Monocyte# 0.56 X10^3/uL; NRBC Flagged by Analyzer 0 % (0-5); Neutrophil # 3.92 X10^3/uL (2.7-7.7); Neutrophil % 70.1 % (47-70); Platelet Count 190 K/mm3 (150-450); RBC Distribution Width CV 15.9 % (11.6-14.6); RBC Distribution Width SD 58.1 fl (35.1-43.9); Red Blood Count 3.15 M/mm3 (4.2-5.4); White Blood Count 5.6 K/mm3 (4.4-11.0)
[2023-12-30 06:23] LABS: Anion Gap 6 (5-15); BUN 20 mg/dL (7-18); BUN/Creat Ratio 28.3 RATIO (10-20); Calcium,Total 8.7 mg/dL (8.5-10.1); Chloride 101 mmol/L (98-107); Creatinine, Serum 0.71 mg/dL (0.55-1.02); EST Glomerular Filtration Rate 83 mL/min (>60); Est Glom Filt Rate - Afr Amer 101 mL/min (>60); Estimated Creatinine Clearance 39.42 ml/min; Glucose 108 mg/dL (74-106); Potassium 4.1 mmol/L (3.5-5.1); Sodium Level 135 mmol/L (136-145)
[2023-12-30 07:00] VITALS: BMI 19.1
[2023-12-30 08:00] VITALS: O2SAT 96
[2023-12-30 10:10] VITALS: BP 111/56; PULSE 86; RESP 16; TEMP 37; O2SAT 99
[2023-12-30] MEDS: Senna Tablet 2 TABLET PO ×2 (10:17→21:02)
[2023-12-30] MEDS: Magnesium Chloride 64 MG Delay Rel.Tablet 128 MG PO (10:17)
[2023-12-30] MEDS: Spironolactone 25 MG Tablet PO (10:17)
[2023-12-30] MEDS: Lansoprazole 15 MG Capsule.DR PO ×2 (10:17→21:02)
[2023-12-30] MEDS: Menthol/Lanolin/Calamine/Znox 113 GM Tube 1 APPLIC TOPICAL ×2 (10:17→21:01)
[2023-12-30] MEDS: Lactobacillis Acidophilus 1 CAP PO (10:17)
[2023-12-30] MEDS: Petrolatum 33% Tube 1 APPLIC TOPICAL ×2 (10:18→21:01)
[2023-12-30] MEDS: Ensure Plus High Protein 120 ML LIQUID PO ×3 (10:22→16:35)
[2023-12-30] MEDS: 0.9% Saline Lock 10 ML Syringe IV (10:28)
[2023-12-30] MEDS: Tuberculin,Purif.prot.deriv. 50 TU/ML Vial 0.1 ML ID (10:30)
--- NOTE | 2023-12-30 12:32 | PCM.HP.STD ---
HPI - General General Date of Admission: 12/29/23 Date of Service: 12/30/23 Chief Complaint: Debility due to R hip FX/ORIF HPI Narrative YEIMY PANIAGUA, is a 88 YO F who was admitted to the acute inpatient rehab unit at [facility] on 12/11/2023 for 3 hours of therapy daily to restore function/independence at or near her level prior to a ground-level fall resulting in a right hip fracture. She had surgery performed by Dr. Soni on 12/08/2023 and had a cephalomedullary nail placed in the right hip. At the time she arrived on rehab she had gained 26 pounds since admission to the hospital. She had 4+ pitting edema of her lower extremities. She had a harsh systolic murmur at the second right intercostal space with radiation to the left ventricular outflow tract, lower left sternal border, apex and into the left axilla. The lungs were clear to auscultation but breath sounds in the left base were diminished secondary to an elevated left hemidiaphragm and large hiatal hernia. She was started on intravenous Lasix and diuresed. She was also started on Cozaar and Aldactone however the blood pressure did not tolerate Cozaar and it was discontinued. A transthoracic echocardiogram was obtained and showed critical aortic stenosis and mitral insufficiency. Yeimy had urine retention and a Gomez catheter was placed. A KUB showed a large amount of fecal retention and she was treated with laxatives and stool softeners. After several bowel movements we were able to discontinue the Gomez catheter however she continued to retain urine between 200-250 cc's. She was started on Flomax and it has helped. She was quite depressed at presentation to acute rehab due to her 's passing in October from rectal cancer. She had lost considerable amount of weight and was very dehydrated at admission. She had a very poor appetite and was not sleeping well. She was started on Remeron 7.5 mg without any adverse reactions. This was increased after 1 week to 15 mg p.o. nightly. At the time of discharge from rehab she is sleeping much better and her appetite has significantly improved. Prior to discharge she is taking 50 to 100% of her meals consistently. Yeimy did well in therapy and made good progress but, prior to the fracture she was living alone and independent with all ADL's. PT/OT felt she needed additional inpt PT/OT at DC from Acute rehab and she was transferred to the transitional care unit at [facility] on 12/29/2023 for additional strengthening/rehabilitation prior to planned discharge home with her family. Prior to DC from rehab appts were made for her to follow up with Dr. Soni, PCP and with cardiology at [facility] to be evaluated for critical found on TTE. At the time of DC her lungs were CTA and she had no ankle edema. Her weight had decreased from 132 to 111 while on DC and weight is now stable. Denied lightheadedness. [facility] Medical History (Updated 12/30/23 @ 12:[address] Courtney Pierre, DO) Closed intertrochanteric fracture of femur Contusion of knee Fall Critical aortic valve stenosis Mitral valve insufficiency Hiatal hernia GERD (gastroesophageal reflux disease) Non-smoker Irregular heart beat Home Medications ?Medication ?Instructions ?Recorded ?Last Taken ?Type L.acidophil,salivari-Bifido 1 cap PO DAILY Supplement #1 cap 12/29/23 Unknown Rx bifidum-Strep thermoph 175 mg capsule Petrolatum 33% [Eucerin Eqivalent] 12/29/23 Unknown History acetaminophen 500 mg tablet 1,000 mg (2 x 500 mg) PO Q8 PRN 12/29/23 12/29/23 05:25 Rx Pain 1-10 Or Fever #1 TAB bisacodyl 10 mg rectal suppository 10 mg NE X1 PRN Constipation #1 ea 12/29/23 Unknown Rx food supplemt, lactose-reduced 120 ml PO TID Supplement #1 mL 12/29/23 12/29/23 05:25 Rx 0.08 gram-1.5 kcal/mL oral liquid (Ensure Plus High Protein) furosemide 40 mg tablet 40 mg PO Q48H Diuretic #1 TAB 12/29/23 Unknown Rx lansoprazole 15 mg capsule,delayed 15 mg PO BID GERD #1 cap 12/29/23 Unknown Rx release magnesium chloride 64 mg 128 mg (2 x 64 mg) PO DAILY 12/29/23 Unknown Rx (magnesium chloride) Supplement #1 TAB tablet,delayed release (Mag 64) magnesium hydroxide 400 mg/5 mL 30 ml PO X1 PRN Constipation #30 mL 12/29/23 Unknown Rx oral suspension menthol 0.44 %-zinc oxide 20.6 % 1 applic topical BID Redness to 12/29/23 Unknown Rx topical ointment (Calmoseptine) buttocks #113 grams mirtazapine 15 mg tablet 15 mg PO 2100 Appetite stimulant 12/29/23 Unknown Rx #1 TAB rivaroxaban 10 mg tablet (Xarelto) 10 mg PO DINNER Anticoagulant #7 12/29/23 Unknown Rx tabs sennosides 8.6 mg tablet (senna) 8.6 mg PO BID Constipation #1 TAB 12/29/23 Unknown Rx spironolactone 25 mg tablet 25 mg PO DAILY Blood pressure #1 12/29/23 Unknown Rx TAB tamsulosin 0.4 mg capsule 0.4 mg PO DAILY@1730 Urine 12/29/23 Unknown Rx retention #1 cap tramadol 50 mg tablet 25 mg (1/2 x 50 mg) PO Q8H PRN 12/29/23 Unknown Rx pain 3-10 #1 TAB Allergy/AdvReac Type Severity Reaction Status Date / Time No Known Allergies Allergy Verified 12/07/23 14:01 Family History Daughter , brain tumor Cancer Mother Diabetes Surgical History Hx of cholecystectomy Social History household members: none housing: house number of children: 3 Smoking Status: Never smoker alcohol intake: never substance use type: does not use ROS Constitutional Constitutional: Reports change in weight; Denies chills, fatigue, fever(s) or night sweats Eyes Eyes: Denies blurry vision, change in vision, eye pain or loss of vision ENT HEENT: Denies abnormal hearing, dysphagia, headache(s), hearing loss, nasal congestion or sore throat Cardiovascular Cardiovascular: Reports edema; Denies chest pain, dyspnea on exertion, lightheadedness, orthopnea, palpitations, paroxysmal nocturnal dyspnea or syncope Respiratory/Chest Respiratory/Chest: Denies cough, dyspnea, shortness of breath at rest, shortness of breath with exertion or wheezing Gastrointestinal Gastrointestinal: Denies abdominal pain, constipation, diarrhea, dyspepsia, hematemesis, hematochezia, nausea or vomiting Genitourinary Genitourinary: Reports other Details: urine retention ; Denies dysuria, hematuria, nocturia, urinary frequency, urinary hesitancy or urinary urgency Musculoskeletal Musculoskeletal: Denies back pain, joint pain, joint swelling or neck pain Neurologic Neurologic: Denies confusion, disequilibrium, dizziness, focal weakness, headache(s), paresthesias, seizures or tremor(s) Psychiatric Psychiatric: Denies anxiety, suicidal ideation or visual hallucinations Endocrine Endocrinology: Reports change in body appearance; Denies polydipsia or polyuria Hematologic/Lymphatic Hematologic/Lymphatic: Denies easy bleeding, easy bruising or lymphadenopathy Allergic/Immunologic Allergic/Immunologic: Denies rhinitis, eczemia or asthma Vital Signs Vital Signs Vital Signs: 12/29/23 12:33 12/29/23 15:39 12/29/23 22:00 Temperature Temperature Source Pulse Rate 88 Pulse Rhythm Regular Pulse Strength Normal (2+) Normal (2+) Normal (2+) Respiratory Rate 16 Respiratory Effort Normal Non-Labored Respiratory Depth Normal Respiratory Pattern Normal Blood Pressure Blood Pressure Mean Blood Pressure Source Blood Pressure Position Blood Pressure Location Pulse Ox 99 Oxygen Delivery Method Room Air 12/30/23 02:23 12/30/23 08:00 12/30/23 10:10 Temperature 98.6 F Temperature Source Temporal Pulse Rate 94 86 Pulse Rhythm Regular Pulse Strength Normal (2+) Respiratory Rate 14 16 Respiratory Effort Normal Non-Labored Respiratory Depth Normal Respiratory Pattern Normal Blood Pressure 111/56 L Blood Pressure Mean 74 Blood Pressure Source Monitor Blood Pressure Position Sitting Blood Pressure Location Right Arm Pulse Ox 95 96 99 Oxygen Delivery Method Room Air Room Air Room Air 12/30/23 10:28 Temperature Temperature Source Pulse Rate Pulse Rhythm Pulse Strength Normal (2+) Respiratory Rate Respiratory Effort Respiratory Depth Respiratory Pattern Blood Pressure Blood Pressure Mean Blood Pressure Source Blood Pressure Position Blood Pressure Location Pulse Ox Oxygen Delivery Method Weight Weight: 111 lb 12.39 oz Body Mass Index (BMI) 19.1 Physical Exam Const alert, oriented x3 and no apparent distress Constitutional Narrative: Pleasant, talkative and seems to enjoy interacting with staff and other patients. She is no longer tearful and her appetite and insomnia have both improved. General Appearance: cooperative and well kempt HEENT head/scalp atraumatic HEENT Narrative: Mucous membranes are a little dry. No evidence of thrush. Eyes EOMs intact bilaterally, conjunctivae normal and no scleral icterus Eyes Narrative: No discharge from the eyes and no mattering of the eyelashes. Neck Neck Narrative: She either has bilateral carotid bruits or radiation of the aortic stenosis murmur into both carotids. The bruit gets softer as you a send the neck so I suspect that the bruit is actually due to radiation of the aortic stenosis murmur. General: trachea midline Chest inspection of chest normal Chest: symmetrical chest wall rise Resp normal respiratory effort, normal air movement, no use of accessory muscles and clear to auscultation bilaterally Resp Narrative: Breath sounds in the left base are chronically diminished secondary to an elevated left hemidiaphragm and a large hiatal hernia. She has no conversational dyspnea. She is not tachypneic. Effort and Inspection: able to speak in complete sentences Cardio regular rate, regular rhythm, no rub and no gallops Cardio Narrative: She has a harsh systolic murmur heard best at the second right intercostal space with radiation to the lower left sternal border, left ventricular outflow tract, apex and into the left axilla. No ectopy. She denies palpitations and lightheadedness. GI normal to inspection, nondistended, normoactive bowel sounds, soft to palpation and non-tender GI Narrative: No guarding with palpation Extremity no calf tenderness and no pedal edema Skin General Skin Exam: no breakdown Rashes: no rashes Wound Narrative: Incisions in the right lateral thigh are intact. Balsam have been removed. There is no discharge from any of the incisions and there is no jena-incisional erythema or swelling. Neuro CN's II-XII intact bilaterally and moves all extremities Psych cooperative, speech normal and denies suicidal ideation Psych Narrative: She has some difficulty with short-term memory but it is mild and for her age I feel her thought processes are normal. She is not tearful and she is most often smiling. She interacts very well with staff and the other patients and is always pleasant. Appearance: grossly normal, appropriate and well kempt Attitude: calm and engaged Results Lab / Micro Data 12/30/23 05:45 12/30/23 05:45 Labs: Laboratory Results - last 24 hr 12/30/23 05:45: WBC 5.6, RBC 3.15 L, Hgb 10.0 L, Hct 31.4 L, MCV 99.7 H, MCH 31.7, MCHC 31.8 L, RDW Std Deviation 58.1 H, RDW Coeff of Junior 15.9 H, Plt Count 190, MPV 9.0, Immature Gran % (Auto) 0.400, Neut % (Auto) 70.1 H, Lymph % (Auto) 16.1 L, [place] % (Auto) 10.0, Eos % (Auto) 3.0, Baso % (Auto) 0.4, Absolute Neuts (auto) 3.9, Absolute Lymphs (auto) 0.90, Nucleated RBC % 0, Sodium 135 L, Potassium 4.1, Chloride 101, Carbon Dioxide 28.0, Anion Gap 6, BUN 20 H, Creatinine 0.71, Estim Creat Clear Calc 39.42, Est GFR (MDRD) Af Amer 101, Est GFR (MDRD) Non-Af 83, BUN/Creatinine Ratio 28.3 H, Glucose 108 H, Calcium 8.7 Assessment & Plan Assessment/Plan (1) Debility: (2) Closed intertrochanteric fracture of femur: QUALIFIERS: Encounter type: subsequent encounter Fracture alignment: displaced Laterality: right Fracture healing: with routine healing Qualified Code(s): S72.141D - Displaced intertrochanteric fracture of right femur, subsequent encounter for closed fracture with routine healing (3) Status post open reduction and internal fixation (ORIF) of fracture: (4) Acute blood loss anemia: (5) Depression: QUALIFIERS: Depression Type: unspecified Qualified Code(s): F32.A - Depression, unspecified (6) Acute diastolic (congestive) heart failure: (7) Critical aortic valve stenosis: (8) Mitral valve insufficiency: QUALIFIERS: Cardiac valve disease etiology: nonrheumatic Qualified Code(s): I34.0 - Nonrheumatic mitral (valve) insufficiency (9) Urinary retention: (10) Hiatal hernia: (11) GERD (gastroesophageal reflux disease): QUALIFIERS: Esophagitis presence: esophagitis presence not specified Qualified Code(s): K21.9 - Gastro-esophageal reflux disease without esophagitis PLAN: Plan PLAN PT for gait stability OT for ADL's ST for evaluation Analgesics as needed Bowel protocol Fall precautions Assess for Anxiety/Depression GI prophylaxis -lansoprazole DVT prophylaxis with Xarelto 10 mg daily for a total of 28 days post right hip intramedullary nailing. Follow up with PCP, Dr. Soni, Dr. Aggarwal for podiatric care and [facility] cardiology for aortic stenosis following DC from IP Rehab AM lab including BMP and CBC-personally reviewed Check 3 postvoid residuals Charges/Coding Visit Charges Inpatient E&M: 19339 SNF Subs L1
[2023-12-30] MEDS: Furosemide 40 MG Tablet PO (12:50)
[2023-12-30] MEDS: Tamsulosin HCl 0.4 MG Capsule PO (16:35)
[2023-12-30] MEDS: Rivaroxaban 10 MG Tablet PO (16:35)
[2023-12-30] MEDS: Mirtazapine 15 MG Tablet PO (21:02)
[2023-12-31 05:46] VITALS: BMI 18.6
[2023-12-31 07:24] VITALS: O2SAT 97
[2023-12-31] MEDS: Spironolactone 25 MG Tablet PO (09:14)
[2023-12-31] MEDS: Magnesium Chloride 64 MG Delay Rel.Tablet 128 MG PO (09:14)
[2023-12-31] MEDS: Lansoprazole 15 MG Capsule.DR PO ×2 (09:14→19:47)
[2023-12-31] MEDS: Lactobacillis Acidophilus 1 CAP PO (09:14)
[2023-12-31] MEDS: Menthol/Lanolin/Calamine/Znox 113 GM Tube 1 APPLIC TOPICAL ×2 (09:15→19:47)
[2023-12-31] MEDS: Petrolatum 33% Tube 1 APPLIC TOPICAL ×2 (09:15→19:48)
[2023-12-31] MEDS: Senna Tablet 2 TABLET PO ×2 (09:16→19:47)
[2023-12-31] MEDS: Ensure Plus High Protein 120 ML LIQUID PO ×3 (09:16→17:09)
--- NOTE | 2023-12-31 09:21 | NURSING ---
Addendum entered by Kandi Mejía 12/31/23 10:46: Call back from Padmini at Dr. Soni's w/ orders to complete hip and femur xrays. Orders placed. Original Note: Asked pt about f/u with Dr. Soni today, she said to call her son Prakash about transport. Spoke with Prakash, he expressed concern with trying to get his mother into his vehicle. Offered to have appt moved, he agreed. Appt moved to 01/10/24 @1330. Updated Prakash. Offered to have therapy practice car transfer with him before appt. He said he'd appreciate that and thinks it'd help him and patient feel more comfortable. Let him know RN would update therapy and they would reach out. Omar PT notified. Left VM with clinical staff at MD office, requested return call if Dr. Soni had any orders for TCU staff before appt.
[2023-12-31 09:52] VITALS: BP 106/64; PULSE 90; RESP 16; TEMP 36.5; O2SAT 100
--- NOTE | 2023-12-31 10:42 | RAD_ITS ---
EXAM: XR PELVIS, 1 OR 2 VIEWS CLINICAL INDICATION: post surgical TECHNIQUE: Frontal view of the pelvis. COMPARISON: Right femur on the same date. FINDINGS: BONES/JOINTS: Intramedullary fixation of right femoral fracture is identified. No destructive or sclerotic lesions. Note that overlapping bowel shadows may however obscure fine detail. Bilateral SI joint arthrosis and degenerative changes in the lumbar spine. No widening of the pubic symphysis. The articular structures are unremarkable. SOFT TISSUES: No significant abnormality. No soft tissue swelling or gas. RAD/Pelvis 1 or 2 Views IMPRESSION: Intramedullary fixation of right femoral fracture is identified. Degenerative changes. No evidence of additional fracture. Electronically Signed: Roberto Bustos DO at 18:27 EDT ,
--- NOTE | 2023-12-31 10:43 | RAD_ITS ---
STUDY: X-RAY - RIGHT FEMUR REASON FOR STUDY: Female, 88 years old. Post surgical TECHNIQUE: 3 view(s) of the femur. COMPARISON: Comparison is made with prior study dated December 07, 2023. FINDINGS: The patient is status post open reduction and internal fixation of the proximal femoral fracture with a compression screw and intramedullary radha fixation device. There is good alignment. Normal visualized soft tissue structure. RAD/Femur Min 2 Views IMPRESSION: Status post ORIF of the proximal metaphysis of the right femur. There is good alignment. Electronically Signed: Errol Castro MD at 15:29 EDT ,
--- NOTE | 2023-12-31 12:07 | NURSING ---
Seismograph Observer Note; Activity Asset: Angélica Jordan is independent in her choice of daily activities. She will watch tv, read and visit w/family and orthodoxy. She welcomes visits w/entry processor however not a fan of animals and prefers not to see the therapy dog. At this time she prefers in room activities over group. Staff will encourage social activities, remind her of weekly activities and respect her right to say no.
--- NOTE | 2023-12-31 13:54 | PCM.PN.DRR ---
TCU RX Drug Regimen Review Subjective/Objective Subjective/Objective: Subjective: TCU Admission. 88 YOF presented to the ER after a fall. Underwent right hip ORIF cephalic medullary nail 12/08/[address] Soni. Discharged to inpatient RU. Now admitted to TCU with debility for strengthening and rehabilitation. Objective: Allergies No Known Allergies Allergy (Verified 12/07/23 14:01) Current Medications Generic Name Dose Route Start Last Admin Trade Name Freq PRN Reason Stop Dose Admin Acetaminophen 1,000 mg 12/29/23 11:50 Acetaminophen 500 Mg Tablet PO Q8 PRN Pain 1-10 Or Fever Bisacodyl 10 mg 12/29/23 16:26 Bisacodyl 10 Mg Suppository RC DAILY PRN PRN Constipation Calamine/Phenol 1 applic 12/29/23 22:00 12/31/23 09:15 Menthol/Lanolin/Calamine/Znox 113 Gm Tube TOPICAL 1 applic BID MYLENE Administration Protocol Furosemide 40 mg 12/30/23 12:00 12/30/23 12:50 Furosemide 40 Mg Tablet PO 40 mg Q48H MYLENE Administration Protocol Sodium Chloride 250 mls @ 15 mls/hr 12/29/23 12:08 IV .[id number] PRN Additional IVPB Infusion Sodium Chloride 250 mls @ 15 mls/hr 12/29/23 12:08 IV .[id number] PRN Saline Flush Lansoprazole 15 mg 12/29/23 22:00 12/31/23 09:14 Lansoprazole 15 Mg Capsule.Dr PO 15 mg BID MYLENE Administration Magnesium Chloride 128 mg 12/30/23 10:00 12/31/23 09:14 Magnesium Chloride 64 Mg Delay Rel.Tablet PO 128 mg DAILY MYLENE Administration Magnesium Hydroxide 30 ml 12/29/23 11:50 Magnesium Hydroxide 30 Ml Udc PO X1 PRN Constipation Mirtazapine 15 mg 12/29/23 21:00 12/30/23 21:02 Mirtazapine 15 Mg Tablet PO 15 mg 2100 MYLENE Administration Multi-Ingredient Cream 1 applic 12/29/23 22:00 12/31/23 09:15 Petrolatum 33% Tube TOPICAL 1 applic BID MYLENE Administration Nutritional Formula (Lactose Free) 120 ml 12/30/23 07:45 12/31/23 12:12 Ensure Plus High Protein 120 Ml Liquid PO 120 ml TIDCM MYLENE Administration Rivaroxaban 10 mg 12/29/23 17:00 12/30/23 16:35 Rivaroxaban 10 Mg Tablet PO 01/05/24 23:59 10 mg DINNER MYLENE Administration Senna 2 tablet 12/29/23 22:00 12/31/23 09:16 Senna Tablet PO 2 tablet BID MYLENE Administration Sodium Chloride 10 - 40 ml 12/29/23 12:08 12/30/23 10:28 0.9% Saline Lock 10 Ml Syringe IV 10 ml UD PRN Administration SALINE FLUSH Spironolactone 25 mg 12/30/23 10:00 12/31/23 09:14 Spironolactone 25 Mg Tablet PO 25 mg DAILY MYLENE Administration Protocol Tamsulosin HCl 0.4 mg 12/29/23 17:30 12/30/23 16:35 Tamsulosin Hcl 0.4 Mg Capsule PO 0.4 mg DAILY@1730 MYLENE Administration Tramadol HCl 25 mg 12/29/23 11:55 Tramadol 50 Mg Tablet PO Q8H PRN pain 3-10 Tuberculin PPD 0.1 ml 01/06/24 10:00 Tuberculin,Purif.Prot.Deriv. 50 Tu/Ml Vial ID 01/06/24 10:01 X1 ONE Problem List Closed intertrochanteric fracture of femur (Acute) Acute blood loss anemia (Acute) Depression (Acute) Mitral valve insufficiency (Acute) Critical aortic valve stenosis (Chronic) Urinary retention (Chronic) Hiatal hernia (Chronic) Status post open reduction and internal fixation (ORIF) of fracture (Acute) Debility (Acute) GERD (gastroesophageal reflux disease) (Chronic) Vital Signs Temp Pulse Resp BP Pulse Ox O2 Del Method 97.7 F L 90 16 106/64 100 Room Air 12/31/23 09:52 12/31/23 09:52 12/31/23 09:52 12/31/23 09:52 12/31/23 09:52 12/31/23 10:00 Oxygen Delivery Method Room Air Weight: 49.6 kg Body Mass Index (BMI) 18.6 Sodium 135 mmol/L (136-145) L 12/30/23 05:45 Potassium 4.1 mmol/L (3.5-5.1) 12/30/23 05:45 Chloride 101 mmol/L (98-107) 12/30/23 05:45 Carbon Dioxide 28.0 mmol/L (21.0-32.0) 12/30/23 05:45 Anion Gap 6 (5-15) 12/30/23 05:45 BUN 20 mg/dL (7-18) H 12/30/23 05:45 Creatinine 0.71 mg/dL (0.55-1.02) 12/30/23 05:45 Est GFR (MDRD) Af Amer 101 mL/min (>60) 12/30/23 05:45 Est GFR (MDRD) Non-Af 83 mL/min (>60) 12/30/23 05:45 BUN/Creatinine Ratio 28.3 RATIO (10-20) H 12/30/23 05:45 Glucose 108 mg/dL (74-106) H 12/30/23 05:45 Assessment/Plan: 1. Pain: acetaminophen 1000mg PO Q8H PRN for pain scores 1-10 or fever and tramadol 25mg Q8H PO PRN for pain scores 3-10. Please continue to monitor for increasing/decreasing pain, increasing/decreasing PRN medication use (PRN acetaminophen and tramadol have not yet been given), falls and oversedation (BEERS), liver function (last liver enzymes WNL on 12/12/2023), constipation (last BM 12/31/23), kidney function (last CrCL 39ml/min on 12/30/23). 2.Bowel: senna 17.2mg PO BID, Milk of magnesia 30ml PO PRN constipation and bisacodyl 10mg RC PRN constipation. Please continue to monitor for increasing/decreasing constipation/diarrhea (last BM 12/31/23), increasing/decreasing PRN medication use (PRN milk of magnesia and bisacodyl have not yet been given). 3. DVT prophylaxis: Xarelto 10mg PO daily with dinner thru 01/05/24. Please continue to monitor for bleeding/bruising, hemoglobin (last 10g/dL), bloody stool/urine, dark stool, renal function (last CrCL 39ml/min on 12/30/23), liver function (last liver enzymes WNL on 12/12/2023) 4. Urinary Retention/Edema: furosemide 40mg PO Q48H, tamsulosin 0.4mg PO daily, spironolactone 25mg PO daily. Please continue to monitor for increasing/decreasing urine output, serum sodium (last 135mmol/l on 12/30/2023), serum potassium (last 4.1mmol/L on 12/30/2023), blood pressure (last 106/64 on 12/31/2023), kidney function (last CrCL 39ml/min on 12/30/23) 5. Hypomagnesemia: magnesium chloride 128mg PO daily. Please continue to monitor serum magnesium (last 2.1mmol/L on 12/28/2023) 6. GI prophylaxis: lansoprazole 15mg PO BID, Lactobacillus 1 capsule PO daily. Please continue to monitor for increasing/decreasing constipation/diarrhea (BEERs, last BM 12/31/23), liver function (last liver enzymes WNL on 12/12/2023), serum magnesium (last 2.1mmol/L on 12/28/2023, BEERS), and for bloody/dark stools. 7. Skin irritation: Calmoseptine applied to buttocks BID, Eucerin applied to legs BID. Please continue to monitor for increasing/decreasing skin irritation/infection and sores. Assessment/Plan for indications treated with psychotropic medications: 1. Depression: mirtazapine 15mg PO daily with dinner. Please continue to monitor for increasing/decreasing anxiety/depression, suicidality ([place]), falls/oversedation, Renal function (last CrCL 39ml/min on 12/30/23), sodium (last 135mmol/L on 12/30/2023, BEERS). GDR not appropriate at this time as this medication was just started and dose was recently increased. Medical chart and medication regimen reviewed. The following medication irregularities or issues were identified: None Date Date of Note:: 12/31/23
[2023-12-31] MEDS: Tamsulosin HCl 0.4 MG Capsule PO (17:09)
[2023-12-31] MEDS: Rivaroxaban 10 MG Tablet PO (17:09)
[2023-12-31] MEDS: Mirtazapine 15 MG Tablet PO (19:47)
[2024-01-01 04:00] VITALS: BMI 18.5
[2024-01-01 06:00] VITALS: BMI 18.5
[2024-01-01 08:35] VITALS: O2SAT 95
[2024-01-01] MEDS: Ensure Plus High Protein 120 ML LIQUID PO (09:20)
[2024-01-01] MEDS: Magnesium Chloride 64 MG Delay Rel.Tablet 128 MG PO (09:21)
[2024-01-01] MEDS: Lactobacillis Acidophilus 1 CAP PO (09:21)
[2024-01-01] MEDS: Lansoprazole 15 MG Capsule.DR PO ×2 (09:21→21:26)
[2024-01-01] MEDS: Menthol/Lanolin/Calamine/Znox 113 GM Tube 1 APPLIC TOPICAL ×2 (09:21→21:27)
[2024-01-01] MEDS: Senna Tablet 2 TABLET PO ×2 (09:22→21:26)
[2024-01-01] MEDS: Acetaminophen 500 MG Tablet 1000 MG PO ×2 (09:27→21:25)
[2024-01-01] MEDS: Petrolatum 33% Tube 1 APPLIC TOPICAL ×2 (09:30→21:27)
[2024-01-01] MEDS: Spironolactone 25 MG Tablet PO (10:34)
[2024-01-01 10:38] VITALS: BP 100/61; PULSE 87
[2024-01-01] MEDS: Furosemide 40 MG Tablet PO (12:40)
[2024-01-01] MEDS: COVID VAC 23-24(12UP)(ANDU)/PF 50 MCG/0.5 ML SYR/VIAL IM (12:40)
[2024-01-01 12:48] VITALS: BP 105/56; PULSE 86
[2024-01-01 13:35] VITALS: PULSE 87; RESP 16; TEMP 36.8; O2SAT 96
[2024-01-01] MEDS: Rivaroxaban 10 MG Tablet PO (17:57)
[2024-01-01] MEDS: Mirtazapine 15 MG Tablet PO (21:27)
[2024-01-02 06:00] VITALS: BMI 17.9
--- NOTE | 2024-01-02 09:24 | CASEMGMT ---
Addendum entered by Piper Live 01/02/24 10:16: [facility] does not have AL. SW phoned son to update and offered to send this worker additional facilities for referrals. Son appreciative. Addendum entered by Piper Live 01/02/24 09:51: Family also stated pt does not have advanced directives. SW offered to complete with pt while admitted. Pt agreed and would like to name both sons. SW to complete as time allows. Original Note: Social Work IDT met with patient, samy Park, and Cristina ALCANTARA, for care plan meeting. Discussed patient's progress in PT/OT/ST/SN. Educated to Medicare benefit. Pt does not have secondary insurance. Day 21, the start of copays, is 01/17. Goal is to DC prior to that date. Family and pt stated DC goal is to go to AL and provided to facilities - [facility] in [place] and [facility] in [place]. SW educated to this worker placing referral and that facility will assess to determine AL appropriateness or possible LTC. Family expressed understanding. SW sent referrals via [facility]. Will continue to follow. ALANNA MullerW
[2024-01-02] MEDS: Ensure Plus High Protein 120 ML LIQUID PO ×3 (09:50→17:43)
[2024-01-02] MEDS: Magnesium Chloride 64 MG Delay Rel.Tablet 128 MG PO (09:50)
[2024-01-02] MEDS: Spironolactone 25 MG Tablet PO (09:50)
[2024-01-02] MEDS: Lansoprazole 15 MG Capsule.DR PO ×2 (09:50→20:13)
[2024-01-02] MEDS: Petrolatum 33% Tube 1 APPLIC TOPICAL ×2 (09:50→20:13)
[2024-01-02] MEDS: Senna Tablet 2 TABLET PO (09:50)
[2024-01-02] MEDS: Lactobacillis Acidophilus 1 CAP PO (09:50)
[2024-01-02] MEDS: Menthol/Lanolin/Calamine/Znox 113 GM Tube 1 APPLIC TOPICAL ×2 (09:51→20:13)
[2024-01-02 16:00] VITALS: BP 103/58; PULSE 85; RESP 16; TEMP 37.2; O2SAT 97
[2024-01-02] MEDS: Rivaroxaban 10 MG Tablet PO (17:43)
[2024-01-02] MEDS: Mirtazapine 15 MG Tablet PO (20:13)
[2024-01-02] MEDS: traMADol 50 MG Tablet 25 MG PO (20:18)
[2024-01-03 06:00] VITALS: BMI 18.2
[2024-01-03 09:01] VITALS: BP 115/67; PULSE 85; RESP 16; TEMP 36.9; O2SAT 100
[2024-01-03] MEDS: Spironolactone 25 MG Tablet PO (09:06)
[2024-01-03] MEDS: Menthol/Lanolin/Calamine/Znox 113 GM Tube 1 APPLIC TOPICAL ×2 (09:06→20:43)
[2024-01-03] MEDS: Lactobacillis Acidophilus 1 CAP PO (09:06)
[2024-01-03] MEDS: Ensure Plus High Protein 120 ML LIQUID PO ×3 (09:06→17:13)
[2024-01-03] MEDS: Petrolatum 33% Tube 1 APPLIC TOPICAL ×2 (09:07→20:42)
[2024-01-03] MEDS: Lansoprazole 15 MG Capsule.DR PO ×2 (09:07→20:44)
[2024-01-03] MEDS: Magnesium Chloride 64 MG Delay Rel.Tablet 128 MG PO (09:07)
[2024-01-03] MEDS: Furosemide 40 MG Tablet PO (11:02)
--- NOTE | 2024-01-03 11:37 | MDS.RN ---
Pain interview for mds completed.
--- NOTE | 2024-01-03 11:43 | CASEMGMT ---
Social Work SW completed advanced directives with pt, naming both sons equal HCPOA. Original and copies provided to pt. Copies placed on chart. Piper Live, CANTILEVER CRANE OPERATOR LEAD NITRATE PROCESSOR
--- NOTE | 2024-01-03 17:00 | NURSING ---
Updated Dr. Zhang. Patient c/o right knee pain with therapy today. New order for xray of right knee.
[2024-01-03] MEDS: Rivaroxaban 10 MG Tablet PO (17:13)
--- NOTE | 2024-01-03 17:28 | RAD_ITS ---
EXAM: XR RIGHT KNEE, 3 VIEWS CLINICAL INDICATION: Pain with therapy. TECHNIQUE: Three views of the right knee. COMPARISON: No relevant prior studies available. FINDINGS: BONES/JOINTS: There is an intramedullary radha in the distal femur. No acute fracture. No subluxation. Normal alignment. Preservation of the joint space. No sclerotic or destructive changes observed. SOFT TISSUES: Unremarkable. No soft tissue swelling or gas. No radiopaque foreign body. RAD/Knee 3 Views IMPRESSION: No acute findings in the right knee. Electronically Signed: Ramon Arthur MD at 23:20 EDT ,
[2024-01-03] MEDS: Mirtazapine 15 MG Tablet PO (20:43)
[2024-01-03] MEDS: Senna Tablet 2 TABLET PO (20:43)
[2024-01-04 06:00] VITALS: BMI 17.9
[2024-01-04 09:03] VITALS: BP 120/71; PULSE 85; RESP 16; TEMP 36.3; O2SAT 100
[2024-01-04] MEDS: Spironolactone 25 MG Tablet PO (09:04)
[2024-01-04] MEDS: Lansoprazole 15 MG Capsule.DR PO ×2 (09:04→20:34)
[2024-01-04] MEDS: Ensure Plus High Protein 120 ML LIQUID PO ×3 (09:04→17:34)
[2024-01-04] MEDS: Senna Tablet 2 TABLET PO ×2 (09:04→20:34)
[2024-01-04] MEDS: Petrolatum 33% Tube 1 APPLIC TOPICAL ×2 (09:04→20:35)
[2024-01-04] MEDS: Magnesium Chloride 64 MG Delay Rel.Tablet 128 MG PO (09:04)
[2024-01-04] MEDS: Lactobacillis Acidophilus 1 CAP PO (09:04)
[2024-01-04] MEDS: Menthol/Lanolin/Calamine/Znox 113 GM Tube 1 APPLIC TOPICAL ×2 (09:05→20:34)
--- NOTE | 2024-01-04 14:45 | CHAPLAIN ---
Type of Pastoral Visit ___ Initial Visit _x__ Follow-up Visit ___ On-call Visit ___ General Patient Visit ___ Spiritual Assessment ___ Family Conference ___ Bereavement ___ Rapid Response ___ Code Blue ___ Other (describe below) Pastoral Care Referral From _x__ Patient ___ Family ___ Nurse ___ Physician ___ Parking Lot Attendant ___ Hired Hand ___ Other (describe below) Sacrament/Intervention _x__ Active listening ___ Anointing ___ Yarsani ___ Bereavement ___ Communion ___ Sarah exploration ___ _x__ Life review _x__ Prayer ___ Reconciliation ___ Sacrament of Sick _x__ Supportive presence ___ Wedding ___ Other (describe below) Pastoral Comments patient has been seen previously in [facility]; pt repeats some of her stories and states again her purpose in living which is to be independent for my own needs and to help my family; pt speaks of her and of her heritage in her family of origin; prayer is welcomed as requested by the pt; pt states at end of visit you really made my day today
--- NOTE | 2024-01-04 14:46 | CASEMGMT ---
Social Work SW followed up via [facility] and phone call to [facility]. Admissions requested referral be sent via [facility] to their SNF, [facility], to view the referral. SW resent referral as SNF per request. Will await outcome. Piper Live, PASSEMENTERIE WORKER NEWS CLERK
[2024-01-04 16:21] VITALS: RESP 16
[2024-01-04] MEDS: Rivaroxaban 10 MG Tablet PO (17:33)
[2024-01-04] MEDS: traMADol 50 MG Tablet 25 MG PO (20:33)
[2024-01-04] MEDS: Mirtazapine 15 MG Tablet PO (20:34)
[2024-01-05 06:00] VITALS: BMI 17.6
[2024-01-05] MEDS: Ensure Plus High Protein 120 ML LIQUID PO (09:06)
[2024-01-05] MEDS: Lansoprazole 15 MG Capsule.DR PO ×2 (09:06→21:07)
[2024-01-05] MEDS: Spironolactone 25 MG Tablet PO (09:06)
[2024-01-05] MEDS: Magnesium Chloride 64 MG Delay Rel.Tablet 128 MG PO (09:06)
[2024-01-05] MEDS: Lactobacillis Acidophilus 1 CAP PO (09:06)
[2024-01-05] MEDS: Menthol/Lanolin/Calamine/Znox 113 GM Tube 1 APPLIC TOPICAL ×2 (09:07→21:08)
[2024-01-05] MEDS: Petrolatum 33% Tube 1 APPLIC TOPICAL ×2 (09:07→21:07)
[2024-01-05 09:12] VITALS: BP 100/56; PULSE 75
[2024-01-05 11:40] VITALS: BP 109/58; PULSE 78; RESP 16; TEMP 36.5; O2SAT 98
[2024-01-05] MEDS: Furosemide 40 MG Tablet PO (11:43)
[2024-01-05] MEDS: Rivaroxaban 10 MG Tablet PO (17:32)
[2024-01-05] MEDS: traMADol 50 MG Tablet 25 MG PO (21:07)
[2024-01-05] MEDS: Mirtazapine 15 MG Tablet PO (21:08)
[2024-01-06 07:47] VITALS: BMI 17.4
[2024-01-06 09:42] VITALS: BP 96/54; PULSE 74; RESP 18; TEMP 36.4; O2SAT 96
[2024-01-06] MEDS: Petrolatum 33% Tube 1 APPLIC TOPICAL ×2 (09:43→21:06)
[2024-01-06] MEDS: Lactobacillis Acidophilus 1 CAP PO (09:43)
[2024-01-06] MEDS: Lansoprazole 15 MG Capsule.DR PO ×2 (09:43→21:06)
[2024-01-06] MEDS: Magnesium Chloride 64 MG Delay Rel.Tablet 128 MG PO (09:43)
[2024-01-06] MEDS: Menthol/Lanolin/Calamine/Znox 113 GM Tube 1 APPLIC TOPICAL ×2 (09:43→21:06)
[2024-01-06] MEDS: Ensure Plus High Protein 120 ML LIQUID PO (09:51)
[2024-01-06] MEDS: Tuberculin,Purif.prot.deriv. 50 TU/ML Vial 0.1 ML ID (10:46)
[2024-01-06] MEDS: Ensure Clear 120 ML Liquid PO (13:48)
[2024-01-06] MEDS: Mirtazapine 15 MG Tablet PO (21:06)
[2024-01-06] MEDS: Senna Tablet 2 TABLET PO (21:07)
[2024-01-06] MEDS: traMADol 50 MG Tablet 25 MG PO (21:16)
[2024-01-07 05:52] LABS: Absolute Lymphocyte Count 0.96 X10^3/uL (0.83-4.51); Absolute Neutrophil Count 5.5 X10^3/uL (2.0-7.7); Basophil# 0.03 X10^3/uL; Basophil% 0.4 % (0-1); Eosinophil# 0.25 X10^3/uL; Eosinophils% 3.4 % (0-5); Hematocrit 35.8 % (37-47); Hemoglobin 11.5 g/dL (12.0-15.0); Lymphocyte # 0.96 X10^3/ul (0.83-4.51); Lymphocyte % 13.2 % (19-41); Mean Corp Hgb Conc 32.1 g/dL (32-36); Mean Corpuscular Hgb 31.5 pg (27.0-32.0); Mean Corpuscular Volume 98.1 fL (81-99); Mean Platelet Vol. 9.4 fl (6.2-12.0); Monocyte# 0.54 X10^3/uL; Monocyte% 7.4 % (0-10); NRBC Flagged by Analyzer 0 % (0-5); Neutrophil # 5.48 X10^3/uL (2.7-7.7); Neutrophil % 75.2 % (47-70); Platelet Count 237 K/mm3 (150-450); RBC Distribution Width CV 15.1 % (11.6-14.6); RBC Distribution Width SD 54.4 fl (35.1-43.9); Red Blood Count 3.65 M/mm3 (4.2-5.4); White Blood Count 7.3 K/mm3 (4.4-11.0)
[2024-01-07 06:00] VITALS: BMI 17.8
[2024-01-07 06:34] LABS: Anion Gap 5 (5-15); BUN 20 mg/dL (7-18); BUN/Creat Ratio 38.3 RATIO (10-20); Calcium,Total 8.7 mg/dL (8.5-10.1); Chloride 104 mmol/L (98-107); Creatinine, Serum 0.52 mg/dL (0.55-1.02); EST Glomerular Filtration Rate 118 mL/min (>60); Est Glom Filt Rate - Afr Amer 143 mL/min (>60); Estimated Creatinine Clearance 36.08 ml/min; Glucose 110 mg/dL (74-106); Potassium 3.8 mmol/L (3.5-5.1); Sodium Level 136 mmol/L (136-145)
[2024-01-07] MEDS: Magnesium Chloride 64 MG Delay Rel.Tablet 128 MG PO (08:15)
[2024-01-07] MEDS: Lansoprazole 15 MG Capsule.DR PO ×2 (08:15→20:50)
[2024-01-07] MEDS: Lactobacillis Acidophilus 1 CAP PO (08:15)
[2024-01-07] MEDS: Ensure Clear 120 ML Liquid PO ×3 (08:15→18:11)
[2024-01-07] MEDS: Spironolactone 25 MG Tablet PO (08:15)
[2024-01-07] MEDS: Senna Tablet 2 TABLET PO ×2 (08:16→20:51)
[2024-01-07] MEDS: Menthol/Lanolin/Calamine/Znox 113 GM Tube 1 APPLIC TOPICAL ×2 (08:21→20:51)
[2024-01-07] MEDS: Petrolatum 33% Tube 1 APPLIC TOPICAL ×2 (08:21→20:51)
--- NOTE | 2024-01-07 11:10 | NURSING ---
Patient Care Manager Note; MDS for 01/05/2024 Complete
--- NOTE | 2024-01-07 11:34 | CASEMGMT ---
Social Work BIMS (05/09) and PHQ-2 (10/19) completed for MDS assessment. Pt expressed having little interest in doing things since her medical reason for admission d/t decline in ability to complete preferred activities. Pt is forward thinking and hopeful for recovery. No other issues identified. Piper Live, CORRESPONDENCE CLERK BENCH MANAGER
--- NOTE | 2024-01-07 12:57 | MDS.RN ---
Information for the MDS was obtained from review of the clinical record, interview of resident, staff, and direct observation of resident?s care.
--- NOTE | 2024-01-07 13:12 | CASEMGMT ---
Addendum entered by Piper Live 01/08/24 08:38: Son, Prakash, present for car transfer training with therapy and this worker updated son on AL accepted. No DC date set at this time. Original Note: Social Work [facility] evaluated pt and are able to accept at DC. SW will follow for DC date and planning. Piper Live, ALANNA CONTOUR PATH TAPE MILL OPERATOR
[2024-01-07] MEDS: Furosemide 40 MG Tablet PO (14:27)
[2024-01-07 16:00] VITALS: BP 107/61; PULSE 81; RESP 14; TEMP 36.7; O2SAT 98
--- NOTE | 2024-01-07 16:27 | NURSING ---
Contacted Dr. Soni office regarding seroma to right hip. Dr. Soni's nurse calls back and states that as long as there is no drainage or redness, there are NNO and Dr. Soni will look at hip at F/U appt on 01/10/24.
[2024-01-07] MEDS: traMADol 50 MG Tablet 25 MG PO (20:49)
[2024-01-07] MEDS: Mirtazapine 15 MG Tablet PO (20:50)
[2024-01-07 21:40] VITALS: RESP 17
[2024-01-08 04:00] VITALS: BMI 17.6
[2024-01-08 06:00] VITALS: BMI 17.6
[2024-01-08] MEDS: Senna Tablet 2 TABLET PO ×2 (07:55→21:49)
[2024-01-08] MEDS: Magnesium Chloride 64 MG Delay Rel.Tablet 128 MG PO (07:55)
[2024-01-08] MEDS: Lansoprazole 15 MG Capsule.DR PO ×2 (07:55→21:48)
[2024-01-08] MEDS: Lactobacillis Acidophilus 1 CAP PO (07:55)
[2024-01-08] MEDS: Petrolatum 33% Tube 1 APPLIC TOPICAL ×2 (07:55→21:49)
[2024-01-08] MEDS: Spironolactone 25 MG Tablet PO (07:55)
[2024-01-08] MEDS: Menthol/Lanolin/Calamine/Znox 113 GM Tube 1 APPLIC TOPICAL ×2 (07:56→21:49)
[2024-01-08 08:00] VITALS: BP 117/59; PULSE 89; RESP 16; TEMP 36.6; O2SAT 96
[2024-01-08] MEDS: Ensure Clear 120 ML Liquid PO ×2 (08:00→13:33)
[2024-01-08 09:55] VITALS: PULSE 70
[2024-01-08] MEDS: Mirtazapine 15 MG Tablet PO (21:48)
[2024-01-08] MEDS: traMADol 50 MG Tablet 25 MG PO (21:48)
[2024-01-09 06:00] VITALS: BMI 17.7
[2024-01-09 08:51] VITALS: BP 104/52; PULSE 80; RESP 16; TEMP 37.1; O2SAT 100
[2024-01-09] MEDS: Lactobacillis Acidophilus 1 CAP PO (08:53)
[2024-01-09] MEDS: Petrolatum 33% Tube 1 APPLIC TOPICAL ×2 (08:53→22:30)
[2024-01-09] MEDS: Spironolactone 25 MG Tablet PO (08:53)
[2024-01-09] MEDS: Menthol/Lanolin/Calamine/Znox 113 GM Tube 1 APPLIC TOPICAL ×2 (08:53→22:29)
[2024-01-09] MEDS: Ensure Clear 120 ML Liquid PO ×3 (08:53→18:12)
[2024-01-09] MEDS: Magnesium Chloride 64 MG Delay Rel.Tablet 128 MG PO (08:54)
[2024-01-09] MEDS: Senna Tablet 2 TABLET PO ×2 (08:54→22:29)
[2024-01-09] MEDS: Lansoprazole 15 MG Capsule.DR PO ×2 (08:54→22:28)
[2024-01-09] MEDS: Furosemide 40 MG Tablet PO (11:08)
[2024-01-09 14:39] VITALS: PULSE 84; RESP 16; O2SAT 97
--- NOTE | 2024-01-09 14:59 | CASEMGMT ---
Social Work SW phone sonTenisha Park, to discuss DC date. Son has no preference. ARMIDA communicated with [facility] via [email or web address] on DC date. [facility] was able to determine pts apartment will be available 01/17 at this time. ARMIDA inquired about coordinating [facility] or not. ARMIDA [place] [facility] [place]. ARMIDA phoned [facility] to update. Educated that if the apt is not available on the as planned, that is the start of pt's copay days. Pt can remain for a few more days, but if pt will need longer to wait for the apt, Medicare will issue LCD and pt would assume full PP pricing at $660/day. Son repeated back the information and expressed understanding. Son stated pt would DC to his house until the apt is available. Son can transport at DC. ARMIDA [place] [facility] [place] [facility]. Will await response from AL on therapy needs. Plan: DC 01/17 to [facility] [place], PT/OT, FWW Piper Live, DRIVER LICENSE REVIEWING OFFICER BED MAKER
[2024-01-09] MEDS: Mirtazapine 15 MG Tablet PO (22:29)
[2024-01-09] MEDS: Acetaminophen 500 MG Tablet 1000 MG PO (22:30)
[2024-01-10] MEDS: Ensure Clear 120 ML Liquid PO ×3 (08:43→18:32)
[2024-01-10] MEDS: Senna Tablet 2 TABLET PO ×2 (09:23→21:44)
[2024-01-10] MEDS: Magnesium Chloride 64 MG Delay Rel.Tablet 128 MG PO (09:24)
[2024-01-10] MEDS: Lansoprazole 15 MG Capsule.DR PO ×2 (09:24→21:44)
[2024-01-10] MEDS: Menthol/Lanolin/Calamine/Znox 113 GM Tube 1 APPLIC TOPICAL ×2 (09:24→21:54)
[2024-01-10] MEDS: Spironolactone 25 MG Tablet PO (09:24)
[2024-01-10] MEDS: Lactobacillis Acidophilus 1 CAP PO (09:24)
[2024-01-10 09:32] VITALS: BP 93/53; PULSE 78; RESP 16; TEMP 36.3; O2SAT 99
[2024-01-10] MEDS: Acetaminophen 500 MG Tablet 1000 MG PO ×2 (12:24→21:49)
--- NOTE | 2024-01-10 19:49 | DS.PCM_ITS ---
Providers Date of Admission: 12/29/23 Primary Care Physician: DULCE MORRELL Reason For Visit: RIGHT HIP FRACTURE Diagnosis Discharge Diagnosis (1) Debility: Status: Acute Code(s): R53.81 - Other malaise (2) Closed intertrochanteric fracture of femur: Status: Resolved Code(s): S72.143A - Displaced intertrochanteric fracture of unspecified femur, initial encounter for closed fracture Qualifiers: Encounter type: subsequent encounter Fracture alignment: displaced L aterality: right Fracture healing: with routine healing Qualified Code(s): S 72.141D - Displaced intertrochanteric fracture of right femur, subsequent encounter for closed fracture with routine healing (3) Status post open reduction and internal fixation (ORIF) of fracture: Status: Acute Code(s): Z98.890 - Other specified postprocedural states; Z87.81 - Personal history of (healed) traumatic fracture (4) Acute blood loss anemia: Status: Acute Code(s): D62 - Acute posthemorrhagic anemia (5) Depression: Status: Acute Code(s): F32.A - Depression, unspecified Qualifiers: Depression Type: unspecified Qualified Code(s): F32.A - Depression, unspecified (6) Acute diastolic (congestive) heart failure: Status: Resolved Code(s): I50.31 - Acute diastolic (congestive) heart failure (7) Critical aortic valve stenosis: Status: Inactive Code(s): I35.0 - Nonrheumatic aortic (valve) stenosis (8) Mitral valve insufficiency: Status: Inactive Code(s): I34.0 - Nonrheumatic mitral (valve) insufficiency Qualifiers: Cardiac valve disease etiology: nonrheumatic Qualified Code(s): I34.0 - Nonrheumatic mitral (valve) insufficiency (9) Urinary retention: Status: Chronic Code(s): R33.9 - Retention of urine, unspecified (10) Hiatal hernia: Status: Inactive Code(s): K44.9 - Diaphragmatic hernia without obstruction or gangrene (11) GERD (gastroesophageal reflux disease): Status: Inactive Code(s): K21.9 - Gastro-esophageal reflux disease without esophagitis Qualifiers: Esophagitis presence: esophagitis presence not specified Qualified Code(s): K21.9 - Gastro-esophageal reflux disease without esophagitis Medications at Discharge Home Medications acetaminophen 500 mg tablet 1,000 mg (2 x 500 mg) PO Q8 PRN Pain 1-10 Or Fever #1 TAB 12/29/23 furosemide 40 mg tablet 40 mg PO Q48H 30 days #15 tabs 01/10/24 lansoprazole 15 mg capsule,delayed release 15 mg PO BID 30 days #60 caps 01/10/24 magnesium chloride 64 mg (magnesium chloride) tablet,delayed release (Mag 64) 128 mg (2 x 64 mg) PO DAILY 30 days #60 tabs 01/10/24 mirtazapine 15 mg tablet 15 mg PO 2100 30 days #30 tabs 01/10/24 spironolactone 25 mg tablet 25 mg PO DAILY 30 days #30 tabs 01/10/24 Hospital Course Operations - (Right hip cephalomedullary nail fixation. ) Procedures None Summary of Care Provided Minutes Spent on Discharge: 35 Hospital Course: 88 year old female with below past medical history hospitalized for right hip fracture, underwent right hip cephalomedullary nail fixation 12/08/[address] Soni, admitted to [facility], then TCU with debility, here for rehabilitation, strengthening, prior to discharge home. Discharge 01/18/2024 to [facility] in [place], PT/OT, FWW. FWW: Patient unsafe to use a cane and requires a walker for ambulation. Physical Exam Const alert General Appearance: cooperative HEENT normocephalic Eyes PERRL and EOMs intact bilaterally Neck supple, no JVD and no carotid bruits Resp normal respiratory effort, normal air movement and clear to auscultation bilaterally Cardio regular rate and regular rhythm GI normal to inspection, nondistended, normoactive bowel sounds, non-tender and non-distended Extremity normal capillary refill General Extremity: Negative for edema Skin no rashes or lesions noted General Skin Exam: no breakdown Psych affect normal Appearance: appropriate Weight / BMI Weight Weight: 46.856 kg Body Mass Index (BMI) 17.7 ABG / Lab / Microbiology Data 01/07/24 05:10 01/07/24 05:10 D/C Instructions Discharge Diet: No restrictions Discharge Activity: Return to Normal Activity, May Shower and Use Walker Weight Bearing Status: Weight bearing as tolerated Call your doctor if you observe: Fever of 101 or Higher, Inability to urinate, Inability to have a bowel movement, Shortness of breath, Dizziness, Fainting spells, Swelling in the ankles, Chest pain and Uncontrolled pain Additional Instructions: Discharge 01/18/2024 to [facility] in [place], PT/OT, FWW. FWW: Patient unsafe to use a cane and requires a walker for ambulation. Please Follow Up With: Dr. Soni When: As scheduled. Meaningful Use Info Meaningful Use Meaningful Use Diagnoses (Choose all that apply): None applicable Ischemic Stroke Statin Dosing Therapy Reference: STATIN DOSE THERAPY REFERENCE: * Patients > 75 years receive moderate or high dose statin therapy. * Patients 75 years or YOUNGER should receive HIGH intensity statin dose unless contraindicated. You will be required to document reason for non-treatment if statin daily dose does not meet guidelines. HIGH DOSE STATIN THERAPY DAILY Atorvastatin > than or = to 40 mg Rosuvastatin > than or = to 20 mg Amlodipine + Atorvastatin > than or = to 2.5/40 mg Ezetimibe + Simvastatin 10/80 mg Simvastatin 80mg Discharge Plan Admission Admit Date/Time: 12/29/23 11:24 Primary Reason for Your Visit: Debility. Attending Provider: Joshua Zhang Chi Primary Care Provider: DULCE MORRELL Consulting Providers: Courtney Pierre Instructions Additional Instructions / Restrictions: Discharge 01/18/2024 to [facility] in [place], PT/OT, FWW. FWW: Patient unsafe to use a cane and requires a walker for ambulation. Discharge Orders/Prescriptions Prescriptions: New furosemide 40 mg Tablet 40 mg PO Q48H 30 Days Qty: 15 0RF lansoprazole 15 mg Capsule,Delayed Release(Dr/Ec) 15 mg PO BID 30 Days Qty: 60 0RF magnesium chloride [Mag 64] 64 mg Tablet,Delayed Release (Dr/Ec) 128 mg PO DAILY 30 Days Qty: 60 0RF mirtazapine 15 mg Tablet 15 mg PO 2100 30 Days Qty: 30 0RF spironolactone 25 mg Tablet 25 mg PO DAILY 30 Days Qty: 30 0RF Continued acetaminophen 500 mg Tablet 1,000 mg PO Q8 PRN (Reason: Pain 1-10 Or Fever) Qty: 1 0RF Discontinued bisacodyl 10 mg Suppository 10 mg TX X1 PRN (Reason: Constipation) Qty: 1 0RF furosemide 40 mg Tablet 40 mg PO Q48H Qty: 1 0RF L.acidoph,saliva-B.bif-S.therm 175 mg Capsule 1 cap PO DAILY Qty: 1 0RF Ensure Plus High Protein 0.08 gram-1.5 kcal/mL Liquid 120 ml PO TID Qty: 1 0RF lansoprazole 15 mg Capsule,Delayed Release(Dr/Ec) 15 mg PO BID Qty: 1 0RF magnesium chloride [Mag 64] 64 mg Tablet,Delayed Release (Dr/Ec) 128 mg PO DAILY Qty: 1 0RF magnesium hydroxide 400 mg/5 mL Suspension 30 ml PO X1 PRN (Reason: Constipation) Qty: 30 0RF menthol-zinc oxide [Calmoseptine] 0.44-20.6 % Ointment 1 applic topical BID Qty: 113 0RF Protocol: *Topical Application Instructions APPLICATION INSTRUCTIONS: BUTTOCKS mirtazapine 15 mg Tablet 15 mg PO 2100 Qty: 1 0RF sennosides [senna] 8.6 mg Tablet 8.6 mg PO BID Qty: 1 0RF Xarelto 10 mg Tablet 10 mg PO DINNER Qty: 7 0RF Rx Instructions: DC after the dose on 01/05/24 tramadol 50 mg Tablet 25 mg PO Q8H PRN (Reason: pain 3-10) Qty: 1 0RF spironolactone 25 mg Tablet 25 mg PO DAILY Qty: 1 0RF tamsulosin 0.4 mg Capsule 0.4 mg PO DAILY@1730 Qty: 1 0RF Rx Instructions: One daily for urine retention (DME) Petrolatum 33% [Eucerin Eqivalent] See Rx Instructions .Route .MEDSUPPLY Rx Instructions: Apply to the legs distal to the knees. Referrals / Follow Up: DULCE MORRELL [Other] (follow up after d/c from TCU) Isauro Rucker-Cardiology [Other] - 04/15/24 12:45 pm Babak Aggarwal DPM [Med Staff - Active Staff] - 03/21/24 10:00 am Disposition Disposition (needs filled in before D/C Order can be placed): Assisted Living
[2024-01-10] MEDS: Mirtazapine 15 MG Tablet PO (21:45)
[2024-01-10] MEDS: Petrolatum 33% Tube 1 APPLIC TOPICAL (21:53)
[2024-01-11 06:00] VITALS: BMI 17.4
[2024-01-11 07:45] VITALS: BP 131/68; PULSE 80; RESP 15; TEMP 36.6; O2SAT 99
[2024-01-11] MEDS: Lansoprazole 15 MG Capsule.DR PO ×2 (07:48→20:55)
[2024-01-11] MEDS: Magnesium Chloride 64 MG Delay Rel.Tablet 128 MG PO (07:48)
[2024-01-11] MEDS: Senna Tablet 2 TABLET PO (07:48)
[2024-01-11] MEDS: Spironolactone 25 MG Tablet PO (07:48)
[2024-01-11] MEDS: Lactobacillis Acidophilus 1 CAP PO (07:48)
[2024-01-11] MEDS: Menthol/Lanolin/Calamine/Znox 113 GM Tube 1 APPLIC TOPICAL ×2 (07:48→20:55)
[2024-01-11] MEDS: Ensure Clear 120 ML Liquid PO ×2 (07:52→12:54)
[2024-01-11] MEDS: Furosemide 40 MG Tablet PO (10:27)
--- NOTE | 2024-01-11 16:06 | CASEMGMT ---
Social Work Son now requesting a w/c for community distances and throughout [place]. Son to purchase FWW. SW sent new referral and updated [employer]. SW sent DC Summary to [facility] via [employer]. requested again to notify this worker if a skilled C company needs coordinated. Piper Live, ALANNA VILLANUEVAW
[2024-01-11] MEDS: traMADol 50 MG Tablet 25 MG PO (20:55)
[2024-01-11] MEDS: Mirtazapine 15 MG Tablet PO (20:55)
[2024-01-11] MEDS: Petrolatum 33% Tube 1 APPLIC TOPICAL (22:20)
[2024-01-12 06:00] VITALS: BMI 17.0
[2024-01-12] MEDS: Ensure Clear 120 ML Liquid PO ×3 (07:58→17:44)
[2024-01-12] MEDS: Acetaminophen 500 MG Tablet 1000 MG PO ×2 (08:00→20:23)
[2024-01-12] MEDS: Spironolactone 25 MG Tablet PO (08:01)
[2024-01-12] MEDS: Lactobacillis Acidophilus 1 CAP PO (08:01)
[2024-01-12] MEDS: Magnesium Chloride 64 MG Delay Rel.Tablet 128 MG PO (08:02)
[2024-01-12] MEDS: Lansoprazole 15 MG Capsule.DR PO ×2 (08:02→20:23)
[2024-01-12] MEDS: Menthol/Lanolin/Calamine/Znox 113 GM Tube 1 APPLIC TOPICAL ×2 (08:08→20:26)
[2024-01-12 13:10] VITALS: BP 127/76; PULSE 83; RESP 16; TEMP 36.5; O2SAT 95
[2024-01-12] MEDS: Mirtazapine 15 MG Tablet PO (20:23)
[2024-01-12] MEDS: Petrolatum 33% Tube 1 APPLIC TOPICAL (20:26)
[2024-01-13] MEDS: Ensure Clear 120 ML Liquid PO ×2 (08:01→17:50)
[2024-01-13] MEDS: Magnesium Chloride 64 MG Delay Rel.Tablet 128 MG PO (09:59)
[2024-01-13] MEDS: Lactobacillis Acidophilus 1 CAP PO (09:59)
[2024-01-13 10:00] VITALS: BP 103/56; PULSE 91; RESP 16; TEMP 36.7; O2SAT 98
[2024-01-13] MEDS: Lansoprazole 15 MG Capsule.DR PO ×2 (10:00→20:41)
[2024-01-13] MEDS: Spironolactone 25 MG Tablet PO (10:00)
--- NOTE | 2024-01-13 10:05 | NURSING ---
Patient off unit on [facility] with family.
[2024-01-13] MEDS: Menthol/Lanolin/Calamine/Znox 113 GM Tube 1 APPLIC TOPICAL ×2 (10:11→20:47)
--- NOTE | 2024-01-13 17:45 | NURSING ---
Patient returned from [facility] with family at this time.
[2024-01-13] MEDS: Senna Tablet 2 TABLET PO (17:50)
[2024-01-13] MEDS: Mirtazapine 15 MG Tablet PO (20:41)
[2024-01-13] MEDS: Acetaminophen 500 MG Tablet 1000 MG PO (20:44)
[2024-01-13] MEDS: Petrolatum 33% Tube 1 APPLIC TOPICAL (20:48)
[2024-01-14 05:41] LABS: Absolute Lymphocyte Count 1.16 X10^3/uL (0.83-4.51); Absolute Neutrophil Count 3.1 X10^3/uL (2.0-7.7); Basophil# 0.05 X10^3/uL; Eosinophil# 0.23 X10^3/uL; Eosinophils% 4.5 % (0-5); Hematocrit 34.9 % (37-47); Hemoglobin 11.4 g/dL (12.0-15.0); Lymphocyte # 1.16 X10^3/ul (0.83-4.51); Lymphocyte % 22.6 % (19-41); Mean Corp Hgb Conc 32.7 g/dL (32-36); Mean Corpuscular Hgb 30.6 pg (27.0-32.0); Mean Corpuscular Volume 93.6 fL (81-99); Mean Platelet Vol. 9.4 fl (6.2-12.0); Monocyte# 0.53 X10^3/uL; Monocyte% 10.3 % (0-10); NRBC Flagged by Analyzer 0 % (0-5); Neutrophil # 3.14 X10^3/uL (2.7-7.7); Neutrophil % 61.2 % (47-70); Platelet Count 176 K/mm3 (150-450); RBC Distribution Width CV 14.5 % (11.6-14.6); RBC Distribution Width SD 49.8 fl (35.1-43.9); Red Blood Count 3.73 M/mm3 (4.2-5.4); White Blood Count 5.1 K/mm3 (4.4-11.0)
[2024-01-14 06:00] VITALS: BMI 17.2
[2024-01-14 06:21] LABS: Anion Gap 7 (5-15); BUN 19 mg/dL (7-18); Calcium,Total 9.1 mg/dL (8.5-10.1); Chloride 108 mmol/L (98-107); Creatinine, Serum 0.63 mg/dL (0.55-1.02); EST Glomerular Filtration Rate 94 mL/min (>60); Est Glom Filt Rate - Afr Amer 114 mL/min (>60); Glucose 95 mg/dL (74-106); Potassium 3.2 mmol/L (3.5-5.1); Sodium Level 139 mmol/L (136-145)
[2024-01-14] MEDS: Lansoprazole 15 MG Capsule.DR PO ×2 (08:06→19:59)
[2024-01-14] MEDS: Ensure Clear 120 ML Liquid PO ×3 (08:06→17:51)
[2024-01-14] MEDS: Spironolactone 25 MG Tablet PO (08:06)
[2024-01-14] MEDS: Lactobacillis Acidophilus 1 CAP PO (08:06)
[2024-01-14] MEDS: Magnesium Chloride 64 MG Delay Rel.Tablet 128 MG PO (08:06)
[2024-01-14] MEDS: Menthol/Lanolin/Calamine/Znox 113 GM Tube 1 APPLIC TOPICAL ×2 (08:07→19:59)
[2024-01-14] MEDS: Potassium Chloride Oral Tablet 20 MEQ 40 MEQ PO (08:08)
[2024-01-14] MEDS: Senna Tablet 2 TABLET PO (09:12)
[2024-01-14 14:00] VITALS: BP 109/62; PULSE 78; RESP 16; TEMP 36.7; O2SAT 98
--- NOTE | 2024-01-14 15:44 | NURSING ---
Daughter reports to FONDANT COOKER that patient seems to have increased frequency with urination. When this nurse enters room, patient is alone in room and does report she pees a lot, but that it has not been more than normal. Patient also denies burning or difficulty urinating at this time.
--- NOTE | 2024-01-14 15:48 | CASEMGMT ---
Addendum entered by Piper Live 01/14/24 16:13: [facility] requesting therapy order and updated notes. Both sent via [employer]. Original Note: Social Work SW sent message via [employer] to [facility] to confirm DC. AL responded that son will be taking pt home for one day as the apt will not be available until 01/18. SW phoned son to inquire as this information was not communicated to this worker. Son confirmed. SW offered for pt to remain another day, if pt is able to pay the copay. Son agreed stating pt wanting to transfer directly to the AL. SW agreed to adjust DC date. Son appreciative. SW responded back to AL to update. Inquired again if this worker needed to coordinate therapy. SW updated [employer] for w/c delivery. IDT updated. Plan: DC changed to 01/18 to [facility] as planned, w/c Piper Live, ALANNA NITROCELLULOSE MAKER
[2024-01-14] MEDS: Magnesium Hydroxide 30 ML UDC PO (17:51)
[2024-01-14] MEDS: Mirtazapine 15 MG Tablet PO (19:59)
[2024-01-14] MEDS: Petrolatum 33% Tube 1 APPLIC TOPICAL (20:00)
[2024-01-14] MEDS: traMADol 50 MG Tablet 25 MG PO (21:22)
[2024-01-15 04:00] VITALS: BMI 17.2
[2024-01-15 06:00] VITALS: BMI 17.2
[2024-01-15 06:48] LABS: Anion Gap 7 (5-15); BUN 19 mg/dL (7-18); BUN/Creat Ratio 33.7 RATIO (10-20); Calcium,Total 8.7 mg/dL (8.5-10.1); Chloride 107 mmol/L (98-107); Creatinine, Serum 0.56 mg/dL (0.55-1.02); EST Glomerular Filtration Rate 108 mL/min (>60); Est Glom Filt Rate - Afr Amer 131 mL/min (>60); Estimated Creatinine Clearance 35.74 ml/min; Glucose 95 mg/dL (74-106); Potassium 3.8 mmol/L (3.5-5.1); Sodium Level 140 mmol/L (136-145)
[2024-01-15] MEDS: Lansoprazole 15 MG Capsule.DR PO ×2 (08:52→20:54)
[2024-01-15] MEDS: Spironolactone 25 MG Tablet PO (08:52)
[2024-01-15] MEDS: Lactobacillis Acidophilus 1 CAP PO (08:53)
[2024-01-15] MEDS: Menthol/Lanolin/Calamine/Znox 113 GM Tube 1 APPLIC TOPICAL ×2 (08:53→20:54)
[2024-01-15] MEDS: Magnesium Chloride 64 MG Delay Rel.Tablet 128 MG PO (08:53)
[2024-01-15] MEDS: Ensure Clear 120 ML Liquid PO ×3 (08:59→17:38)
[2024-01-15 09:00] VITALS: BP 101/55; PULSE 76; RESP 16; TEMP 36.6; O2SAT 100
[2024-01-15] MEDS: Furosemide 40 MG Tablet PO (12:00)
[2024-01-15 12:02] VITALS: BP 128/69; PULSE 86
[2024-01-15 14:42] VITALS: BMI 17.5
[2024-01-15] MEDS: Mirtazapine 15 MG Tablet PO (20:54)
[2024-01-15] MEDS: Petrolatum 33% Tube 1 APPLIC TOPICAL (20:55)
[2024-01-15] MEDS: traMADol 50 MG Tablet 25 MG PO (21:00)
[2024-01-16 06:00] VITALS: BMI 17.1
[2024-01-16] MEDS: Menthol/Lanolin/Calamine/Znox 113 GM Tube 1 APPLIC TOPICAL ×2 (07:53→20:13)
[2024-01-16] MEDS: Lansoprazole 15 MG Capsule.DR PO ×2 (07:54→20:13)
[2024-01-16] MEDS: Magnesium Chloride 64 MG Delay Rel.Tablet 128 MG PO (07:54)
[2024-01-16] MEDS: Spironolactone 25 MG Tablet PO (07:54)
[2024-01-16] MEDS: Ensure Clear 120 ML Liquid PO ×3 (07:54→17:41)
[2024-01-16] MEDS: Lactobacillis Acidophilus 1 CAP PO (07:54)
[2024-01-16 12:03] VITALS: BP 111/63; PULSE 77; RESP 16; TEMP 36.6; O2SAT 99
[2024-01-16] MEDS: Mirtazapine 15 MG Tablet PO (20:13)
[2024-01-16] MEDS: Petrolatum 33% Tube 1 APPLIC TOPICAL (20:13)
[2024-01-16] MEDS: Acetaminophen 500 MG Tablet 1000 MG PO (20:22)
[2024-01-17 06:00] VITALS: BMI 17.1
[2024-01-17] MEDS: Ensure Clear 120 ML Liquid PO ×2 (08:05→17:25)
[2024-01-17] MEDS: Lactobacillis Acidophilus 1 CAP PO (08:08)
[2024-01-17] MEDS: Menthol/Lanolin/Calamine/Znox 113 GM Tube 1 APPLIC TOPICAL ×2 (08:08→20:02)
[2024-01-17] MEDS: Spironolactone 25 MG Tablet PO (08:08)
[2024-01-17] MEDS: Magnesium Chloride 64 MG Delay Rel.Tablet 128 MG PO (08:09)
[2024-01-17] MEDS: Lansoprazole 15 MG Capsule.DR PO ×2 (08:09→20:02)
[2024-01-17 08:22] VITALS: BP 111/59; PULSE 78; RESP 16; O2SAT 98
--- NOTE | 2024-01-17 11:22 | MDS.RN ---
MDS pain interview completed.
[2024-01-17 13:44] VITALS: BP 118/62; PULSE 85; RESP 17; TEMP 36.8; O2SAT 100
[2024-01-17] MEDS: Furosemide 40 MG Tablet PO (13:46)
[2024-01-17] MEDS: Petrolatum 33% Tube 1 APPLIC TOPICAL (20:02)
[2024-01-17] MEDS: Mirtazapine 15 MG Tablet PO (20:02)
[2024-01-18] MEDS: Ensure Clear 120 ML Liquid PO ×2 (08:13→17:38)
[2024-01-18] MEDS: Acetaminophen 500 MG Tablet 1000 MG PO (09:58)
[2024-01-18] MEDS: Magnesium Chloride 64 MG Delay Rel.Tablet 128 MG PO (10:01)
[2024-01-18] MEDS: Lactobacillis Acidophilus 1 CAP PO (10:01)
[2024-01-18] MEDS: Menthol/Lanolin/Calamine/Znox 113 GM Tube 1 APPLIC TOPICAL ×2 (10:02→20:18)
[2024-01-18] MEDS: Spironolactone 25 MG Tablet PO (10:02)
[2024-01-18] MEDS: Lansoprazole 15 MG Capsule.DR PO ×2 (10:02→20:19)
--- NOTE | 2024-01-18 15:13 | CASEMGMT ---
Social Work BIMS (05/09) and PHQ-2 () completed for MDS assessment. Piper Live MSW NOC ENGINEER
[2024-01-18 16:00] VITALS: BP 99/54; PULSE 77; RESP 16; TEMP 36.6; O2SAT 100
[2024-01-18 19:11] VITALS: PULSE 89; RESP 16; O2SAT 97
[2024-01-18] MEDS: Petrolatum 33% Tube 1 APPLIC TOPICAL (20:17)
[2024-01-18] MEDS: Mirtazapine 15 MG Tablet PO (20:19)
[2024-01-19 05:55] VITALS: PULSE 81; RESP 18; O2SAT 99
[2024-01-19 06:00] VITALS: BMI 17.0
[2024-01-19] MEDS: Ensure Clear 120 ML Liquid PO ×2 (08:35→12:09)
[2024-01-19] MEDS: Spironolactone 25 MG Tablet PO (08:36)
[2024-01-19] MEDS: Lactobacillis Acidophilus 1 CAP PO (08:36)
[2024-01-19] MEDS: Lansoprazole 15 MG Capsule.DR PO (08:36)
[2024-01-19] MEDS: Magnesium Chloride 64 MG Delay Rel.Tablet 128 MG PO (08:36)
[2024-01-19] MEDS: Menthol/Lanolin/Calamine/Znox 113 GM Tube 1 APPLIC TOPICAL (08:36)
[2024-01-19 10:36] VITALS: BP 101/54; PULSE 79; RESP 18; TEMP 36.6; O2SAT 99
[2024-01-19] MEDS: Furosemide 40 MG Tablet PO (12:09)
== END 2024-01-19 13:00 | disposition home or self-care (01) | DRG 559 ==
PROVIDERS: Admitting Provider Internal Medicine; Visit Provider Family Medicine Geriatric Medicine
DX: S72.141D Displaced intertrochanteric fracture of right femur, subsequent encounter for closed fracture with routine healing (principal); I50.31 Acute diastolic (congestive) heart failure; D62 Acute posthemorrhagic anemia; F32.A Depression, unspecified; K44.9 Diaphragmatic hernia without obstruction or gangrene; K21.9 Gastro-esophageal reflux disease without esophagitis; W19.XXXD Unspecified fall, subsequent encounter; Z79.01 Long term (current) use of anticoagulants; R33.9 Retention of urine, unspecified; Z79.899 Other long term (current) drug therapy; Z23 Encounter for immunization
CPT/HCPCS: 36415; 72170; 73552; 73562; 80048; 85025; 90480; 92507; 92523; 97110; 97116; 97129; 97130; 97162; 97166; 97530; 97535; 97802; 91322; A4216